=== PATIENT | female | born 1945 | race Hispanic/Latino ===

== ENCOUNTER 2019-07-18 17:20 | Inpatient (IN) | payer MEDICARE ==
[~2019-07-18] VITALS: Ht 172.7 cm; Wt 104.7 kg
[~2019-07-18 17:20] MED LIST: ALBUMIN (HUMAN) 25% 50 ML IV ONE; AMINOCAPROIC ACID 250 MG/ML 20 ML VIAL IV ONE; CALCIUM CHLORIDE 100 MG/ML 10 ML SYG IVP ONE; HEPARIN SODIUM 1000UNIT/ML 10ML VIAL IV ONE; MAGNESIUM SULFATE 1 GM/2 ML VIAL IM ONE; MANNITOL 25% 50ML VIAL IV ONE; PHENYLEPHRINE HCL 10 MG/ML 1ML VIAL IV ONE; SODIUM BICARB 8.4% 50ML SYRINGE IVP ONE
[2019-07-18] MEDS ORDERED: LIDOCAINE HCL-MPF 1% 2ML VIAL IV PRN (17:30)
[2019-07-18] MEDS ORDERED: POTASSIUM CHLORIDE 20MEQ/100ML 100 ML IV PRN (17:30)
[2019-07-18] MEDS ORDERED: DEXTROSE 50%-WATER 50 ML DISP.SYRIN IV PRN (17:30)
[2019-07-18] MEDS ORDERED: POTASSIUM CHLORIDE 10% ELIXIR 20 MEQ/15 ML UDCUP PO PRN (17:30)
[2019-07-18] MEDS ORDERED: POTASSIUM CHLORIDE 20 MEQ ERTAB PO PRN (17:30)
[2019-07-18] MEDS ORDERED: GLUCAGON 1MG KIT 1 MG ML IM PRN (17:30)
[2019-07-18 17:55] VITALS: BP 104/57
[2019-07-18 18:09] LABS: BASOPHILS % (AUTO) 0.3 % (0.0-5.0); LYMPHOCYTES % (AUTO) 8.9 % (21.0-51.0); MEAN CORPUSCULAR HEMOGLOBIN 30.1 pg (27.0-33.0); MEAN CORPUSCULAR HGB CONC 33.2 g/dL (32.0-36.0); MEAN CORPUSCULAR VOLUME 90.4 fL (79-99); NEUTROPHILS % (AUTO) 80.2 % (40.0-77.0); PLATELET COUNT (AUTO) 218 K/uL (130-400); RED BLOOD CELL COUNT(AUTO) 3.76 MIL/uL (4.00-5.50); RED CELL DISTRIBUTION WIDTH 16.7 % (11.0-15.5); WHITE BLOOD COUNT (AUTO) 18.7 K/uL (4.8-10.8)
[2019-07-18 18:28] LABS: ALBUMIN 1.4 g/dL (3.5-5.0); BILIRUBIN,TOTAL 1.3 mg/dL (0.2-1.0); POTASSIUM 3.2 mmol/L (3.5-5.1); TOTAL PROTEIN, SERUM 5.8 g/dL (6.0-8.3)
[2019-07-18 18:40] LABS: INR 0.99 (0.85-1.15); PARTIAL THROMBOPLASTIN TIME 29.4 SEC (26.3-35.5); PROTHROMBIN TIME 10.7 SEC (9.6-11.6)
[2019-07-18 18:41] LABS: HEMOGLOBIN A1C 5.8 % (4.0-6.0)
[2019-07-18 19:26] LABS: B-TYPE NATRIURETIC PEPTIDE 218 pg/mL (0-100)
[2019-07-18 19:40] VITALS: BP 99/52
[2019-07-18] MEDS ORDERED: NAPR-1023 PO (20:10)
[2019-07-18] MEDS ORDERED: ROSU20TA23 PO (20:12)
[2019-07-18] MEDS ORDERED: GABA-531 PO (20:12)
[2019-07-18] MEDS ORDERED: LISI-613 PO (20:12)
[2019-07-18] MEDS ORDERED: OMEP40CA13 PO (20:12)
[2019-07-18] MEDS: INSULIN HUMULIN R 100 UNIT/ML 3ML SQ SCH (20:48)
[2019-07-18] MEDS ORDERED: TRAMADOL HCL 50 MG TABLET PO PRN ×2 (21:45)
[2019-07-18] MEDS ORDERED: ACETAMINOPHEN 325 MG TAB PO PRN (21:45)
[2019-07-19] VITALS (17 sets, daily range): BP systolic 82–158; BP diastolic 48–92
[2019-07-19] MEDS ORDERED: SODIUM CHLORIDE 0.9% 500ML 500 ML IV ONE (01:14)
[2019-07-19] MEDS: LIDOCAINE HCL-MPF 1% 2ML VIAL IV PRN ×2 (01:17→06:19)
[2019-07-19] MEDS: POTASSIUM CHLORIDE 20MEQ/100ML 100 ML IV PRN ×7 (01:18→23:48)
[2019-07-19 03:54] LABS: HEMATOCRIT 31.7 % (36-48); MEAN CORPUSCULAR HEMOGLOBIN 30.3 pg (27.0-33.0); MEAN CORPUSCULAR HGB CONC 34.1 g/dL (32.0-36.0); PLATELET COUNT (AUTO) 227 K/uL (130-400); RED BLOOD CELL COUNT(AUTO) 3.56 MIL/uL (4.00-5.50); RED CELL DISTRIBUTION WIDTH 16.2 % (11.0-15.5)
[2019-07-19 04:04] LABS: CREATININE 1.9 mg/dL (0.5-1.5); POTASSIUM 3.6 mmol/L (3.5-5.1)
[2019-07-19] MEDS: INSULIN HUMULIN R 100 UNIT/ML 3ML SQ SCH (06:05)
--- NOTE | 2019-07-19 06:48 | NUR ---
PT TAKEN TO OR PREP AT THIS TIME BY TECH AND RN. NO S/S OF DISTRESS. PT IN BED. BEDSIDE REPORT DONE AT THIS TIME.
[2019-07-19] MEDS ORDERED: NOREPINEPHRINE BITARTRATE 8 MG in DEXTROSE 5%-WATER 250 ML IV PRN (07:00)
[2019-07-19] MEDS ORDERED: EPINEPHRINE 10 MG in SODIUM CHLORIDE 0.9% 240 ML IV PRN (07:00)
[2019-07-19] MEDS ORDERED: AMINOCAPROIC ACID 15,000 MG in SODIUM CHLORIDE 0.9% 500ML 420 ML IV PRN (07:00)
[2019-07-19] MEDS ORDERED: SODIUM CHLORIDE 0.9% 1000ML 1,000 ML IV ONE ×2 (07:14→12:00)
[2019-07-19] MEDS ORDERED: CLINDAMYCIN 900 MG/D5% WATER 50 ML IV ONE (07:15)
[2019-07-19] MEDS ORDERED: NITROGLYCERIN 50 MG/D5% WATER 1 BOT ONE (07:25)
[2019-07-19] MEDS ORDERED: ROPIVACAINE 0.5% 5MG/ML 30ML IJ ONE (07:39)
[2019-07-19] MEDS ORDERED: CLINDAMYCIN PHOSPHATE 150 MG/ML 6ML VIAL ONE (07:39)
--- NOTE | 2019-07-19 07:45 | NUR ---
IV SITE iv right forearm infiltrated ,dcd restarted left anticub with 20 gauge by Ayana Pringle RN Addendum: 07/19/19 at 0820 by BEV LUBIN RN RN Amended: Links added.
--- NOTE | 2019-07-19 08:16 | NUR ---
RASH BRIGHT RED RASH PRESENT GROIN AREA AKASH INNER THIGHS UPPER TORSO Addendum: 07/19/19 at 0820 by BEV LUBIN RN RN Amended: Links added.
[2019-07-19] MEDS ORDERED: CEFAZOLIN SODIUM 1 GM VIAL IVP PRN (08:30)
[2019-07-19] MEDS ORDERED: PROTAMINE SULFATE 10 MG/ML 25ML VIAL IV ONE (08:55)
[2019-07-19] MEDS ORDERED: NOREPINEPHRINE BITARTRATE 1 MG/1 ML ML IV ONE (08:55)
[2019-07-19] MEDS ORDERED: SODIUM BICARB 50MEQ 50ML VIAL ONE ×2 (08:55→12:26)
[2019-07-19] MEDS ORDERED: FENTANYL CITRATE PF 50 MCG/1 ML 20ML VIAL IJ ONE (08:55)
[2019-07-19] MEDS ORDERED: HEPARIN SODIUM 1000UNIT/ML 10ML VIAL ONE (08:55)
[2019-07-19] MEDS ORDERED: MIDAZOLAM HCL 1 MG/ML 2ML VIAL ONE (08:55)
[2019-07-19] MEDS ORDERED: AMINOCAPROIC ACID 250 MG/ML 20 ML VIAL IV ONE (08:55)
[2019-07-19] MEDS ORDERED: EPINEPHRINE 1 MG/ML AMPULE ONE (08:55)
[2019-07-19] MEDS ORDERED: PROPOFOL 10 MG/ML 20ML VIAL IV ONE (08:55)
[2019-07-19] MEDS ORDERED: ESMOLOL HCL 10 MG/ML 10 ML VIAL ONE (08:55)
[2019-07-19] MEDS ORDERED: LIDOCAINE PF 2% 5ML ABBOJECT ONE (08:55)
[2019-07-19] MEDS ORDERED: ROCURONIUM 10MG/1ML SYR 10 MG/ML ML ONE ×2 (08:56→10:59)
[2019-07-19] MEDS ORDERED: KETAMINE 50MG/ML SYRINGE 50 MG/ML DISP.SYRIN IV ONE (08:57)
[2019-07-19] MEDS: ATORVASTATIN CALCIUM 40 MG TABLET PO SCH (09:00)
[2019-07-19] MEDS ORDERED: PANTOPRAZOLE SODIUM 40 MG TABLET.DR PO SCH (09:00)
[2019-07-19] MEDS ORDERED: VANCOMYCIN 1GM+NS 250ML 250 ML IV ONE ×2 (09:06→19:06)
[2019-07-19] MEDS ORDERED: DELNIDO FORMULA 1 BAG IV ONE (09:22)
[2019-07-19 09:54] LABS: ABG BASE EXCESS -9.5 mmol/L (-2.0-3.0); ABG HCO3 15.8 mmol/L (21.0-28.0); ABG OXYGEN SATURATION 98.8 % (95.0-99.0); ABG PCO2 33 mmHg (32-45)
[2019-07-19] MEDS ORDERED: SODIUM CHLORIDE 0.9% 500ML 500 ML IV SCH (10:42)
[2019-07-19] MEDS ORDERED: GLUCAGON 1MG KIT 1 MG ML IM PRN (10:45)
[2019-07-19] MEDS ORDERED: NITROGLYCERIN 50 MG/D5% WATER 250 BOT IV SCH (10:45)
[2019-07-19] MEDS ORDERED: NOREPINEPHRINE 4MG/NS 250ML 250 ML IV PRN (10:45)
[2019-07-19] MEDS ORDERED: SODIUM CHLORIDE 0.9% 250 ML IV PRN (10:45)
[2019-07-19] MEDS ORDERED: MORPHINE SULFATE 4 MG/1ML SYG IV PRN (10:45)
[2019-07-19] MEDS ORDERED: INSULIN REGULAR, HUMAN 3ML 100 UNIT in SODIUM CHLORIDE 0.9% 99 ML IV SCH ×2 (10:45)
[2019-07-19] MEDS ORDERED: ACETAMINOPHEN 650 MG SUPPOSITORY RC PRN (10:45)
[2019-07-19] MEDS ORDERED: DEXTROSE 50%-WATER 50 ML DISP.SYRIN IV PRN (10:45)
[2019-07-19] MEDS ORDERED: AMINOCAPROIC ACID 15,000 MG in SODIUM CHLORIDE 0.9% 250 ML IV SCH (10:45)
[2019-07-19] MEDS ORDERED: ALBUMIN (HUMAN) 5% 250 ML IV PRN (10:45)
[2019-07-19] MEDS ORDERED: CALCIUM GLUCONATE 1 GM in SODIUM CHLORIDE 0.9% 50 ML IV PRN (10:45)
[2019-07-19] MEDS ORDERED: SODIUM CHLORIDE 0.9% 10 ML VIAL IVP PRN (10:45)
[2019-07-19] MEDS ORDERED: MORPHINE SULFATE 2 MG/ML 1ML SYG IV PRN (10:45)
[2019-07-19] MEDS ORDERED: ONDANSETRON HCL 4 MG/2 ML VIAL IV PRN (10:45)
[2019-07-19] MEDS ORDERED: POTASSIUM PHOS 15 mMOL+NS250ML 250 ML IV PRN (10:45)
[2019-07-19] MEDS ORDERED: MAGNESIUM 2GM PREMIX 50ML 50 ML IV PRN (10:45)
[2019-07-19] MEDS ORDERED: EPINEPHRINE 10 MG in DEXTROSE 5%-WATER 250 ML IV PRN (10:45)
[2019-07-19] MEDS ORDERED: ACETAMINOPHEN 325 MG TAB PO PRN (10:45)
[2019-07-19] MEDS ORDERED: SODIUM CHLORIDE 0.9% 1000ML 1,000 ML IV SCH (10:45)
[2019-07-19] MEDS ORDERED: PROPOFOL 1000 MG/100 ML 100 ML IV PRN (10:45)
[2019-07-19 11:17] LABS: ABG BASE EXCESS -5.1 mmol/L (-2.0-3.0); ABG OXYGEN SATURATION 98.5 % (95.0-99.0); ABG PCO2 26 mmHg (32-45)
[2019-07-19] MEDS ORDERED: PROTAMINE SULFATE 10 MG/ML 5 ML VIAL ONE (11:39)
[2019-07-19 11:47] LABS: ABG BASE EXCESS -0.6 mmol/L (-2.0-3.0); ABG HCO3 21.7 mmol/L (21.0-28.0); ABG OXYGEN SATURATION 98.2 % (95.0-99.0); ABG PCO2 27 mmHg (32-45)
[2019-07-19] MEDS ORDERED: AMIODARONE HCL 50 MG/ML 3 ML VIAL ONE (11:54)
[2019-07-19 12:20] LABS: ABG BASE EXCESS -6.6 mmol/L (-2.0-3.0); ABG HCO3 18.3 mmol/L (21.0-28.0); ABG OXYGEN SATURATION 96.8 % (95.0-99.0); ABG PCO2 34 mmHg (32-45)
--- NOTE | 2019-07-19 12:52 | NUR ---
S/P MICS MVR RECEIVED SEDATED AND INTUBATED. ET TUBE SECURE. R.T. HERE AND CONNECTED TO VENT ON PRESCRIBED VENT SETTINGS. LEVOPHED DRIP 10MCG/MIN, AMIKAR DRIP INFUSING AT 50ML/HR. CHEST TUBES X2 SECURE AND PATENT, DRAINING INTO ATRIUM 20CM H20 SUCTION. RASH NOTED THROUGHOUT BODY, PREVIOUSLY ASSESSED BY MD. INITIATED CVR PROTOCOLS FOR VENT AND DRIP WEANING. BEDSIDE MONITORING INITIATED. SINUS TACHYCARDIA HR 110. ALL LINES SECURED, LEVELED AND ZEROED.
[2019-07-19 13:04] LABS: ABG BASE EXCESS -2.9 mmol/L (-2.0-3.0); ABG HCO3 22.4 mmol/L (21.0-28.0); ABG OXYGEN SATURATION 97.4 % (95.0-99.0); ABG PCO2 41 mmHg (32-45)
[2019-07-19 13:31] LABS: HEMATOCRIT 27.1 % (36-48); MEAN CORPUSCULAR HEMOGLOBIN 31.7 pg (27.0-33.0); MEAN CORPUSCULAR HGB CONC 35.4 g/dL (32.0-36.0); MEAN CORPUSCULAR VOLUME 89.4 fL (79-99); PLATELET COUNT (AUTO) 179 K/uL (130-400); RED BLOOD CELL COUNT(AUTO) 3.03 MIL/uL (4.00-5.50); RED CELL DISTRIBUTION WIDTH 16.3 % (11.0-15.5); WHITE BLOOD COUNT (AUTO) 28.7 K/uL (4.8-10.8)
[2019-07-19] MEDS: SODIUM BICARB 50MEQ 50ML VIAL IV PRN ×5 (13:32→20:48)
[2019-07-19 13:42] LABS: INR 1.16 (0.85-1.15); PARTIAL THROMBOPLASTIN TIME 31.3 SEC (26.3-35.5); PROTHROMBIN TIME 12.5 SEC (9.6-11.6)
[2019-07-19 13:44] LABS: CREATININE 1.5 mg/dL (0.5-1.5); PHOSPHORUS 4.5 mg/dL (2.5-4.9); POTASSIUM 3.3 mmol/L (3.5-5.1)
--- NOTE | 2019-07-19 14:20 | NUR ---
NOTIFIED PHARMACY TO REVIEW SUSCEPTIBILITY REPORTS FOR ANTIBIOTIC RECOMMENDATIONS REQUESTED BY DR RAMIREZ.
[2019-07-19] MEDS ORDERED: Q-PUMP 1 EACH IRRIG SCH (14:45)
--- NOTE | 2019-07-19 16:16 | NUR ---
PHARMACIST, DARYA RECOMMENDS LEVAQUIN 750MG IV Q48HR. NOTIFIED DR JAMES ANDRADE'S NURSE.
[2019-07-19 17:09] LABS: ABG BASE EXCESS -3.1 mmol/L (-2.0-3.0); ABG HCO3 21.8 mmol/L (21.0-28.0); ABG OXYGEN SATURATION 95.3 % (95.0-99.0); ABG PCO2 39 mmHg (32-45)
--- NOTE | 2019-07-19 17:17 | NUR ---
RECEIVED CALL FROM [facility]. REPORTS THAT ROCEPHIN 1GM IV Q24HR WILL BE BETTER FOR PATIENT INSTEAD OF LEVAQUIN. NOTIFIED BRIAN MILLAN. NO ORDERS AT THIS TIME.
[2019-07-19 17:29] LABS: CREATININE 1.6 mg/dL (0.5-1.5); POTASSIUM 3.9 mmol/L (3.5-5.1)
[2019-07-19 20:37] LABS: ABG BASE EXCESS -2.2 mmol/L (-2.0-3.0); ABG HCO3 21.3 mmol/L (21.0-28.0); ABG OXYGEN SATURATION 96.9 % (95.0-99.0); ABG PCO2 32 mmHg (32-45)
[2019-07-19] MEDS: VANCOMYCIN 1GM+NS 250ML 250 ML IV SCH (21:03)
[2019-07-19] MEDS: FAMOTIDINE/PF 20 MG/2 ML VIAL IV SCH (21:03)
[2019-07-19] MEDS: TRAMADOL HCL 50 MG TABLET PO PRN (22:55)
[2019-07-19 23:34] LABS: ABG BASE EXCESS 0.7 mmol/L (-2.0-3.0); ABG HCO3 24.4 mmol/L (21.0-28.0); ABG OXYGEN SATURATION 94.8 % (95.0-99.0); ABG PCO2 35 mmHg (32-45)
[2019-07-19] MEDS ORDERED: CALCIUM GLUCONATE 1 GM/10 ML VIAL IV ONE (23:43)
[2019-07-20] VITALS (24 sets, daily range): BP systolic 100–153; BP diastolic 51–82
--- NOTE | 2019-07-20 | NUR ---
Patient barely did a niff continues to go back to sleep not able to do Vital Capacity goes right back to sleep. Addendum: 07/20/19 at 0002 by MAXINE MARTE RT Amended: Links added.
[2019-07-20] MEDS ORDERED: ALBUMIN (HUMAN) 5% 250 ML IV ONE (01:29)
[2019-07-20] MEDS ORDERED: ALBUMIN (HUMAN) 5% 250 ML IV STA (01:56)
[2019-07-20 03:03] LABS: ABG BASE EXCESS 0.8 mmol/L (-2.0-3.0); ABG HCO3 25.3 mmol/L (21.0-28.0); ABG OXYGEN SATURATION 95.3 % (95.0-99.0); ABG PCO2 40 mmHg (32-45)
[2019-07-20 05:01] LABS: HEMATOCRIT 25.5 % (36-48); MEAN CORPUSCULAR HEMOGLOBIN 30.3 pg (27.0-33.0); MEAN CORPUSCULAR HGB CONC 34.1 g/dL (32.0-36.0); MEAN CORPUSCULAR VOLUME 88.9 fL (79-99); PLATELET COUNT (AUTO) 168 K/uL (130-400); RED BLOOD CELL COUNT(AUTO) 2.87 MIL/uL (4.00-5.50); RED CELL DISTRIBUTION WIDTH 15.9 % (11.0-15.5); WHITE BLOOD COUNT (AUTO) 23.3 K/uL (4.8-10.8)
--- NOTE | 2019-07-20 05:10 | NUR ---
Extubated patient at 0510 to Aerosol mask at 40%Fio2 . Patient lethargic all night, but started waking up and followed commands. Passed respiratory tests. NIF of -32 and VC 778.
[2019-07-20 05:20] LABS: INR 1.08 (0.85-1.15); PARTIAL THROMBOPLASTIN TIME 29.5 SEC (26.3-35.5); PROTHROMBIN TIME 11.6 SEC (9.6-11.6)
[2019-07-20 05:32] LABS: BILIRUBIN,TOTAL 1.1 mg/dL (0.2-1.0); CREATININE 1.7 mg/dL (0.5-1.5); MAGNESIUM 3.3 mg/dL (1.80-2.40); PHOSPHORUS 3.6 mg/dL (2.5-4.9); POTASSIUM 3.8 mmol/L (3.5-5.1); TOTAL PROTEIN, SERUM 5.4 g/dL (6.0-8.3)
[2019-07-20] MEDS ORDERED: CALCIUM GLUCONATE 1 GM/10 ML VIAL IV ONE ×2 (05:43→19:46)
[2019-07-20] MEDS: POTASSIUM CHLORIDE 20MEQ/100ML 100 ML IV PRN ×3 (05:44→23:30)
[2019-07-20 06:59] LABS: ABG BASE EXCESS -2.7 mmol/L (-2.0-3.0); ABG HCO3 21.9 mmol/L (21.0-28.0); ABG OXYGEN SATURATION 94.5 % (95.0-99.0); ABG PCO2 37 mmHg (32-45)
--- NOTE | 2019-07-20 07:00 | NUR ---
ASSUMED CARE VERY DROWSY, AROUSABLE. ORIENTED TO PERSON, PLACE, TIME AND SITUATION. 40% AEROSOL FACE MASK. NO RESPIRATORY DISTRESS NOTED. SINUS RHYTHM WITH NO ECTOPY NOTED. SURGICAL DRESSING WITH SPOTS MARKED. CHEST TUBES X2, SECURE AND PATENT, DRAINING TO 20CM H20 SUCTION. ORDOÑEZ CATHETER SECURE AND DRAINING. BLE'S SCD'S. CONTINUES ON LEVOPHED DRIP 6MCG/MIN VIA RT IJ CORDIS. WILL CONTINUE TO WEAN DRIP PER CVR PROTOCOL. ROPIVICAINE PAIN PUMP WITH CONNECTIONS SECURE AND INFUSING AT 6ML/HR. NO COMPLAINTS OF PAIN AT THIS TIME.
[2019-07-20] MEDS: SODIUM BICARB 50MEQ 50ML VIAL IV PRN (07:19)
[2019-07-20] MEDS: ASPIRIN 81 MG EC TAB PO SCH (09:10)
[2019-07-20] MEDS: VANCOMYCIN 1GM+NS 250ML 250 ML IV SCH ×2 (09:10→19:43)
[2019-07-20] MEDS: FUROSEMIDE 10 MG/ML 2ML VIAL IV SCH ×2 (09:11→19:43)
[2019-07-20] MEDS: FAMOTIDINE/PF 20 MG/2 ML VIAL IV SCH ×2 (09:11→19:42)
[2019-07-20] MEDS: ATORVASTATIN CALCIUM 40 MG TABLET PO SCH (09:12)
[2019-07-20] MEDS: CEFTRIAXONE SODIUM 1 GM IVP SCH (09:18)
--- NOTE | 2019-07-20 11:00 | NUR ---
ATTEMPTED OUT OF BED TO BEDSIDE CHAIR. VERY WEAK AND DECONDITIONED. PHYSICAL THERAPY SAT HER UP ON EDGE OF BED TO DANGLE. -REFER TO P.T. NOTE. TOLERATED WELL; NO CHANGE IN RHYTHM OR V/S.
--- NOTE | 2019-07-20 13:30 | NUR ---
CM NOTE/SISTER NEXT OF KIN BOTH FRIENDS LISTED ON FACESHEET DID NOT ANSWER FOR TELEPHONE CONSENT FOR [facility]. PATIENT VERY GROGGY AND LETHARGIC FOR DECISION MAKING. PER PRIMARY NURSE, VALARIE YEPEZ, HAS PHONE NUMBER TO SISTER OUT OF STATE. NOAH MURGUIA [phone], CALLED, VOICEMAIL LEFT. WILL FOLLOW UP ACCORDINGLY.
--- NOTE | 2019-07-20 15:01 | NUR ---
CM NOTE SW attempted to contact patient's emergency contacts: Nisreen Rincon and Jeannine Ortiz but Ms. Rincon did not answer and phone number for Jeannine Ortiz is disconnected. SW will continue to follow up to complete initial assessment.
--- NOTE | 2019-07-20 15:54 | NUR ---
CM NOTE NOAH (SISTER) CALLED BACK. TELEPHONE CONSENT GIVEN FOR [facility] FOR IV ABT [id number]. REFERRAL FAXED AND CONFIRMED RECEIVED. PENDING PICC LINE FOR IV ABT USE AT HOME. COVID ASSESSEMENT PENDING SIGNATURE, PRIMARY NURSE VALARIE YEPEZ, MADE AWARE. CM TO FOLLOW UP ACCORDINGLY.
[2019-07-20 16:57] LABS: ABG BASE EXCESS 1.5 mmol/L (-2.0-3.0); ABG HCO3 23.9 mmol/L (21.0-28.0); ABG OXYGEN SATURATION 93.1 % (95.0-99.0); ABG PCO2 32 mmHg (32-45)
--- NOTE | 2019-07-20 17:00 | NUR ---
CONFUSED PHRASES BECOMING MORE ANXIOUS AND RESTLESS. CHECKED ABG'S. REPORTED RESULTS TO DR RAMIREZ. PLACED ON 100% NRB MASK. INSTRUCTED ON DEEP BREATHING AND USE OF I.S. O2 SAT INCREASED TO 100%. WILL RECHECK ABG'S. Addendum: 07/20/19 at 1801 by KAREEM ASHLEY RN RN ALSO NOTIFIED DR VERNON OF ABG RESULTS. ORDER RECEIVED FOR BIPAP PRN
[2019-07-20 17:46] LABS: MAGNESIUM 2.2 mg/dL (1.80-2.40); POTASSIUM 3.7 mmol/L (3.5-5.1)
[2019-07-20 18:09] LABS: ABG BASE EXCESS -4.7 mmol/L (-2.0-3.0); ABG HCO3 17.5 mmol/L (21.0-28.0); ABG PCO2 26 mmHg (32-45)
[2019-07-20 18:49] LABS: ABG BASE EXCESS 1.1 mmol/L (-2.0-3.0); ABG HCO3 25.3 mmol/L (21.0-28.0); ABG OXYGEN SATURATION 96.6 % (95.0-99.0); ABG PCO2 38 mmHg (32-45)
[2019-07-21] VITALS (26 sets, daily range): BP systolic 83–146; BP diastolic 39–93
[2019-07-21 00:21] LABS: ABG BASE EXCESS 1.8 mmol/L (-2.0-3.0); ABG HCO3 25.5 mmol/L (21.0-28.0); ABG OXYGEN SATURATION 94.6 % (95.0-99.0); ABG PCO2 36 mmHg (32-45)
[2019-07-21] MEDS: POTASSIUM CHLORIDE 20MEQ/100ML 100 ML IV PRN ×2 (02:23→02:24)
[2019-07-21 04:39] LABS: HEMATOCRIT 22.2 % (36-48); MEAN CORPUSCULAR HEMOGLOBIN 29.7 pg (27.0-33.0); MEAN CORPUSCULAR HGB CONC 33.3 g/dL (32.0-36.0); MEAN CORPUSCULAR VOLUME 89.2 fL (79-99); PLATELET COUNT (AUTO) 179 K/uL (130-400); RED BLOOD CELL COUNT(AUTO) 2.49 MIL/uL (4.00-5.50); RED CELL DISTRIBUTION WIDTH 15.9 % (11.0-15.5); WHITE BLOOD COUNT (AUTO) 22.3 K/uL (4.8-10.8)
[2019-07-21 04:59] LABS: ABG BASE EXCESS 2.1 mmol/L (-2.0-3.0); ABG HCO3 25.9 mmol/L (21.0-28.0); ABG OXYGEN SATURATION 97.7 % (95.0-99.0); ABG PCO2 38 mmHg (32-45)
[2019-07-21 05:01] LABS: CREATININE 1.7 mg/dL (0.5-1.5); POTASSIUM 4.4 mmol/L (3.5-5.1)
[2019-07-21 05:36] LABS: MAGNESIUM 2.2 mg/dL (1.80-2.40)
[2019-07-21] MEDS: FUROSEMIDE 20 MG TABLET PO SCH ×2 (08:27→16:24)
[2019-07-21] MEDS: ATORVASTATIN CALCIUM 40 MG TABLET PO SCH (08:28)
[2019-07-21] MEDS: METOPROLOL TARTRATE 25 MG TAB PO SCH ×2 (08:28→20:55)
[2019-07-21] MEDS: CEFTRIAXONE SODIUM 1 GM IVP SCH (08:28)
[2019-07-21] MEDS: ASPIRIN 81 MG EC TAB PO SCH (08:28)
[2019-07-21] MEDS ORDERED: AMIODARONE HCL 360 MG in DEXTROSE 5%-WATER 200 ML IV SCH (09:00)
[2019-07-21] MEDS ORDERED: DEXTROSE 5% IV PRN (09:00)
[2019-07-21] MEDS ORDERED: WATER IV PRN (09:00)
[2019-07-21] MEDS ORDERED: AMIODARONE HCL IV PRN (09:00)
[2019-07-21] MEDS ORDERED: AMIODARONE HCL 150 MG in DEXTROSE 5%-WATER 100 ML IV PRN (09:00)
[2019-07-21] MEDS: FAMOTIDINE/PF 20 MG/2 ML VIAL IV SCH ×2 (09:34→20:54)
[2019-07-21] MEDS: INSULIN HUMULIN R 100 UNIT/ML 3ML SQ SCH ×3 (11:30→20:55)
--- NOTE | 2019-07-21 19:30 | NUR ---
NURSING ROUNDS Pt received resting in bed with an amiodarone drip infusing at 16.6 cc/hr after a reported episode of afib with rvr in the am. Presently running normal sinus rhythm in the 70's to 80's, normotensive. With gen swelling, markie upper extremities with marked bruising and front and back with scattered rashes from a previous allergic reaction to Nafcillin. Non verbal but moves head and starts moving both hands with mittens with name calling. Sounding very congested, scattered crackles with int rhonchi more prominent on the upper lung zamora. Oral suction done which stimulated the pt to start coughing more, moderate amount of whitish very sticky secretions suctioned out, good oral care given. O2 on at 4l per nasal cannula, humidifier added to the set up. Rt chest tube to 20cm water suction, draining well, small clots getting drained out. Patient afebrile, will continue to monitor.
--- NOTE | 2019-07-21 22:45 | NUR ---
MD UPDATED Dr. Pandey on the phone to ask about the result of the CT of the head, no hemorrhage noted. Pt drowsy but withdraws to touch. Received with markie mittens on, reported pulling on everything within her reach without it. Able to move the markie upper extremities more than the markie lower extremities. Resists repositioning in the bed, head of the bed up at 45 degrees. No signs of discomfort as per behavioral scale.
[2019-07-22] VITALS (24 sets, daily range): BP systolic 99–157; BP diastolic 58–96
--- NOTE | 2019-07-22 03:00 | NUR ---
COMFORT Patient sleeping more comfortably after she was started with the oral suction. RT did a nasotracheal suction as well around 0230, moderate whitish, pinkish tinged secretions suctioned out. Patient breathing better, no audible crackles at this time as compared with the beginning of the shift.No bleeding from the chest tube, with adequate urine output. Continues to be afebrile, no signs of distress noted as per behavioral scale, will continue to monitor.
[2019-07-22 03:56] LABS: HEMATOCRIT 22.1 % (36-48); MEAN CORPUSCULAR HEMOGLOBIN 30.8 pg (27.0-33.0); MEAN CORPUSCULAR VOLUME 93.2 fL (79-99); NUCLEATED RED BLOOD CELLS 0.4 % (0.0-0.19); PLATELET COUNT (AUTO) 224 K/uL (130-400); RED BLOOD CELL COUNT(AUTO) 2.37 MIL/uL (4.00-5.50); RED CELL DISTRIBUTION WIDTH 16.4 % (11.0-15.5); WHITE BLOOD COUNT (AUTO) 21.8 K/uL (4.8-10.8)
[2019-07-22 04:12] LABS: CREATININE 1.9 mg/dL (0.5-1.5); POTASSIUM 4.1 mmol/L (3.5-5.1)
--- NOTE | 2019-07-22 06:00 | NUR ---
PATIENT UPDATE Slept well overnight, breath sounds better in between suction. Rt chest tube with 250 cc's chest tube output within the last 12 hrs. No chest pain, no dysrhythmias , maintaining on normal sinus rhythm bet 70's to 80's. Afebrile, t max at 98.9. Continues on the Amiodarone drip until the infusion gets completed, no signs of discomfort noted.
[2019-07-22] MEDS: INSULIN HUMULIN R 100 UNIT/ML 3ML SQ SCH ×4 (06:14→21:00)
[2019-07-22] MEDS: METOPROLOL TARTRATE 25 MG TAB PO SCH ×2 (08:46→21:04)
[2019-07-22] MEDS: ATORVASTATIN CALCIUM 40 MG TABLET PO SCH (08:46)
[2019-07-22] MEDS: ASPIRIN 81 MG EC TAB PO SCH (08:47)
[2019-07-22] MEDS: FAMOTIDINE/PF 20 MG/2 ML VIAL IV SCH ×2 (08:47→21:02)
[2019-07-22] MEDS: CEFTRIAXONE SODIUM 1 GM IVP SCH (08:47)
[2019-07-22] MEDS: ENOXAPARIN SODIUM 30 MG/0.3 ML SQ SCH (08:48)
[2019-07-22] MEDS: FUROSEMIDE 20 MG TABLET PO SCH (08:53)
[2019-07-22] MEDS: AMIODARONE HCL 450 MG in DEXTROSE 5%-WATER 250 ML IV PRN ×2 (09:09→21:05)
[2019-07-22] MEDS: FUROSEMIDE 100 MG in SODIUM CHLORIDE 0.9% 100 ML IV SCH ×2 (12:09→21:03)
[2019-07-22 17:15] LABS: MAGNESIUM 2.1 mg/dL (1.80-2.40); POTASSIUM 3.6 mmol/L (3.5-5.1)
[2019-07-22] MEDS: CEFAZOLIN SODIUM 1 GM VIAL IVP SCH (17:48)
[2019-07-22] MEDS ORDERED: PHARMACY COMMUNICATION MISC SCH (19:45)
[2019-07-22] MEDS: POTASSIUM CHLORIDE 20MEQ/100ML 100 ML IV PRN (21:03)
[2019-07-23] VITALS (28 sets, daily range): BP systolic 101–172; BP diastolic 60–98
[2019-07-23 03:52] LABS: HEMATOCRIT 21.4 % (36-48); MEAN CORPUSCULAR HEMOGLOBIN 31.4 pg (27.0-33.0); MEAN CORPUSCULAR HGB CONC 33.2 g/dL (32.0-36.0); MEAN CORPUSCULAR VOLUME 94.7 fL (79-99); NUCLEATED RED BLOOD CELLS 0.6 % (0.0-0.19); PLATELET COUNT (AUTO) 240 K/uL (130-400); RED BLOOD CELL COUNT(AUTO) 2.26 MIL/uL (4.00-5.50); RED CELL DISTRIBUTION WIDTH 16.1 % (11.0-15.5); WHITE BLOOD COUNT (AUTO) 15.4 K/uL (4.8-10.8)
[2019-07-23 04:04] LABS: POTASSIUM 3.8 mmol/L (3.5-5.1)
[2019-07-23] MEDS: CEFAZOLIN SODIUM 1 GM VIAL IVP SCH ×2 (04:53→15:17)
[2019-07-23] MEDS: AMIODARONE HCL 450 MG in DEXTROSE 5%-WATER 250 ML IV PRN (04:54)
[2019-07-23] MEDS: POTASSIUM CHLORIDE 20MEQ/100ML 100 ML IV PRN (05:17)
[2019-07-23] MEDS: INSULIN HUMULIN R 100 UNIT/ML 3ML SQ SCH ×4 (06:29→20:19)
[2019-07-23] MEDS: FUROSEMIDE 100 MG in SODIUM CHLORIDE 0.9% 100 ML IV SCH ×2 (07:52→18:30)
[2019-07-23] MEDS: FAMOTIDINE/PF 20 MG/2 ML VIAL IV SCH ×2 (08:04→20:18)
[2019-07-23] MEDS: ATORVASTATIN CALCIUM 40 MG TABLET PO SCH (08:05)
[2019-07-23] MEDS: METOPROLOL TARTRATE 25 MG TAB PO SCH ×2 (08:05→20:19)
[2019-07-23] MEDS: ENOXAPARIN SODIUM 30 MG/0.3 ML SQ SCH (08:40)
--- NOTE | 2019-07-23 08:44 | NUR ---
PER DR RAMIREZ, HOLD LOVENOX, UNTIL CHEST TUBES REMOVED
--- NOTE | 2019-07-23 09:40 | NUR ---
DR RAMIREZ NOTIFIED VIA PHONE ABOUT CURRENT HR RATE: AFIB 120-130'S , NEW ORDERS GIVEN TO D/C AMIODARONE DRIP AND START DILTIAZEM, PER PROTOCOL.
[2019-07-23] MEDS ORDERED: DILTIAZEM HCL 5 MG/ML 5 ML VIAL IVP PRN (09:45)
--- NOTE | 2019-07-23 09:51 | NUR ---
ASSESSMENT FOR PICC PLACEMENT PER REX YEPEZ TO WAIT TO START PICC LINE , DUE TO PT BEING ON A-FIB AND NEEDING TO STABILIZED WITH MEDS. WILL COME BACK.
[2019-07-23] MEDS: ASPIRIN 81MG TAB.CHEW PO SCH (09:52)
[2019-07-23] MEDS: DILTIAZEM HCL 125 MG/25 ML 125 MG in SODIUM CHLORIDE 0.9% 100 ML IV PRN ×2 (09:59→21:08)
[2019-07-23 10:38] LABS: INR 1.28 (0.85-1.15); PARTIAL THROMBOPLASTIN TIME 30.2 SEC (26.3-35.5); PROTHROMBIN TIME 13.7 SEC (9.6-11.6)
--- NOTE | 2019-07-23 12:39 | NUR ---
RD NOTIFICATION - TUBE FEEDING RECOMMENDATIONS Pt with NGT to be placed. TF Recommendations: Jevity 1.5, initiate at 20mls/hr for 5 hours. Rec to adv as tolerated by 5 mls every 5 hours to goal of 55mls/hr (1980kcal, 84gm protein). Recommend flushes: 130mls Q4 hours Recommendations placed in Pt Chart. Pt s/p MVR. Not following commands. RD to continue to monitor. Please notify as additional concerns arise. Thank you. Addendum: 07/23/19 at [address] Amended: Links added.
--- NOTE | 2019-07-23 14:05 | NUR ---
DR CHRISTIAN AT BEDSIDE, NEW ORDERS GIVEN.
[2019-07-23] MEDS ORDERED: METOPROLOL TARTRATE 1 MG/ML 5ML VIAL IV PRN (14:15)
[2019-07-23] MEDS: RIFAMPIN 300 MG CAPSULE PO SCH (14:42)
[2019-07-24] VITALS (28 sets, daily range): BP systolic 101–148; BP diastolic 60–100
[2019-07-24] MEDS: RIFAMPIN 300 MG CAPSULE PO SCH ×2 (00:14→14:31)
[2019-07-24 03:37] LABS: BASOPHILS % (AUTO) 0.3 % (0.0-5.0); EOSINOPHILS % (AUTO) 3.3 % (0.0-8.0); HEMATOCRIT 26.4 % (36-48); LYMPHOCYTES % (AUTO) 16.3 % (21.0-51.0); MEAN CORPUSCULAR HEMOGLOBIN 31.4 pg (27.0-33.0); MEAN CORPUSCULAR HGB CONC 33.3 g/dL (32.0-36.0); MEAN CORPUSCULAR VOLUME 94.3 fL (79-99); MONOCYTES % (AUTO) 5.3 % (3.0-13.0); NEUTROPHILS % (AUTO) 73.4 % (40.0-77.0); NUCLEATED RED BLOOD CELLS 0.7 % (0.0-0.19); PLATELET COUNT (AUTO) 222 K/uL (130-400); RED CELL DISTRIBUTION WIDTH 16.4 % (11.0-15.5); WHITE BLOOD COUNT (AUTO) 14.4 K/uL (4.8-10.8)
[2019-07-24] MEDS: CEFAZOLIN SODIUM 1 GM VIAL IVP SCH ×2 (03:47→16:43)
[2019-07-24 03:53] LABS: CREATININE 2.2 mg/dL (0.5-1.5); MAGNESIUM 2.2 mg/dL (1.80-2.40); POTASSIUM 3.4 mmol/L (3.5-5.1)
[2019-07-24] MEDS ORDERED: LIDOCAINE HCL-MPF 1% 2ML VIAL IV PRN (04:45)
[2019-07-24] MEDS: POTASSIUM CHLORIDE 20MEQ/100ML 100 ML IV PRN ×2 (05:28→13:04)
[2019-07-24] MEDS: INSULIN HUMULIN R 100 UNIT/ML 3ML SQ SCH ×4 (06:47→21:00)
[2019-07-24] MEDS: FUROSEMIDE 100 MG in SODIUM CHLORIDE 0.9% 100 ML IV SCH (08:03)
[2019-07-24] MEDS ORDERED: METOPROLOL TARTRATE 1 MG/ML 5ML VIAL IV PRN (09:30)
[2019-07-24] MEDS: AMIODARONE HCL 200 MG TABLET PO SCH ×2 (09:51→20:49)
[2019-07-24] MEDS: ASPIRIN 81MG TAB.CHEW PO SCH (09:51)
[2019-07-24] MEDS: METOPROLOL TARTRATE 25 MG TAB PO SCH ×2 (09:52→20:49)
[2019-07-24] MEDS: ATORVASTATIN CALCIUM 40 MG TABLET PO SCH (09:52)
[2019-07-24] MEDS: FAMOTIDINE/PF 20 MG/2 ML VIAL IV SCH ×2 (09:52→20:49)
[2019-07-25] VITALS (17 sets, daily range): BP systolic 101–143; BP diastolic 58–90
[2019-07-25] MEDS: RIFAMPIN 300 MG CAPSULE PO SCH ×3 (01:06→21:03)
[2019-07-25] MEDS: ACETAMINOPHEN 325 MG TAB PO PRN (02:19)
[2019-07-25 04:07] LABS: BASOPHILS % (AUTO) 0.4 % (0.0-5.0); EOSINOPHILS % (AUTO) 5.7 % (0.0-8.0); HEMATOCRIT 27.2 % (36-48); MEAN CORPUSCULAR HEMOGLOBIN 31.8 pg (27.0-33.0); MEAN CORPUSCULAR HGB CONC 32.7 g/dL (32.0-36.0); MEAN CORPUSCULAR VOLUME 97.1 fL (79-99); MONOCYTES % (AUTO) 6.1 % (3.0-13.0); NEUTROPHILS % (AUTO) 71.8 % (40.0-77.0); NUCLEATED RED BLOOD CELLS 0.6 % (0.0-0.19); PLATELET COUNT (AUTO) 208 K/uL (130-400); RED CELL DISTRIBUTION WIDTH 17.2 % (11.0-15.5); WHITE BLOOD COUNT (AUTO) 13.6 K/uL (4.8-10.8)
[2019-07-25 04:14] LABS: CREATININE 2.4 mg/dL (0.5-1.5); MAGNESIUM 2.2 mg/dL (1.80-2.40); POTASSIUM 3.2 mmol/L (3.5-5.1)
[2019-07-25] MEDS: CEFAZOLIN SODIUM 1 GM VIAL IVP SCH ×3 (04:23→21:03)
[2019-07-25] MEDS: FUROSEMIDE 100 MG in SODIUM CHLORIDE 0.9% 100 ML IV SCH ×2 (04:23→21:03)
[2019-07-25] MEDS: POTASSIUM CHLORIDE 20MEQ/100ML 100 ML IV PRN ×3 (04:53→17:32)
[2019-07-25] MEDS: INSULIN HUMULIN R 100 UNIT/ML 3ML SQ SCH ×4 (05:23→23:00)
[2019-07-25] MEDS: ASPIRIN 81MG TAB.CHEW PO SCH (09:32)
[2019-07-25] MEDS: AMIODARONE HCL 200 MG TABLET PO SCH ×2 (09:32→21:00)
[2019-07-25] MEDS: FAMOTIDINE/PF 20 MG/2 ML VIAL IV SCH ×2 (09:32→21:03)
[2019-07-25] MEDS: ATORVASTATIN CALCIUM 40 MG TABLET PO SCH (09:32)
[2019-07-25] MEDS: METOPROLOL TARTRATE 25 MG TAB PO SCH ×2 (09:33→21:03)
--- NOTE | 2019-07-25 17:30 | NUR ---
Transferred to [facility] in stable condition.
[2019-07-25] MEDS ORDERED: AMIODARONE HCL 900 MG in DEXTROSE 5%-WATER 500 ML IV SCH (20:00)
[2019-07-25] MEDS ORDERED: AMIODARONE HCL 150 MG in DEXTROSE 5%-WATER 100 ML IV SCH (20:00)
[2019-07-25] MEDS ORDERED: AMIODARONE HCL 360 MG in DEXTROSE 5%-WATER 200 ML IV SCH (20:15)
[2019-07-26] MEDS ORDERED: AMIODARONE HCL 450 MG in DEXTROSE 5%-WATER 250 ML IV SCH (03:00)
[2019-07-26 03:42] VITALS: BP 133/77
[2019-07-26 07:30] VITALS: BP 126/77
[2019-07-26] MEDS: INSULIN HUMULIN R 100 UNIT/ML 3ML SQ SCH ×4 (07:30→21:00)
[2019-07-26] MEDS: FAMOTIDINE/PF 20 MG/2 ML VIAL IV SCH ×2 (08:44→22:14)
[2019-07-26] MEDS: CEFAZOLIN SODIUM 1 GM VIAL IVP SCH ×2 (08:44→22:11)
[2019-07-26] MEDS: RIFAMPIN 300 MG CAPSULE PO SCH ×2 (08:45→22:11)
[2019-07-26] MEDS: METOPROLOL TARTRATE 25 MG TAB PO SCH ×2 (08:45→22:11)
[2019-07-26] MEDS: ASPIRIN 81MG TAB.CHEW PO SCH (08:45)
[2019-07-26] MEDS: ATORVASTATIN CALCIUM 40 MG TABLET PO SCH (08:45)
[2019-07-26] MEDS: AMIODARONE HCL 200 MG TABLET PO SCH ×2 (09:00→22:11)
[2019-07-26 09:07] LABS: BASOPHILS % (AUTO) 0.3 % (0.0-5.0); EOSINOPHILS % (AUTO) 6.3 % (0.0-8.0); HEMATOCRIT 29.3 % (36-48); LYMPHOCYTES % (AUTO) 14.3 % (21.0-51.0); MEAN CORPUSCULAR HEMOGLOBIN 30.9 pg (27.0-33.0); MEAN CORPUSCULAR HGB CONC 31.4 g/dL (32.0-36.0); MEAN CORPUSCULAR VOLUME 98.3 fL (79-99); MONOCYTES % (AUTO) 6.2 % (3.0-13.0); NEUTROPHILS % (AUTO) 72.1 % (40.0-77.0); NUCLEATED RED BLOOD CELLS 0.1 % (0.0-0.19); PLATELET COUNT (AUTO) 182 K/uL (130-400); RED BLOOD CELL COUNT(AUTO) 2.98 MIL/uL (4.00-5.50); RED CELL DISTRIBUTION WIDTH 18.3 % (11.0-15.5); WHITE BLOOD COUNT (AUTO) 15.5 K/uL (4.8-10.8)
[2019-07-26 09:40] LABS: CREATININE 2.3 mg/dL (0.5-1.5); POTASSIUM 3.1 mmol/L (3.5-5.1)
[2019-07-26 09:45] LABS: ALBUMIN 1.6 g/dL (3.5-5.0); BILIRUBIN,TOTAL 0.9 mg/dL (0.2-1.0); TOTAL PROTEIN, SERUM 6.1 g/dL (6.0-8.3)
--- NOTE | 2019-07-26 10:20 | NUR ---
DYSPHAGIA EVAL COMPLETED. +S/S OF ASPIRATION. RECOMMEND THE CONTINUATION OF NG TUBE FEEDINGS. RECOMMENDATIONS: DYSPHAGIA THERAPY 2-4X WEEK TO INCREASE ORAL MOTOR STRENGTH AND PHARYNGEAL SWALLOW: LTG#1: Pt WILL TOLERATE LEAST RESTRICTIVE DIET TO MEET NUTRITION/HYDRATION WITH NO S/S OF ASPIRATION. LTG#2: SKILLED EDUCATION Pt/FAMILY/STAFF STG#1: Pt WILL PARTICIPATE IN LARYNGEAL ELEVATION/EXCURSION EXERCISES WITH 80% ACCURACY. STG#2: Pt WILL PARTICIPATE IN TONGUE BASE RETRACTION EXERCISES WITH 80% ACCURACY. STG#3: Pt WILL PARTICIPATE IN ORAL MOTOR EXERCISES WITH 80% ACCURACY. STG#4: Pt WILL TOLERATE THERAPEUTIC TRIALS OF ICE CHIPS WITH NO OVERT S/S OF ASPIRATION. STG#5: Pt WILL BE ABLE TO PARTICIPATE IN MBSS AFTER 2-4 WEEKS OF THERAPEUTIC INTERVENTION. STG#6: SKILLED EDUCATION Pt/FAMILY/STAFF. HOSPITAL CNA COORDINATED CARE AND RECOMMENDATIONS WITH NURSE KENNY. Addendum: 07/26/[address] FRYE Amended: Links added.
[2019-07-26] MEDS: POTASSIUM CHLORIDE 20MEQ/100ML 100 ML IV PRN ×2 (10:51→18:13)
[2019-07-26 11:00] VITALS: BP 113/70
--- NOTE | 2019-07-26 14:35 | NUR ---
DR AG WILL FOLLOW IF PT GOES TO [facility] DR. RECINOS ROUNDED EARLIER- WAS ADVISED BY BRIAN THAT [facility] REFERRAL SHOULD BE STARTED TO [facility] [place] - SPOKE TO ADILENE BRITTON, NO FAMILY IN [place], SISTER OUT OF STATE GAVE VERBAL ANA M FOR [facility] HGN? CONTACTED DR. AG- RE WHO WILL FOLLOW? REPLYIED HE WOULD FOLLOW AT [facility]. WILL FOLLOW UP Addendum: 07/27/19 at 0830 by ROMEO LABOY RN CM Amended: Links added.
--- NOTE | 2019-07-26 15:51 | NUR ---
RD FOLLOW UP Pt tolerating current tube feeding: Jevity 1.5 @55mls/hr. Noted compromised renal function (BUN 43, Cr 2.3, GFR 22). RN states POC being updated. RD to continue to monitor. Please notify as concerns arise. Addendum: 07/26/19 at [address] Amended: Links added.
[2019-07-26 16:00] VITALS: BP 120/70
[2019-07-26] MEDS ORDERED: FUROSEMIDE 10 MG/ML 2ML VIAL IV SCH (17:00)
[2019-07-26 19:34] VITALS: BP 117/95
[2019-07-26] MEDS ORDERED: FUROSEMIDE 10 MG/ML 4ML VIAL IV SCH (21:00)
--- NOTE | 2019-07-26 22:00 | NUR ---
PT GIVEN MEDICATIONS THROUGH DOBHOFF, AIR BOLUS GIVEN. 130ML FLUSH WITH MEDICATIONS. PATENT CORDIS. PT HAS ORDOÑEZ CATHETER. CONFUSED PHRASES NOTED. PT ONLY AWARE TO NAME. MITTENS IN PLACE. PT HAS ALLEVYN TO SACRAL AREA, REDNESS NOTED TO BOTTOM.
[2019-07-26 23:32] VITALS: BP 127/68
--- NOTE | 2019-07-27 02:00 | NUR ---
BEDBATH GIVEN TO PT. TOLERATED WELL. PT SCRATCHED HER NOSE BECAUSE SHE TOOK HER MITTENS OFF AND WAS ITCHING. PT ABLE TO STATE CONCERNS. AWARE OF NAME.
[2019-07-27 04:00] VITALS: BP 115/78
[2019-07-27] MEDS: INSULIN HUMULIN R 100 UNIT/ML 3ML SQ SCH ×4 (05:23→20:04)
[2019-07-27 06:12] LABS: INR 0.98 (0.85-1.15); PROTHROMBIN TIME 10.6 SEC (9.6-11.6)
[2019-07-27 06:42] LABS: CREATININE 2.3 mg/dL (0.5-1.5); POTASSIUM 3.6 mmol/L (3.5-5.1)
[2019-07-27 07:30] VITALS: BP 108/66
--- NOTE | 2019-07-27 08:05 | NUR ---
CLARIFICATION: DR. RAMIREZ WANTS [facility] OR [facility] SPOKE BRIEFLY TO LUCHO TORRES FOR [facility] ; ADVISED HRE RECD ORDER FROM [facility] FOR SOL[facility] HERE FOR 6 WEEKS ABX FOR ENDOCARDITIS. LIST STATES THAT SHE WOULD TALK TO JAMES, BECAUSE HE WANTED THE PATIENT TO GO BACK TO [place] WHERE HER PHYSICIANS WERE.. WILL ADVISED POCKET ASSEMBLER TODAY- NO REFERRAL HAS BEEN SENT YET- WAITING FOR CLARIFICATION. Addendum: 07/27/19 at 0808 by ROMEO LABOY RN Amended: Links added.
--- NOTE | 2019-07-27 09:00 | NUR ---
DYSPHAGIA RE-EVAL COMPLETED. NO S/S OF ASPIRATION. RECOMMEND THE CONTINUATION OF NG TUBE FEEDING WITH PLEASURE FEEDS OF ICE CHIPS. RECOMMENDATIONS: DYSPHAGIA THERAPY 2-4XWEEK TO INCREASE ORAL MOTOR STRENGTH AND PHARYNGEAL SWALLOW: LTG#1: Pt WILL TOLERATE LEAST RESTRICTIVE DIET TO MEET NUTRITION/HYDRATION WITH NO S/S OF ASPIRATION. LTG#2: SKILLED EDUCATION Pt/FAMILY/STAFF STG#1: Pt WILL PARTICIPATE IN LARYNGEAL ELEVATION/EXCURSION EXERCISES WITH 80% ACCURACY. STG#2: Pt WILL PARTICIPATE IN TONGUE BASE RETRACTION EXERCISES WITH 80% ACCURACY. STG#3: Pt WILL PARTICIPATE IN ORAL MOTOR EXERCISES WITH 80% ACCURACY. STG#4: Pt WILL TOLERATE THERAPEUTIC TRIALS OF PUREE WITH NO OVERT S/S OF ASPIRATION. Pt WILL TOLERATE THERAPEUTIC TRIALS OF THIN LIQUIDS WITH NO OVERT S/S OF ASPIRATION. STG#5: Pt WILL BE ABLE TO PARTICIPATE IN MBSS AFTER 2-4 WEEKS OF THERAPEUTIC INTERVENTION. STG#6: SKILLED EDUCATION Pt/FAMILY/STAFF. MEDICAL LAB SCIENTIST COORDINATED CARE AND RECOMMENDATIONS WITH NURSE KENNY. Addendum: 07/27/[address] FRYE Amended: Links added.
[2019-07-27] MEDS: FUROSEMIDE 10 MG/ML 2ML VIAL IV SCH ×2 (09:27→18:48)
[2019-07-27] MEDS: FAMOTIDINE/PF 20 MG/2 ML VIAL IV SCH ×2 (09:29→20:03)
[2019-07-27] MEDS: CEFAZOLIN SODIUM 1 GM VIAL IVP SCH ×2 (09:30→20:03)
[2019-07-27] MEDS: ASPIRIN 81MG TAB.CHEW PO SCH (09:32)
[2019-07-27] MEDS: METOPROLOL TARTRATE 25 MG TAB PO SCH ×2 (09:32→20:03)
[2019-07-27] MEDS: RIFAMPIN 300 MG CAPSULE PO SCH ×2 (09:33→20:03)
[2019-07-27] MEDS: AMIODARONE HCL 200 MG TABLET PO SCH ×2 (09:33→20:03)
[2019-07-27] MEDS: ATORVASTATIN CALCIUM 40 MG TABLET PO SCH (09:36)
[2019-07-27] MEDS: ENOXAPARIN SODIUM 30 MG/0.3 ML SQ SCH (09:36)
[2019-07-27 11:00] VITALS: BP 104/64
--- NOTE | 2019-07-27 12:30 | NUR ---
CALLED TO ASSESS PT FOR PICC LINE PLACEMENT. I HAD PREVIOUSLY ATTEMPTED PICC ON THIS PT ON 07-23-19 UNSUCCESSFULLY TO LEFT ARM. AT THAT TIME, PTS INTERNAL ANATOMY DOES NOT ALLOW FOR ADVANCEMENT OF PICC INTO SVC AFTER MULTIPLE ATTEMPTS WITH DENISE MARAVILLA RN ASSISTING WITH REPOSITIONING OF PT. ANOTHER PICC NURSE HAD ALSO UNSUCCESSFULLY ATTEMPTED PICC ON RIGHT ARM AFTER ME. THIS PT IS VERY STIFF, UNABLE TO MOVE NECK AND ARMS SIDE TO SIDE NEEDED TO MANEUVER DURING THE PLACEMENT. THEREFORE I FEEL THAT ANOTHER IV PLAN NEEDS TO BE PUT IN PLACE. ANA LILIA YEPEZ MADE AWARE AND WILL RELAY THE MESSAGE TO DR. CANO.
--- NOTE | 2019-07-27 14:36 | NUR ---
DC PLAN VISITED WITH PATIENT. PATIENT LOOKING MUCH BETTER. ABLE TO UNDERSTAND SOME SENTENCES. PER NURSE FOUND HEARING AID IN PURSE. SPOKE TO DR. BURLESON SAID OKAY TO SEND PATIENT TO LTAC IN [place]. THAT WAY PATIENT WOULD NOT BE CHARGED FOR AMBULANCE. INFO FAXED TO FACILITY. LET REP KNOW. PRESCREEN DONE AND SENT. PENDING MOT AND EMS FORMS. Addendum: 07/27/19 at 1442 by REBA PHILLIP RN CM Amended: Links added.
[2019-07-27 16:00] VITALS: BP 100/57
[2019-07-27 20:00] VITALS: BP 122/60
--- NOTE | 2019-07-27 20:00 | NUR ---
PT WAS ABLE TO TOLERATE CRUSHED MEDICATIONS WITH APPLE SAUCE. ICE CHIPS WELL. PT DID NOT COUGH. REQUESTED MORE APPLE SAUCE. PT AA02. PT IS ABLE TO ANSWER YES OR NO QUESTIONS. IF IN PAIN, STATED NO. REQUESTED FOR MOUTH TO BE MOISTENED DUE TO INCREASED DRYNESS. VASELINE APPLIED TO LIPS.
[2019-07-28] VITALS (14 sets, daily range): BP systolic 98–132; BP diastolic 55–85
[2019-07-28] MEDS: FUROSEMIDE 10 MG/ML 2ML VIAL IV SCH ×2 (06:12→22:48)
[2019-07-28] MEDS: INSULIN HUMULIN R 100 UNIT/ML 3ML SQ SCH ×4 (06:13→21:00)
[2019-07-28] MEDS ORDERED: LIDOCAINE HCL 1% MDV 50ML VIAL ONE (08:10)
--- NOTE | 2019-07-28 08:22 | NUR ---
OFF UNIT TO IR FOR DELACRUZ CATHETER PLACEMENT
[2019-07-28] MEDS: ENOXAPARIN SODIUM 30 MG/0.3 ML SQ SCH (09:00)
--- NOTE | 2019-07-28 09:25 | NUR ---
DELACRUZ CATHETER PLACEMENT RECEIVED REPORT AND PATIENT BACK FROM PROCEDURE DELACRUZ CATHETER PLACEMENT. ORDERS THAT CATHETER IS READY TO USE. POST VITAL P/B 125/81 P 83 O2 [id number]% ON ROOM AIR. SITE DRY DRESSING DRY AND INTACT WELL CONTINUE TO MONITOR
--- NOTE | 2019-07-28 09:45 | NUR ---
SWALLOWING TREATMENT COMPLETED. RECOMMEND PUREED, NECTAR THICK LIQUIDS, AND PILLS CRUSHED WITH APPLESAUCE TOLERATED. S: Pt COOPERATIVE IN BED AT THE TIME OF THE SESSION. Pt NO LONGER WITH NG TUBE. O: Pt CURRENTLY TARGETING SWALLOWING GOALS, RESULTS ARE FOLLOWS: 1. Pt PARTICIPATED IN THERAPEUTIC TRIALS OF ICE CHIPS X5 WITH NO OVERT S/S OF ASPIRATION. 2. Pt PARTICIPATED IN THERAPEUTIC TRIALS OF PUREED X3 WITH NO OVERT S/S OF ASPIRATION. 3. Pt PARTICIPATED IN THERAPEUTIC TRIALS OF ADVANCED TEXTURE OF THIN LIQUIDS VIA CUP WITH +S/S OF ASPIRATION OF DELAYED COUGH RESPONSE. A: FULL DECATOR OPERATOR EDUCATED Pt OF RISKS AND CONSEQUENCES OF ASPIRATION. P: RECOMMEND PUREED SOLIDS, NECTAR THICK LIQUIDS, PILLS CRUSHED WITH APPLESAUCE TOLERATED. FULL DECATOR OPERATOR COORDINATED CARE WITH NURSE DAVEY. FULL DECATOR OPERATOR WILL CONTINUE TO FOLLOW Pt. Addendum: 07/28/[address] FRYE Amended: Links added.
[2019-07-28] MEDS: ATORVASTATIN CALCIUM 40 MG TABLET PO SCH (10:30)
[2019-07-28] MEDS: ASPIRIN 81MG TAB.CHEW PO SCH (10:30)
[2019-07-28] MEDS: AMIODARONE HCL 200 MG TABLET PO SCH ×2 (10:30→22:47)
[2019-07-28] MEDS: METOPROLOL TARTRATE 25 MG TAB PO SCH ×2 (10:30→22:48)
[2019-07-28] MEDS: FAMOTIDINE/PF 20 MG/2 ML VIAL IV SCH ×2 (10:33→22:53)
[2019-07-28] MEDS: CEFAZOLIN SODIUM 1 GM VIAL IVP SCH ×2 (10:33→22:47)
[2019-07-28] MEDS: RIFAMPIN 300 MG CAPSULE PO SCH ×2 (10:44→22:47)
--- NOTE | 2019-07-28 14:00 | NUR ---
DR RECINOS ROUNDED ON PATIENT
--- NOTE | 2019-07-28 14:58 | NUR ---
RD UPDATE NOTIFICATION FOR CALORIE COUNT RECEIVED. 1 -DAY CALORIE COUNT INITIATED FOR PT ON REGULAR, PUREE, HTL DIET ORDER. RD TO MONITOR AND TO UPDATE.
--- NOTE | 2019-07-28 15:54 | NUR ---
D/C CORDIS ORDERERS RECEIVED TO DISCONTINUE CORDIS, SUTURES REMOVE AND CORDIS REMOVEED WITH TIP INTACT , PRESSURE HELD TO SITE THEN PRESSURE DRESSING APPLIED
[2019-07-29] VITALS (8 sets, daily range): BP systolic 78–126; BP diastolic 43–74
[2019-07-29] MEDS: INSULIN HUMULIN R 100 UNIT/ML 3ML SQ SCH ×4 (06:50→21:00)
[2019-07-29] MEDS: FAMOTIDINE/PF 20 MG/2 ML VIAL IV SCH ×2 (09:10→21:14)
[2019-07-29] MEDS: AMIODARONE HCL 200 MG TABLET PO SCH ×2 (09:10→21:14)
[2019-07-29] MEDS: ATORVASTATIN CALCIUM 40 MG TABLET PO SCH (09:10)
[2019-07-29] MEDS: CEFAZOLIN SODIUM 1 GM VIAL IVP SCH ×2 (09:10→21:14)
[2019-07-29] MEDS: RIFAMPIN 300 MG CAPSULE PO SCH ×2 (09:11→21:18)
[2019-07-29] MEDS: ASPIRIN 81MG TAB.CHEW PO SCH (09:11)
[2019-07-29] MEDS: METOPROLOL TARTRATE 25 MG TAB PO SCH ×2 (09:11→21:14)
[2019-07-29] MEDS: ENOXAPARIN SODIUM 30 MG/0.3 ML SQ SCH (09:11)
[2019-07-29] MEDS: FUROSEMIDE 10 MG/ML 2ML VIAL IV SCH ×2 (09:13→19:30)
--- NOTE | 2019-07-29 10:45 | NUR ---
SWALLOWING TREATMENT COMPLETED S: Pt REPOSITION IN BED BEFORE THERAPEUTIC P.O. TRIALS. Pt COOPERATIVE IN BED AT THE TIME OF THE SESSION. O: Pt CURRENTLY TARGETING SWALLOWING GOALS, RESULTS ARE FOLLOWS: 1. Pt PARTICIPATED IN LARYNGEAL ELEVATION/EXCURSION EXERCISES WITH 70% ACCURACY. 2. Pt PARTICIPATED IN TONGUE BASE RETRACTION EXERCISES WITH 0% ACCURACY. 3. Pt PARTICIPATED IN ORAL MOTOR EXERCISES WITH 80% ACCURACY. 4. Pt PARTICIPATED IN THERAPEUTIC TRIALS OF ADVANCED TEXTURE OF THIN LIQUIDS VIA SPOON X3 WITH NO S/S OF ASPIRATION. 5. Pt TOLERATED NECTAR THICK LIQUIDS VIA CUP (SMALL SIPS) IN 5 OUT OF 8 TRIALS WITH NO OVERT S/S OF ASPIRATION. (ON ONE TRIAL OF NTL Pt PRODUCED A SLIGHT IMMEDIATE COUGH AND ON THE OTHER TRIAL OF NTL PATIENT PRODUCED A THROAT CLEAR.) A: FEATHERER EDUCATED Pt OF RISKS AND CONSEQUENCES OF ASPIRATION. Pt WAS REMINDED OF STRATEGIES TO TAKE SMALL SIPS. P: RECOMMEND THE CONTINUATION OF PUREED SOLIDS, NECTAR THICK LIQUIDS, PILLS CRUSHED WITH APPLESAUCE TOLERATED. FEATHERER COORDINATED WITH NURSE NGUYỄN. FEATHERER WILL CONTINUE TO FOLLOW Pt. Addendum: 07/29/[address] MELVA Amended: Links added.
--- NOTE | 2019-07-29 14:34 | NUR ---
DC PLAN PATIENT HAD TRANSFERRED FROM OTHER HOSPITAL. NOT ABLE TO COMMUNICATE. SPOKE TO SISTER. PER SISTER PATIENT LIVES ALONE. WAS INDEPENDENT ABLE TO PERFORM ADL'S. DID NOT HAVE ANY EQUIPMENT AND HAD A FRIEND THAT HELPS HER. Addendum: 07/29/19 at 1436 by REBA PHILLIP RN CM Amended: Links added.
--- NOTE | 2019-07-29 14:49 | NUR ---
RD FOLLOW UP Pt tolerating Pureed, HTL diet order. Improving appetite. Pt with Calorie Count in place (05/10 update). Pt ate Breakfast 100%, 25% at lunch, per Pt Food Services staff. No reports of GI distress. No new lab draw. Recommend pudding to be offered between meals. RD to continue to monitor. Please notify as concerns arise. Addendum: 07/29/19 at [address] Amended: Links added.
--- NOTE | 2019-07-29 17:00 | NUR ---
sosa catheter discontinued; on q pump catheter/tubing removed; area cleansed with ChloraPrep and dressing to avr site also cleaned and changed
--- NOTE | 2019-07-29 17:48 | NUR ---
CM Note: [facility] pending P2P CM spoke to Katelynn mensah/Derek. Pending P2P at this time. Pt pending approval. EMS arranged and faxed for today, primary nurse to call [facility] once pt ready to DC. MOT pending to be completed once approved,flagged in chart, Katelynn aware to assist nurse completing MOT if approval received later today. Primary nurse aware. CM to cont to follow up.
[2019-07-30 03:53] VITALS: BP 100/65
[2019-07-30] MEDS: FUROSEMIDE 10 MG/ML 2ML VIAL IV SCH ×2 (06:42→16:58)
[2019-07-30] MEDS: INSULIN HUMULIN R 100 UNIT/ML 3ML SQ SCH ×4 (07:30→20:43)
[2019-07-30 08:15] VITALS: BP 142/72
[2019-07-30] MEDS: CEFAZOLIN SODIUM 1 GM VIAL IVP SCH ×2 (08:55→22:09)
[2019-07-30] MEDS: ENOXAPARIN SODIUM 30 MG/0.3 ML SQ SCH (08:57)
[2019-07-30] MEDS: ATORVASTATIN CALCIUM 40 MG TABLET PO SCH (08:58)
[2019-07-30] MEDS: RIFAMPIN 300 MG CAPSULE PO SCH ×2 (08:58→22:09)
[2019-07-30] MEDS: METOPROLOL TARTRATE 25 MG TAB PO SCH ×2 (09:00→22:10)
[2019-07-30] MEDS: AMIODARONE HCL 200 MG TABLET PO SCH ×2 (09:00→22:10)
[2019-07-30] MEDS: ASPIRIN 81MG TAB.CHEW PO SCH (09:00)
[2019-07-30] MEDS: FAMOTIDINE/PF 20 MG/2 ML VIAL IV SCH ×2 (09:04→22:10)
--- NOTE | 2019-07-30 09:35 | NUR ---
SWALLOWING TREATMENT COMPLETED. S: Pt WITH DECREASED ATTENTION AND VERY LETHARGIC. SHE SAID NOT TODAY. PER NURSE, Pt WILL BE PLACED BACK ON NG TUBE FEEDINGS DUE TO POOR P.O. INTAKE. O: Pt CURRENTLY TARGETING SWALLOWING GOALS, RESULTS ARE FOLLOWS: 1. Pt PARTICIPATED IN LARYNGEAL ELEVATION/EXCURSION EXERCISES WITH 0% ACCURACY GIVEN MAX CUES. 2. Pt PARTICIPATED IN TONGUE BASE RETRACTION EXERCISES WITH 10% ACCURACY GIVEN VISUAL AND VERBAL CUES. 3. Pt PARTICIPATED IN ORAL MOTOR EXERCISES WITH 80% ACCURACY. 4. SKILLED EDUCATION Pt/STAFF: COMPLETED. A: PRINTED CIRCUIT BOARD PANELS PLATER EDUCATED Pt OF RISKS AND CONSEQUENCES OF ASPIRATION. Pt WAS REMINDED OF STRATEGIES TO TAKE SMALL SIPS. P: RECOMMEND PLEASURE FEEDS OF PUREED, HONEY THICK LIQUIDS, PILLS CRUSHED WITH APPLESAUCE TOLERATED SUPPLEMENTED WITH NG TUBE FEEDING. PRINTED CIRCUIT BOARD PANELS PLATER COORDINATED CARE AND RECOMMENDATIONS WITH NURSE CASTELLON. PRINTED CIRCUIT BOARD PANELS PLATER WILL CONTINUE TO FOLLOW Pt. Addendum: 07/30/[address] FRYE Amended: Links added.
[2019-07-30 11:25] VITALS: BP 99/63
[2019-07-30 16:32] VITALS: BP 94/59
[2019-07-30 20:11] VITALS: BP 115/74
--- NOTE | 2019-07-30 22:00 | NUR ---
PT ABLE TO TOLERATE CRUSHED MEDS WITH PUDDING VERY WELL. DRINKING HONEY THICK WATER WELL. NO COUGHING NOTED. PT CONTINUES ON TUBE FEEDINGS. UP TO 30ML/HR.
[2019-07-30 23:54] VITALS: BP 98/65
--- NOTE | 2019-07-31 01:00 | NUR ---
PT GIVEN BEDBATH. REDNESS NOTED TO INNER THIGHS AND BUTTOCKS AREA. SORES NOTED TO MIDDLE BUTTOCKS AREA. APPLIED ALLEVYN. BARRIER CREAM TO INNER THIGHS. AND NOTED WHITE VAGINAL DISCHARGE WHEN DOING CHRISTIAN AREA.
[2019-07-31 04:07] VITALS: BP 134/71
[2019-07-31 05:12] LABS: BASOPHILS % (AUTO) 0.3 % (0.0-5.0); EOSINOPHILS % (AUTO) 14.5 % (0.0-8.0); HEMATOCRIT 27.6 % (36-48); LYMPHOCYTES % (AUTO) 20.9 % (21.0-51.0); MEAN CORPUSCULAR HEMOGLOBIN 31.9 pg (27.0-33.0); MEAN CORPUSCULAR HGB CONC 29.7 g/dL (32.0-36.0); MEAN CORPUSCULAR VOLUME 107.4 fL (79-99); MONOCYTES % (AUTO) 5.9 % (3.0-13.0); PLATELET COUNT (AUTO) 224 K/uL (130-400); RED BLOOD CELL COUNT(AUTO) 2.57 MIL/uL (4.00-5.50); RED CELL DISTRIBUTION WIDTH 19.9 % (11.0-15.5); WHITE BLOOD COUNT (AUTO) 12.5 K/uL (4.8-10.8)
[2019-07-31] MEDS: INSULIN HUMULIN R 100 UNIT/ML 3ML SQ SCH ×4 (05:32→21:00)
[2019-07-31 05:40] LABS: CREATININE 2.3 mg/dL (0.5-1.5)
[2019-07-31] MEDS: FUROSEMIDE 10 MG/ML 2ML VIAL IV SCH ×2 (05:46→21:17)
[2019-07-31 06:27] LABS: POTASSIUM 2.7 mmol/L (3.5-5.1)
[2019-07-31] MEDS: POTASSIUM CHLORIDE 20MEQ/100ML 100 ML IV PRN ×2 (06:43→10:04)
[2019-07-31 07:33] LABS: MEAN CORPUSCULAR HEMOGLOBIN 32.1 pg (27.0-33.0); MEAN CORPUSCULAR VOLUME 106.9 fL (79-99); PLATELET COUNT (AUTO) 226 K/uL (130-400); WHITE BLOOD COUNT (AUTO) 13.9 K/uL (4.8-10.8)
[2019-07-31 08:00] VITALS: BP 113/68
[2019-07-31 08:01] LABS: CREATININE 2.3 mg/dL (0.5-1.5); POTASSIUM 3.1 mmol/L (3.5-5.1)
--- NOTE | 2019-07-31 08:30 | NUR ---
DR. RECINOS IS MAKING HIS ROUNDS. INFORMED MD OF CRITICAL VALUES RESULTED FROM TODAY'S BMP. MD ORDERED TO INCREASE H2O FLUSHES TO 200ML EVERY 4 HOURS.
[2019-07-31] MEDS: METOPROLOL TARTRATE 25 MG TAB PO SCH ×2 (09:23→21:18)
[2019-07-31] MEDS: ASPIRIN 81MG TAB.CHEW PO SCH (09:23)
[2019-07-31] MEDS: AMIODARONE HCL 200 MG TABLET PO SCH ×2 (09:23→21:18)
[2019-07-31] MEDS: ATORVASTATIN CALCIUM 40 MG TABLET PO SCH (09:23)
[2019-07-31] MEDS: RIFAMPIN 300 MG CAPSULE PO SCH ×2 (09:23→21:18)
[2019-07-31] MEDS: CEFAZOLIN SODIUM 1 GM VIAL IVP SCH ×2 (09:23→21:17)
[2019-07-31] MEDS: ENOXAPARIN SODIUM 30 MG/0.3 ML SQ SCH (09:24)
[2019-07-31] MEDS: FAMOTIDINE/PF 20 MG/2 ML VIAL IV SCH ×2 (09:24→21:17)
[2019-07-31 09:40] LABS: EOSINOPHILS % (MANUAL) 8 % (1-6); LYMPHOCYTES % (MANUAL) 23 % (22-44); MONOCYTES % (MANUAL) 3 % (2-9); SEGMENTED NEUTROPHILS % 66 % (40-70)
[2019-07-31 09:41] LABS: MAN.DIFF COMMENT-IMPRESSION MANUAL DIFFERENTIAL; PLATELET MORPHOLOGY COMMENT ADEQUATE
[2019-07-31 11:19] VITALS: BP 121/74
[2019-07-31 16:00] VITALS: BP 112/67
[2019-07-31 19:22] VITALS: BP 120/72
[2019-07-31] MEDS: TRAMADOL HCL 50 MG TABLET PO PRN (21:25)
[2019-07-31 23:54] VITALS: BP_SYST 140
--- NOTE | 2019-08-01 01:00 | NUR ---
200ML FLUSH VIA DOBHOFF ADMINISTERED. PT STABLE. NO DISTRESS NOTED. Q4 TO DECREASE SODIUM LEVELS.
[2019-08-01 04:14] VITALS: BP 142/80
[2019-08-01 04:46] LABS: BASOPHILS % (AUTO) 0.3 % (0.0-5.0); EOSINOPHILS % (AUTO) 13.8 % (0.0-8.0); HEMATOCRIT 27.1 % (36-48); LYMPHOCYTES % (AUTO) 19.9 % (21.0-51.0); MEAN CORPUSCULAR HEMOGLOBIN 31.5 pg (27.0-33.0); MEAN CORPUSCULAR HGB CONC 29.5 g/dL (32.0-36.0); MEAN CORPUSCULAR VOLUME 106.7 fL (79-99); MONOCYTES % (AUTO) 6.2 % (3.0-13.0); NEUTROPHILS % (AUTO) 59.3 % (40.0-77.0); PLATELET COUNT (AUTO) 241 K/uL (130-400); RED BLOOD CELL COUNT(AUTO) 2.54 MIL/uL (4.00-5.50); RED CELL DISTRIBUTION WIDTH 19.9 % (11.0-15.5); WHITE BLOOD COUNT (AUTO) 12.7 K/uL (4.8-10.8)
[2019-08-01 05:08] LABS: CREATININE 2.1 mg/dL (0.5-1.5); POTASSIUM 3.2 mmol/L (3.5-5.1)
[2019-08-01] MEDS: FUROSEMIDE 10 MG/ML 2ML VIAL IV SCH (06:02)
[2019-08-01] MEDS: INSULIN HUMULIN R 100 UNIT/ML 3ML SQ SCH ×4 (06:18→21:00)
[2019-08-01 08:00] VITALS: BP 124/87
[2019-08-01] MEDS: ATORVASTATIN CALCIUM 40 MG TABLET PO SCH (09:40)
[2019-08-01] MEDS: AMIODARONE HCL 200 MG TABLET PO SCH ×2 (09:40→22:17)
[2019-08-01] MEDS: RIFAMPIN 300 MG CAPSULE PO SCH ×2 (09:40→22:17)
[2019-08-01] MEDS: FAMOTIDINE/PF 20 MG/2 ML VIAL IV SCH ×2 (09:40→22:17)
[2019-08-01] MEDS: CEFAZOLIN SODIUM 1 GM VIAL IVP SCH (09:40)
[2019-08-01] MEDS: ASPIRIN 81MG TAB.CHEW PO SCH (09:41)
[2019-08-01] MEDS: METOPROLOL TARTRATE 25 MG TAB PO SCH ×2 (09:41→22:17)
[2019-08-01] MEDS: ENOXAPARIN SODIUM 30 MG/0.3 ML SQ SCH (09:53)
[2019-08-01] MEDS: POTASSIUM CHLORIDE 10% ELIXIR 20 MEQ/15 ML UDCUP NG SCH ×2 (09:54→22:17)
[2019-08-01 12:00] VITALS: BP 120/71
[2019-08-01 16:00] VITALS: BP 140/75
[2019-08-01 19:56] VITALS: BP 128/95
[2019-08-01] MEDS: TRAMADOL HCL 50 MG TABLET PO PRN (22:30)
[2019-08-01 23:48] VITALS: BP 110/63
--- NOTE | 2019-08-02 01:20 | NUR ---
BEDBATH GIVEN AT THIS TIME. PT HAD BM. 200ML FLUSH GIVEN AFTER BATH, NO RESIDUAL. PT VOIDING WELL. ATTEMPTING TO LOWER SODIUM LEVEL.
[2019-08-02 04:30] VITALS: BP 115/74
[2019-08-02 05:17] LABS: CREATININE 1.9 mg/dL (0.5-1.5); MAGNESIUM 2.7 mg/dL (1.80-2.40); POTASSIUM 3.6 mmol/L (3.5-5.1)
[2019-08-02] MEDS: INSULIN HUMULIN R 100 UNIT/ML 3ML SQ SCH ×4 (06:36→20:18)
[2019-08-02 07:46] VITALS: BP 122/43
[2019-08-02] MEDS: AMIODARONE HCL 200 MG TABLET PO SCH ×2 (09:53→20:18)
[2019-08-02] MEDS: ASPIRIN 81MG TAB.CHEW PO SCH (09:53)
[2019-08-02] MEDS: ENOXAPARIN SODIUM 30 MG/0.3 ML SQ SCH (09:53)
[2019-08-02] MEDS: ATORVASTATIN CALCIUM 40 MG TABLET PO SCH (09:53)
[2019-08-02] MEDS: RIFAMPIN 300 MG CAPSULE PO SCH (09:53)
[2019-08-02] MEDS: METOPROLOL TARTRATE 25 MG TAB PO SCH ×2 (09:53→20:18)
[2019-08-02] MEDS: FUROSEMIDE 20 MG TABLET NG SCH (09:53)
[2019-08-02] MEDS: FAMOTIDINE/PF 20 MG/2 ML VIAL IV SCH ×2 (09:56→20:15)
--- NOTE | 2019-08-02 10:30 | NUR ---
SWALLOWING TREATMENT ATTEMPTED. Pt WITH DECREASED ATTENTION AND VERY LETHARGIC. Pt WAS MUMBLING AND PRODUCING INCOMPREHENSIBLE SOUNDS. Pt CURRENTLY ON NG TUBE FEEDING. VERIFICATION ENGINEER PROVIDED ORAL CARE BEFORE STARTING ORAL MOTOR EXERCISES. Pt GIVEN MAX CUES TO PARTICIPATE WITH ORAL CARE. Pt NOT FOLLOWING BASIC ONE STEP COMMANDS TO PARTICIPATE WITH SWALLOWING GOALS AT THIS TIME. VERIFICATION ENGINEER COORDINATED CARE AND RECOMMENDATIONS WITH NURSE. VERIFICATION ENGINEER WILL CONTINUE TO FOLLOW PATIENT. Addendum: 08/02/[address] FRYE Amended: Links added.
[2019-08-02 11:15] VITALS: BP 103/65
[2019-08-02] MEDS: TRAMADOL HCL 50 MG TABLET PO PRN (15:37)
--- NOTE | 2019-08-02 16:07 | NUR ---
RD UPDATE Pt with Dehydration. Monitored labs: Na 160, Cl 122, BUN 54, Cr 1.9, GFR 27, BG 115, Ca 7.8, Mg 2.7. Recommend to increase Free Water Flushes to 300mL every 6 hours, as medically feasible. RD to monitor I/O's, nutritional labs, TF tolerance. Please notify as additional nutrition concerns arise. Thank you.
[2019-08-02 16:30] VITALS: BP 114/53
--- NOTE | 2019-08-02 19:00 | NUR ---
ROUNDS PATIENT AWAKE AND ALERT. EXTRA TIME NEEDED TO VOICE NEEDS. UNABLE TO AT THIS TIME. GARBLED SPEECH NOTED AT THIS TIME. NO COMPLAINTS OF PAIN VOICED. NO FACIAL GRIMACING. RESP EVEN AND UNLABORED. NO SOB NOTED. ON ROOM AIR. VITALS STABLE. AFEBRILE. TOLERATING JEVITY 1.5 SWETA AT 55ML/HR AT THIS TIME VIA 12FR DOBBHOFF. NO NAUSEA OR VOMITING. NO RESIDUALS NOTED. ORAL CARE GIVEN. TOTAL CARE RENDERED Q2H AND PRN. LAST BM TODAY. HOB ELEVATED. CALL LIGHT WITHIN REACH. WILL CONTINUE TO BE OBSERVED. Addendum: 08/02/19 at 5518 by SUSY RAYO RN RN Amended: Links added.
[2019-08-02 20:08] VITALS: BP 123/67
[2019-08-02 23:28] VITALS: BP 101/55
[2019-08-03 03:33] VITALS: BP 124/69
[2019-08-03] MEDS: INSULIN HUMULIN R 100 UNIT/ML 3ML SQ SCH ×4 (06:30→20:26)
[2019-08-03] MEDS: METOPROLOL TARTRATE 25 MG TAB PO SCH ×2 (07:48→21:22)
[2019-08-03] MEDS: ASPIRIN 81MG TAB.CHEW PO SCH (07:48)
[2019-08-03] MEDS: AMIODARONE HCL 200 MG TABLET PO SCH ×2 (07:48→21:22)
[2019-08-03] MEDS: ATORVASTATIN CALCIUM 40 MG TABLET PO SCH (07:48)
[2019-08-03] MEDS: TRAMADOL HCL 50 MG TABLET PO PRN ×3 (07:49→21:23)
[2019-08-03] MEDS: FAMOTIDINE/PF 20 MG/2 ML VIAL IV SCH ×2 (07:49→21:22)
[2019-08-03] MEDS: FUROSEMIDE 20 MG TABLET NG SCH (07:49)
[2019-08-03] MEDS: ENOXAPARIN SODIUM 30 MG/0.3 ML SQ SCH (07:50)
[2019-08-03 07:55] VITALS: BP 110/58
[2019-08-03 08:17] LABS: CREATININE 1.8 mg/dL (0.5-1.5); POTASSIUM 3.7 mmol/L (3.5-5.1)
[2019-08-03 11:49] VITALS: BP 106/59
--- NOTE | 2019-08-03 12:20 | NUR ---
CM Note: Derek denied, pending approval for [facility] CM spoke to Katelynn mensah/Derek, pt has denial for [facility]. Pt and sister updated. Agreeable to follow through w/SNF as per Dr Velasco recommendations. ANA M signed. Faxed order, clinicals, PASRR, PT, Covid Post Acute Care Assessments to [facility], confirmation received. Spoke to Anabel will work on approval. Aware pt pending peg placement and feeding recommendations after, will fax info once available. EMS arranged and faxed for tomorrow, primary nurse to call [facility] once pt ready to DC. Pt pending approval at this time. Primary nurse aware. CM to cont to follow up.
--- NOTE | 2019-08-03 12:50 | NUR ---
SWALLOW TREATMENT ATTEMPTED. REACH TRUCK OPERATOR ATTEMPTED THREE TIMES THIS DAY TO PROVIDE SWALLOWING TREATMENTS. Pt VERY LETHARGIC AND UNCOOPERATIVE. Pt'S EYES REMAIN CLOSED WHILE MUMBLING PHRASES. Pt UNABLE TO FOLLOW BASIC COMMANDS TO PROCEED WITH ORAL MOTOR, TONGUE BASE STRENGTHENING, AND LARYNGEAL ELEVATION/EXCURSION EXERCISES AT THIS TIME. Pt DID NOT RESPOND TO ORAL STIMULATION AND/OR ICE CHIP TRIALS. REACH TRUCK OPERATOR WILL CONTINUE TO FOLLOW Pt TOMORROW. Addendum: 08/03/[address] FRYE Amended: Links added.
[2019-08-03] MEDS: ACETAMINOPHEN 325 MG TAB PO PRN (12:59)
--- NOTE | 2019-08-03 14:36 | NUR ---
RD FOLLOW UP Pt tolerating Jevity 1.5, continuous tube feeding at 55mls/hr. Pt with inaccurate weight entered; RN notified. Pt continues with dehydration (Na 163, Cl 123). Recommend continue tube feeding. RD to continue to monitor nutritional labs, tube feeding tolerance. Please notify as additional nutrition concerns arise. Thank you. Addendum: 08/03/19 at [address] Amended: Links added.
[2019-08-03 16:19] VITALS: BP 122/64
--- NOTE | 2019-08-03 16:48 | NUR ---
CM Note: [place] not in network w/pt insurance, [facility] pending approval CM spoke to Anabel w/[facility] [place] NR not in network w/insurance, pt and sister agreeable for [place] instead. Per Anabel will forward to [facility]. Pending approval at this time. Primary nurse aware. CM to cont to follow up.
[2019-08-03] MEDS: CEFAZOLIN SODIUM 1 GM VIAL IVP SCH (17:00)
--- NOTE | 2019-08-03 17:34 | NUR ---
RECEIVED CALL FROM PT.'S SISTER, NOAH MURGUIA, QUESTIONS ANSWERED AND UPDATED ON STATUS; VERBALIZED UNDERSTANDING.
[2019-08-03 19:58] VITALS: BP 138/58
[2019-08-03] MEDS: RIFAMPIN 300 MG CAPSULE PO SCH (21:22)
[2019-08-03 23:40] VITALS: BP 120/73
[2019-08-04] MEDS: CEFAZOLIN SODIUM 1 GM VIAL IVP SCH ×3 (01:20→17:20)
[2019-08-04 03:50] VITALS: BP 114/67
[2019-08-04] MEDS: INSULIN HUMULIN R 100 UNIT/ML 3ML SQ SCH ×4 (06:51→21:00)
[2019-08-04 07:30] VITALS: BP 106/75
[2019-08-04] MEDS: FAMOTIDINE/PF 20 MG/2 ML VIAL IV SCH ×2 (09:51→21:11)
[2019-08-04] MEDS: RIFAMPIN 300 MG CAPSULE PO SCH ×2 (09:53→21:12)
[2019-08-04] MEDS: METOPROLOL TARTRATE 25 MG TAB PO SCH ×2 (09:53→21:11)
[2019-08-04] MEDS: ASPIRIN 81MG TAB.CHEW PO SCH (09:53)
[2019-08-04] MEDS: ENOXAPARIN SODIUM 30 MG/0.3 ML SQ SCH (09:53)
[2019-08-04] MEDS: FUROSEMIDE 20 MG TABLET NG SCH (09:53)
[2019-08-04] MEDS: AMIODARONE HCL 200 MG TABLET PO SCH ×2 (09:53→21:12)
[2019-08-04] MEDS: ATORVASTATIN CALCIUM 40 MG TABLET PO SCH (09:53)
[2019-08-04 11:00] VITALS: BP 94/50
[2019-08-04 16:00] VITALS: BP 109/74
[2019-08-04 19:56] VITALS: BP 108/74
[2019-08-04] MEDS: TRAMADOL HCL 50 MG TABLET PO PRN (21:12)
[2019-08-04 23:36] VITALS: BP 103/56
[2019-08-05] MEDS: CEFAZOLIN SODIUM 1 GM VIAL IVP SCH ×3 (01:00→16:39)
[2019-08-05 04:01] VITALS: BP 110/61
[2019-08-05] MEDS: INSULIN HUMULIN R 100 UNIT/ML 3ML SQ SCH ×3 (06:39→16:30)
[2019-08-05 07:30] VITALS: BP 123/83
--- NOTE | 2019-08-05 09:20 | NUR ---
SWALLOWING TREATMENT COMPLETED S: Pt REMAINED WITH EYES CLOSED WHILE MUMBLING WORDS & UNCOMPREHENSIBLE SOUNDS, SLEEPY, AND NOT RESPONDING TO QUESTIONS. O: Pt UNABLE TO FOLLOW BASIC/SIMPLE COMMANDS TO PROCEED WITH SWALLOWING GOALS. CONSULTANTS INTERN ATTEMPTED ORAL STIMULATION EXERCISES AND THERMAL TACTILE STIMULATION GIVEN MAX CUES WITH NO SUCCESS. A: Pt CONFUSED AND UNABLE TO COMPREHEND RISKS AND CONSEQUENCES OF ASPIRATION AT THIS TIME. Pt AT HIGH RISK FOR ASPIRATION IN CURRENT STATE. p: Pt CURRENTLY WITH NG TUBE. AT THIS TIME, Pt WILL BENEFIT FROM SKILLED NURSING ALTERNATE MEANS OF NUTRITION/HYDRATION Pt IS NOT READY FOR P.O. INTAKE TO MEET ALL NUTRITIONAL/HYDRATION NEEDS. Pt WILL ALSO BENEFIT FROM SPEECH THERAPY TARGETING SWALLOWING GOALS FOR THE LENGTH OF TIME IN THE HOSPITAL. CONSULTANTS INTERN COORDINATED CARE AND RECOMMENDATION WITH NURSE RAVINDER. Addendum: 08/05/[address] [facility] FRYE Amended: Links added.
[2019-08-05 09:33] LABS: CREATININE 2.1 mg/dL (0.5-1.5); POTASSIUM 4.2 mmol/L (3.5-5.1)
[2019-08-05] MEDS: RIFAMPIN 300 MG CAPSULE PO SCH (10:05)
[2019-08-05] MEDS: AMIODARONE HCL 200 MG TABLET PO SCH (10:05)
[2019-08-05] MEDS: ATORVASTATIN CALCIUM 40 MG TABLET PO SCH (10:05)
[2019-08-05] MEDS: FUROSEMIDE 20 MG TABLET NG SCH (10:05)
[2019-08-05] MEDS: ASPIRIN 81MG TAB.CHEW PO SCH (10:05)
[2019-08-05] MEDS: METOPROLOL TARTRATE 25 MG TAB PO SCH (10:05)
[2019-08-05] MEDS: ENOXAPARIN SODIUM 30 MG/0.3 ML SQ SCH (10:05)
[2019-08-05] MEDS: FAMOTIDINE/PF 20 MG/2 ML VIAL IV SCH (10:06)
--- NOTE | 2019-08-05 10:49 | NUR ---
RD UPDATE RD notified, Pt sodium remains high. RD recommend change tube feeding formula to Suplena with lower electrolytes. Recommend to monitor potassium and magnesium, supplement as medically feasible. Tube Feeding: Initiate Suplena @25mls/hr. Advance as tolerated by 5mL every 5 hours until goal reached. Goal: 40mls/hr (1773 kcal, 43gm Protein). Flushes to be adjusted as medically feasible to 145ml every 4 hours. Recommend to monitor renal function Recommend monitor potassium, magnesium. RD to follow up.
[2019-08-05 11:00] VITALS: BP 120/83
--- NOTE | 2019-08-05 11:38 | NUR ---
CM Note: HNR approval CM spoke to Anabel w/HNR, pt has approval. Pt currently pending peg placement, MD wants NA to be more stable. EMS filled out, pending to be faxed w/current date. Primary nurse aware. CM to cont to follow up.
[2019-08-05 16:00] VITALS: BP 124/80
== END 2019-08-05 19:20 | DRG 853 ==
LOC: 2DH 17:20 → 2AH 17:25 → 2CV 07-19 07:09 → PAH.CVR 07-19 07:58 → DAHIP 07-21 06:15 → 4CH 07-25 17:13
PROVIDERS: ADMIT Thoracic Surgery (Cardiothoracic Vascular Surgery); ATTEND Thoracic Surgery (Cardiothoracic Vascular Surgery)
PROC: 3E080GC Introduction of Other Therapeutic Substance into Heart, Open Approach (ICD-10-PCS; 2019-07-19)
PROC: 02RG08Z Replacement of Mitral Valve with Zooplastic Tissue, Open Approach (ICD-10-PCS; principal; 2019-07-19 09:32)
PROC: 5A1221Z Performance of Cardiac Output, Continuous (ICD-10-PCS; 2019-07-19 09:32)
PROC: 0DH67UZ Insertion of Feeding Device into Stomach, Via Natural or Artificial Opening (ICD-10-PCS; 2019-07-22)
PROC: 30233R1 Transfusion of Nonautologous Platelets into Peripheral Vein, Percutaneous Approach (ICD-10-PCS; 2019-07-23)
PROC: 0JH63XZ Insertion of Tunneled Vascular Access Device into Chest Subcutaneous Tissue and Fascia, Percutaneous Approach (ICD-10-PCS; 2019-07-23)
PROC: 05HY33Z Insertion of Infusion Device into Upper Vein, Percutaneous Approach (ICD-10-PCS; 2019-07-23)
DX: A41.01 Sepsis due to Methicillin susceptible Staphylococcus aureus (principal); I33.0 Acute and subacute infective endocarditis; J96.91 Respiratory failure, unspecified with hypoxia; I63.40 Cerebral infarction due to embolism of unspecified cerebral artery; G93.40 Encephalopathy, unspecified; E87.0 Hyperosmolality and hypernatremia; M46.26 Osteomyelitis of vertebra, lumbar region; I76 Septic arterial embolism; E87.1 Hypo-osmolality and hyponatremia; M46.24 Osteomyelitis of vertebra, thoracic region; N17.9 Acute kidney failure, unspecified; E87.70 Fluid overload, unspecified; I05.9 Rheumatic mitral valve disease, unspecified; E11.69 Type 2 diabetes mellitus with other specified complication; E66.01 Morbid (severe) obesity due to excess calories; M46.49 Discitis, unspecified, multiple sites in spine; D64.9 Anemia, unspecified; E78.00 Pure hypercholesterolemia, unspecified; E86.0 Dehydration; E87.6 Hypokalemia; I10 Essential (primary) hypertension; I48.91 Unspecified atrial fibrillation; R13.12 Dysphagia, oropharyngeal phase; R56.9 Unspecified convulsions; Z68.35 Body mass index [BMI] 35.0-35.9, adult; Z88.0 Allergy status to penicillin; Z88.2 Allergy status to sulfonamides; Z88.8 Allergy status to other drugs, medicaments and biological substances; Z74.01 Bed confinement status; Z79.2 Long term (current) use of antibiotics; Z79.82 Long term (current) use of aspirin; Z79.899 Other long term (current) drug therapy; Z86.79 Personal history of other diseases of the circulatory system; Z86.73 Personal history of transient ischemic attack (TIA), and cerebral infarction without residual deficits
CPT/HCPCS: 36415; 36430; 36558; 70450; 71045; 74018; 77001; 80048; 80053; 80061; 82330; 82435; 82803; 82947; 82948; 83036; 83605; 83735; 83880; 84100; 84132; 84295; 85018; 85025; 85027; 85347; 85610; 85730; 86850; 86900; 86901; 86922; 87040; 88305; 88311; 92526; 92610; 93005; 93313; 93318; 93880; 94002; 94003; 94150; 97039; A4357; A6250; A7048; C1751; C1894; G0378; J0171; J0282; J0610; J0690; J0696; J1644; J1650; J1815; J1940; J2001; J2150; J2250; J2370; J2704; J2720; J2795; J3010; J3370; J3475; J3480; J3490; J7030; J7040; J7050; J7060; P9016; P9045; P9047

== ENCOUNTER 2019-08-06 18:34 | Inpatient (IN) | payer MEDICARE ==
[~2019-08-06] VITALS: Ht 177.8 cm; Wt 104.8 kg
[~2019-08-06 18:34] MED LIST changes: -ALBUMIN (HUMAN) 25% 50 ML IV ONE; -AMINOCAPROIC ACID 250 MG/ML 20 ML VIAL IV ONE; -CALCIUM CHLORIDE 100 MG/ML 10 ML SYG IVP ONE; +GABA-531 PO; -HEPARIN SODIUM 1000UNIT/ML 10ML VIAL IV ONE; +LISI-613 PO; -MAGNESIUM SULFATE 1 GM/2 ML VIAL IM ONE; -MANNITOL 25% 50ML VIAL IV ONE; +NAPR-1023 PO; +OMEP40CA13 PO; -PHENYLEPHRINE HCL 10 MG/ML 1ML VIAL IV ONE; +ROSU20TA23 PO; -SODIUM BICARB 8.4% 50ML SYRINGE IVP ONE
[2019-08-06 19:17] LABS: BASOPHILS % (AUTO) 0.4 % (0.0-5.0); EOSINOPHILS % (AUTO) 5.3 % (0.0-8.0); HEMATOCRIT 26.5 % (36-48); LYMPHOCYTES % (AUTO) 17.9 % (21.0-51.0); MEAN CORPUSCULAR HEMOGLOBIN 31.7 pg (27.0-33.0); MEAN CORPUSCULAR HGB CONC 28.7 g/dL (32.0-36.0); MEAN CORPUSCULAR VOLUME 110.4 fL (79-99); MONOCYTES % (AUTO) 6.2 % (3.0-13.0); NEUTROPHILS % (AUTO) 69.7 % (40.0-77.0); PLATELET COUNT (AUTO) 393 K/uL (130-400); RED CELL DISTRIBUTION WIDTH 20.7 % (11.0-15.5); WHITE BLOOD COUNT (AUTO) 12.7 K/uL (4.8-10.8)
[2019-08-06 19:41] LABS: INR 1.03 (0.85-1.15); PARTIAL THROMBOPLASTIN TIME 25.9 SEC (26.3-35.5); PROTHROMBIN TIME 11.1 SEC (9.6-11.6)
[2019-08-06 19:42] LABS: ALBUMIN 1.8 g/dL (3.5-5.0); BILIRUBIN,TOTAL 0.4 mg/dL (0.2-1.0); POTASSIUM 4.3 mmol/L (3.5-5.1); TOTAL PROTEIN, SERUM 7.3 g/dL (6.0-8.3); TROPONIN I 0.06 ng/mL (0.00-0.06)
[2019-08-06 20:01] LABS: ABG BASE EXCESS 4.8 mmol/L (-2.0-3.0); ABG HCO3 27.3 mmol/L (21.0-28.0); ABG PCO2 34 mmHg (32-45)
[2019-08-06] MEDS ORDERED: DEXTROSE 5%-WATER 1,000 ML IV ONE (20:19)
[2019-08-06 20:20] LABS: APPEARANCE,URINE Cloudy (CLEAR); BILIRUBIN,URINE Negative (NEGATIVE); COLOR,URINE Dark Yellow (YELLOW); GLUCOSE, URINE (UA) Negative (NEGATIVE); KETONES,URINE Negative (NEGATIVE); LEUKOCYTE ESTERASE ,URINE Moderate (NEGATIVE); NITRATE,URINE Negative (NEGATIVE); OCCULT BLOOD,URINE Trace (NEGATIVE); PROTEIN,URINE POS 2+ mg/dL (NEGATIVE)
[2019-08-06 21:18] LABS: BACTERIA,URINE Few /HPF (None Seen); RBC,URINE None Seen /HPF (0-1); SQUAMOUS EPITHELIAL CELL,UR 0-2 /HPF (0-2); WBC,URINE 26-50 /HPF (0-1)
[2019-08-06] MEDS: DEXTROSE 5%-WATER 1,000 ML IV SCH (21:30)
[2019-08-06 23:00] VITALS: BP 92/64
--- NOTE | 2019-08-06 23:10 | NUR ---
ADMISSION 223 RECEIVED REPORT FROM ISSA LAZO RN PT ADMITTED RM 226 FROM ER PT CONFUSED ALERT X1 CONTINUES TO REACH/PULL AT IV LINE AND TUBINGS HAND MITTENS APPLIED BED ALARM SET. UNABLE TO COMPLETE ADMISSION DATABASE AT THIS TIME DUE TO PT CONDITION. NO BELONGINGS/MED AT BEDSIDE. PT IN NO DISTRESS AT THIS TIME, WILL CONTINUE TO MONITOR
[2019-08-06] MEDS: CEFAZOLIN SODIUM 1 GM VIAL IVP SCH (23:42)
[2019-08-07 03:00] VITALS: BP 92/62
[2019-08-07 06:07] LABS: HEMATOCRIT 25.6 % (36-48); MEAN CORPUSCULAR HEMOGLOBIN 32.6 pg (27.0-33.0); MEAN CORPUSCULAR HGB CONC 28.9 g/dL (32.0-36.0); MEAN CORPUSCULAR VOLUME 112.8 fL (79-99); NUCLEATED RED BLOOD CELLS 0.2 % (0.0-0.19); RED BLOOD CELL COUNT(AUTO) 2.27 MIL/uL (4.00-5.50); RED CELL DISTRIBUTION WIDTH 21.1 % (11.0-15.5); WHITE BLOOD COUNT (AUTO) 11.3 K/uL (4.8-10.8)
[2019-08-07 06:19] LABS: ALBUMIN 1.7 g/dL (3.5-5.0); ASPARTATE AMINOTRANSFERASE 23 U/L (10-37); BILIRUBIN,TOTAL 0.4 mg/dL (0.2-1.0); CARBON DIOXIDE 33 mmol/L (21-32); CREATININE 2.3 mg/dL (0.5-1.5); GLOMERULAR FILTR. RATE CALC 22 mL/min (>60); GLUCOSE,RANDOM 123 mg/dL (70-105); POTASSIUM 4.4 mmol/L (3.5-5.1); TOTAL PROTEIN, SERUM 6.9 g/dL (6.0-8.3); UREA NITROGEN, BLOOD 61 mg/dL (7-18)
[2019-08-07 06:27] LABS: ALANINE AMINOTRANSFERASE < 6 U/L (12-78)
[2019-08-07 06:29] LABS: CHLORIDE 126 mmol/L (101-111); SODIUM SERUM 163 mmol/L (136-145)
[2019-08-07 08:00] VITALS: BP 112/51
[2019-08-07] MEDS: CEFAZOLIN SODIUM 1 GM VIAL IVP SCH ×2 (09:44→21:15)
[2019-08-07] MEDS: ENOXAPARIN SODIUM 30 MG/0.3 ML SQ SCH (09:45)
[2019-08-07] MEDS: DEXTROSE 5%-WATER 1,000 ML IV SCH (09:48)
[2019-08-07 12:00] VITALS: BP 100/60
--- NOTE | 2019-08-07 13:30 | NUR ---
VENOUS ACCESS DR. AG MADE AWARE THAT PATIENT'S PERIPHERAL IVS HAVE INFILTRATED. HE STATED TO OBTAIN ORDER FOR PICC LINE. HE WAS MADE AWARE THAT PATIENT HAS RIGHT UPPER CHEST DELACRUZ THAT APPEARS TO BE MALPOSITIONED, HE STATED FOR STAT CXR TO CONFIRM PLACEMENT. PATIENT'S SISTER WAS INFORMED OF CURRENT SITUATION. CONSENT FOR PICC LINE WAS OBTAINED. AQUATICS SPECIALIST NOTIFIED.
[2019-08-07 14:21] LABS: INR 1.1 (0.85-1.15); PARTIAL THROMBOPLASTIN TIME 30.7 SEC (26.3-35.5); PROTHROMBIN TIME 11.8 SEC (9.6-11.6)
--- NOTE | 2019-08-07 14:30 | NUR ---
DR. VIVI TRINIDAD AT BEDSIDE TO SEE AND ASSESS PATIENT AT THIS TIME. GAVE ORDERS FOR 400ML OF WATER FLUSHES VIA NGT EVERY 6HRS. ORDERS ENTERED UNDER NURSING COMMUNICATION.
--- NOTE | 2019-08-07 15:00 | NUR ---
DR. MCALLISTER SPOKE TO DR. MCALLISTER ON THE PHONE AT THIS TIME. NOTIFIED HIM THAT PATIENT IS PENDING COVID 19 RESULTS. HE STATED PLAN FOR PEG TUBE PLACEMENT ONCE RESULTS COME BACK NEGATIVE.
--- NOTE | 2019-08-07 15:20 | NUR ---
DELACRUZ CATHETER DR. AG NOTIFIED OF CXR RESULTS AND DELACRUZ PLACEMENT. HE STATED OKAY TO USE, NO NEED FOR PICC LINE. [facility] NOTIFIED.
[2019-08-07 16:00] VITALS: BP 106/54
[2019-08-07 19:00] VITALS: BP 103/69
[2019-08-07 23:00] VITALS: BP 105/68
[2019-08-08 03:00] VITALS: BP 116/82
[2019-08-08 07:31] LABS: HEMATOCRIT 25.1 % (36-48); MEAN CORPUSCULAR HGB CONC 29.1 g/dL (32.0-36.0); MEAN CORPUSCULAR VOLUME 110.1 fL (79-99); PLATELET COUNT (AUTO) 352 K/uL (130-400); RED BLOOD CELL COUNT(AUTO) 2.28 MIL/uL (4.00-5.50); RED CELL DISTRIBUTION WIDTH 20.2 % (11.0-15.5); WHITE BLOOD COUNT (AUTO) 11.4 K/uL (4.8-10.8)
[2019-08-08 07:47] LABS: ALBUMIN 1.7 g/dL (3.5-5.0); POTASSIUM 3.8 mmol/L (3.5-5.1)
[2019-08-08 08:00] VITALS: BP 131/82
[2019-08-08] MEDS: ENOXAPARIN SODIUM 30 MG/0.3 ML SQ SCH (09:10)
[2019-08-08] MEDS: CEFAZOLIN SODIUM 1 GM VIAL IVP SCH ×2 (09:10→20:06)
[2019-08-08 11:00] VITALS: BP 99/71
[2019-08-08] MEDS: DEXTROSE 5%-WATER 1,000 ML IV SCH (13:02)
[2019-08-08] MEDS ORDERED: PHARMACY COMMUNICATION MISC SCH (15:45)
[2019-08-08 16:00] VITALS: BP 111/73
--- NOTE | 2019-08-08 17:05 | NUR ---
D/C PLAN CM performed chart review. Pt is readmission from less than 24 hrs. Pt discharged to [facility] on 08/04 and readmitted to hospital on 08/06/19. Plan for now is to return to [facility] once medically stable. CM to f/u with family. Per medical record, pt readmitted with confusion and hypotension. Addendum: 08/08/19 at 1707 by SHE SANDOVAL CM Amended: Links added.
[2019-08-08 19:32] VITALS: BP 101/57
[2019-08-08] MEDS: GABAPENTIN 300 MG CAPSULE PO SCH ×2 (20:06→20:43)
[2019-08-08] MEDS: ATORVASTATIN CALCIUM 40 MG TABLET PO SCH (20:06)
[2019-08-08 23:32] VITALS: BP 102/66
[2019-08-09 03:30] VITALS: BP 111/70
[2019-08-09 06:05] LABS: ALBUMIN 1.7 g/dL (3.5-5.0); CREATININE 1.6 mg/dL (0.5-1.5); PHOSPHORUS 3.9 mg/dL (2.5-4.9); POTASSIUM 3.5 mmol/L (3.5-5.1)
[2019-08-09 07:30] VITALS: BP 110/69
[2019-08-09] MEDS: LISINOPRIL 20 MG TABLET PO SCH (08:13)
[2019-08-09] MEDS: GABAPENTIN 300 MG CAPSULE PO SCH ×2 (08:13→20:30)
[2019-08-09] MEDS: CEFAZOLIN SODIUM 1 GM VIAL IVP SCH ×2 (08:14→20:28)
[2019-08-09] MEDS: ENOXAPARIN SODIUM 30 MG/0.3 ML SQ SCH (08:14)
[2019-08-09] MEDS: DEXTROSE 5%-WATER 1,000 ML IV SCH (08:14)
[2019-08-09 11:00] VITALS: BP 104/76
[2019-08-09 16:00] VITALS: BP 91/55
--- NOTE | 2019-08-09 16:00 | NUR ---
[facility] CONSULT PATIENT ASSESSED REQUESTED: [facility] RECOMMENDATIONS SUBMITTED AND REPORT GIVEN TO PATIENT'S NURSE ALE. Addendum: 08/09/19 at 1601 by PJ YI LVN LVN W Amended: Links added.
--- NOTE | 2019-08-09 18:21 | NUR ---
Lab called to inform RN pt was negative for Covid, called houseperson to inform of pt's negative test, pending to transfer pt out of unit, informed Dr. Sutton who provided orders for pt to be transferred out of unit.
[2019-08-09 19:55] VITALS: BP 98/59
--- NOTE | 2019-08-09 20:25 | NUR ---
ASSESSMENT PT RESTING IN BED. IVF D5W AT 50ML/H INFUSING WITHOUT DIFFICULTY VIA DELACRUZ CATHETER. SPPECH IS GARBLED, PT NOT FOLLOWING COMMANDS. RIGHT NARE NGT CLAMPED. PT COVID-19 NEGATIVE, PENDING TRANSFER TO FOURTH FLOOR. ASSESSMENT COMPLETE, SEE FLOW SHEET. CALLBELL WITHIN REACH.
[2019-08-09] MEDS: ATORVASTATIN CALCIUM 40 MG TABLET PO SCH (20:29)
--- NOTE | 2019-08-09 22:00 | NUR ---
REPORT REPORT CALLED TO GILA YEPEZ AT 2144, TELE PACK IN PLACE. O2 2L NC. PT'S BELONGINGS PACKED UP AND WITH PT. 2150: PT TRANSFERRED TO ROOM 416 VIA BED, PT SETTLED IN ROOM.
[2019-08-10] VITALS (7 sets, daily range): BP systolic 87–109; BP diastolic 54–74
[2019-08-10 04:14] LABS: ALBUMIN 1.5 g/dL (3.5-5.0); CREATININE 1.4 mg/dL (0.5-1.5); PHOSPHORUS 4.6 mg/dL (2.5-4.9); POTASSIUM 3.4 mmol/L (3.5-5.1)
[2019-08-10 06:08] LABS: MEAN CORPUSCULAR HEMOGLOBIN 32.5 pg (27.0-33.0); MEAN CORPUSCULAR HGB CONC 29.6 g/dL (32.0-36.0); NUCLEATED RED BLOOD CELLS 0.2 % (0.0-0.19); RED BLOOD CELL COUNT(AUTO) 2.09 MIL/uL (4.00-5.50); RED CELL DISTRIBUTION WIDTH 19.4 % (11.0-15.5)
[2019-08-10 06:12] LABS: INR 1.71 (0.85-1.15); PARTIAL THROMBOPLASTIN TIME 36.1 SEC (26.3-35.5); PROTHROMBIN TIME 18.1 SEC (9.6-11.6)
[2019-08-10] MEDS: DEXTROSE 5%-WATER 1,000 ML IV SCH (06:18)
[2019-08-10 06:24] LABS: CREATININE 1.5 mg/dL (0.5-1.5); POTASSIUM 3.5 mmol/L (3.5-5.1)
--- NOTE | 2019-08-10 07:15 | NUR ---
H/H DR AG NOTIFIED OF CRITICAL H/H. ORDERS TO TRANSFUSE 1 UNIT PRBC
--- NOTE | 2019-08-10 08:00 | NUR ---
CONSENT SISTER NOAH MURGUIA CALLED. CONSENT OBTAINED FOR TRANSFUSION. LUCHO KENNY 2ND WITNESS.
[2019-08-10] MEDS: LISINOPRIL 20 MG TABLET PO SCH (09:51)
[2019-08-10] MEDS: GABAPENTIN 300 MG CAPSULE PO SCH ×2 (09:52→20:03)
[2019-08-10] MEDS: CEFAZOLIN SODIUM 1 GM VIAL IVP SCH ×2 (09:52→20:01)
[2019-08-10] MEDS ORDERED: SODIUM CHLORIDE 0.9% 250 ML IV ONE (10:41)
[2019-08-10] MEDS ORDERED: PROPOFOL 10 MG/ML 20ML VIAL IV ONE (13:45)
--- NOTE | 2019-08-10 14:36 | NUR ---
LE NOTIFICATION - NGT TUBE IN PLACE Tube Feeding Recommendations: Continuous, Nepro initiated at 20mls/hr for 5 hours. Increase rate as tolerated by 5 mLs every 5 hours. Goal Rate: 35mls (840mL, 1512kCal, 68gm Protein) Recommended Flushes: 175ml Q6hrs Pt away with chart for procedure at time of visit. Pt admitted with NGT. Hx of Renal failure. Pt with MANDI, PCM, Hypernatremia as per EMR. Orders to be placed in chart. Please contact LE as additional nutrition concerns arise. Thank you. Addendum: 08/10/19 at [address] Amended: Links added.
[2019-08-10] MEDS ORDERED: AMIODARONE HCL 900 MG in DEXTROSE 5%-WATER 500 ML IV SCH (19:15)
[2019-08-10] MEDS: ATORVASTATIN CALCIUM 40 MG TABLET PO SCH (20:03)
--- NOTE | 2019-08-10 20:15 | NUR ---
AMIODARONE DRIP STARTED ORDERED. PT CURRENTLY RUNNING AFIB 120S. VERIFIED DRIP RATE WITH LUCHO COLEMAN. Addendum: 08/10/19 at 2103 by PEG RUIZ RN RN Amended: Links added.
--- NOTE | 2019-08-10 21:50 | NUR ---
PROCEDURE CALLED [employer] FORMING MACHINE HELPER TO INFORM OF PENDING PROCEDURE FOR PEG PLACEMENT TOMORROW. JULIA ANDERSON SAID IT CAN BE ADDED ON TO THE SCHEDULE IN THE AM.
[2019-08-11] VITALS (19 sets, daily range): BP systolic 88–107; BP diastolic 48–69
[2019-08-11] MEDS: DEXTROSE 5%-WATER 1,000 ML IV SCH ×2 (01:30→21:30)
[2019-08-11 03:33] LABS: BASOPHILS % (AUTO) 0.2 % (0.0-5.0); EOSINOPHILS % (AUTO) 7.8 % (0.0-8.0); HEMATOCRIT 28.6 % (36-48); LYMPHOCYTES % (AUTO) 17.9 % (21.0-51.0); MEAN CORPUSCULAR HEMOGLOBIN 31.2 pg (27.0-33.0); MEAN CORPUSCULAR HGB CONC 30.8 g/dL (32.0-36.0); MEAN CORPUSCULAR VOLUME 101.4 fL (79-99); MONOCYTES % (AUTO) 6.5 % (3.0-13.0); NEUTROPHILS % (AUTO) 66.6 % (40.0-77.0); PLATELET COUNT (AUTO) 303 K/uL (130-400); RED BLOOD CELL COUNT(AUTO) 2.82 MIL/uL (4.00-5.50); RED CELL DISTRIBUTION WIDTH 22.1 % (11.0-15.5); WHITE BLOOD COUNT (AUTO) 11.1 K/uL (4.8-10.8)
[2019-08-11 03:45] LABS: INR 2.23 (0.85-1.15); PARTIAL THROMBOPLASTIN TIME 39.2 SEC (26.3-35.5); PROTHROMBIN TIME 23.4 SEC (9.6-11.6)
[2019-08-11 03:46] LABS: ALBUMIN 1.5 g/dL (3.5-5.0); CREATININE 1.6 mg/dL (0.5-1.5); PHOSPHORUS 4.8 mg/dL (2.5-4.9); POTASSIUM 3.5 mmol/L (3.5-5.1)
--- NOTE | 2019-08-11 05:04 | NUR ---
WOUND CARE ALLEVYN PAD CHANGED. PENDING FOR PHARMACY TO BRING MEDIHONEY TUBE IN THE AM.
[2019-08-11] MEDS: INSULIN HUMULIN R 100 UNIT/ML 3ML SQ SCH ×5 (06:00→23:31)
[2019-08-11] MEDS ORDERED: PHARMACY COMMUNICATION MISC SCH (07:30)
[2019-08-11] MEDS ORDERED: POTASSIUM CHLORIDE 10% ELIXIR 20 MEQ/15 ML UDCUP PO SCH (07:30)
[2019-08-11] MEDS ORDERED: COMPOUND PO MISCELLANEOUS 1 EACH MISC MISC PRN (08:15)
[2019-08-11] MEDS: AMIODARONE HCL 200 MG TABLET PO SCH ×2 (08:59→21:10)
[2019-08-11] MEDS: ASPIRIN 81MG TAB.CHEW PO SCH (09:00)
[2019-08-11] MEDS: GABAPENTIN 300 MG CAPSULE PO SCH ×2 (09:00→21:09)
[2019-08-11] MEDS: LISINOPRIL 20 MG TABLET PO SCH (09:00)
[2019-08-11] MEDS: PHYTONADIONE PO SCH ×4 (09:01→16:15)
[2019-08-11] MEDS: WATER FOR INJECTION STERILE PO SCH ×4 (09:01→16:15)
--- NOTE | 2019-08-11 11:04 | NUR ---
RD UPDATE PEG cancellation d/t INR, as per EMR. NGT feedings to be resumed. Tube feeding recommendations placed in Pt chart 08/11/19, 11:00AM. RD to continue to monitor.
[2019-08-11] MEDS ORDERED: RIFAMPIN 300 MG CAPSULE PO SCH (12:30)
[2019-08-11] MEDS: CEFAZOLIN SODIUM 1 GM VIAL IVP SCH ×2 (14:00→21:10)
[2019-08-11 14:01] LABS: INR 1.65 (0.85-1.15); PROTHROMBIN TIME 17.5 SEC (9.6-11.6)
[2019-08-11] MEDS ORDERED: KETAMINE 50MG/ML SYRINGE 50 MG/ML DISP.SYRIN IV ONE (15:16)
[2019-08-11] MEDS ORDERED: MIDAZOLAM HCL 1 MG/ML 2ML VIAL ONE (15:17)
[2019-08-11] MEDS: ATORVASTATIN CALCIUM 40 MG TABLET PO SCH (21:09)
[2019-08-11] MEDS: RIFAMPIN 300 MG CAPSULE PO SCH (21:10)
[2019-08-12 03:37] VITALS: BP 100/62
[2019-08-12 04:28] LABS: ALBUMIN 1.7 g/dL (3.5-5.0); BILIRUBIN,TOTAL 0.4 mg/dL (0.2-1.0); CREATININE 1.6 mg/dL (0.5-1.5); POTASSIUM 3.7 mmol/L (3.5-5.1); TOTAL PROTEIN, SERUM 6.6 g/dL (6.0-8.3)
[2019-08-12] MEDS: INSULIN HUMULIN R 100 UNIT/ML 3ML SQ SCH ×3 (05:53→18:00)
[2019-08-12] MEDS: CEFAZOLIN SODIUM 1 GM VIAL IVP SCH ×3 (06:04→22:22)
[2019-08-12 08:08] VITALS: BP 108/61
[2019-08-12] MEDS: AMIODARONE HCL 200 MG TABLET PO SCH ×2 (08:19→20:15)
[2019-08-12] MEDS: GABAPENTIN 300 MG CAPSULE PO SCH ×2 (08:19→20:15)
[2019-08-12] MEDS: ASPIRIN 81MG TAB.CHEW PO SCH (08:19)
[2019-08-12] MEDS: LISINOPRIL 20 MG TABLET PO SCH (08:20)
[2019-08-12] MEDS: PHYTONADIONE PO SCH ×2 (08:21)
[2019-08-12] MEDS: WATER FOR INJECTION STERILE PO SCH ×2 (08:21)
[2019-08-12] MEDS: RIFAMPIN 300 MG CAPSULE PO SCH ×2 (08:21→20:15)
[2019-08-12 11:50] VITALS: BP 109/56
--- NOTE | 2019-08-12 12:13 | NUR ---
RD UPDATE - PEG PLACEMENT Notification of PEG PLACED 08/11/19. NGT removed. Recommend continue recommended tube feeding. Tube feeding at goal rate of Nepro @35mls/hr as per EMR. Recommend continue. RD to continue to monitor.
--- NOTE | 2019-08-12 12:37 | NUR ---
CM NOTE/REFERRAL PEG PLACED 08/10, TUBE FEEDINGS INITIATED 08/10 IN EVENING. ANA M OBTAINED PREVIOUSLY FROM [facility]. CLINICAL PACKET AND PASRR FAXED AND CONFIRMED RECEIVED AT [facility]. HELENA FROM [facility] NOTIFIED, PENDING PT EVAL NOTE AND SIGNED COVID ASSESSMENT FORM TO BE FAXED. NEGATIVE COVID TEST RESULTS FAXED WITH CLINICAL PACKET. ANTICIPATED DC TO [facility] IF STABLE AND TOLERATING DIET.
--- NOTE | 2019-08-12 13:49 | NUR ---
CM NOTE/PT EVAL NOTES PT EVAL NOTES EMAILED TO HELENA, CLINICAL LIASON FOR HNR. PER HELENA, WILL SUBMIT FOR AUTHORIZATION. PATIENT CONTINUES TO TOLERATED PEG TUBE FEEDINGS PER PRIMARY NURSE LEONIDES YEPEZ.
[2019-08-12 16:40] VITALS: BP 107/63
[2019-08-12] MEDS: DEXTROSE 5%-WATER 1,000 ML IV SCH (17:30)
[2019-08-12 19:55] VITALS: BP 100/62
[2019-08-12] MEDS: ATORVASTATIN CALCIUM 40 MG TABLET PO SCH (20:15)
[2019-08-12] MEDS: HONEY 1 APPL/ML TUBE TP SCH (20:16)
[2019-08-12 23:11] VITALS: BP 101/65
--- NOTE | 2019-08-12 23:20 | NUR ---
MD ROUNDS DR. TRINIDAD IN TO SEE PATIENT. UPDATED ON STATUS AND POC. NO NEW ORDERS FROM HIM AT THIS TIME.
[2019-08-13 02:51] VITALS: BP 98/65
--- NOTE | 2019-08-13 05:00 | NUR ---
PT WITH EMESIS DURING ORAL CARE, MODERATE AMOUNT, SENSITIVE TO ORAL CARE.
[2019-08-13] MEDS: INSULIN HUMULIN R 100 UNIT/ML 3ML SQ SCH ×4 (05:46→18:00)
[2019-08-13] MEDS: CEFAZOLIN SODIUM 1 GM VIAL IVP SCH ×3 (05:46→22:05)
--- NOTE | 2019-08-13 07:54 | NUR ---
MD ROUNDS DR. HAGER IN TO SEE PATIENT. UPDATED ON STATUS. ORDERS FOR LABS TOMORROW AM. WILL AWAIT DR. YOUNG RECOMMENDATIONS.
[2019-08-13 08:42] VITALS: BP 117/70
[2019-08-13] MEDS: RIFAMPIN 300 MG CAPSULE PO SCH ×2 (10:43→21:33)
[2019-08-13] MEDS: ASPIRIN 81MG TAB.CHEW PO SCH (10:43)
[2019-08-13] MEDS: AMIODARONE HCL 200 MG TABLET PO SCH ×2 (10:43→21:34)
[2019-08-13] MEDS: GABAPENTIN 300 MG CAPSULE PO SCH ×2 (10:43→21:33)
[2019-08-13] MEDS: LISINOPRIL 20 MG TABLET PO SCH (10:44)
[2019-08-13 11:00] VITALS: BP 105/42
[2019-08-13] MEDS: DEXTROSE 5%-WATER 1,000 ML IV SCH (14:02)
--- NOTE | 2019-08-13 15:17 | NUR ---
LE FOLLOW UP Pt tolerating Tube feedings at goal rate, Nepro @35mls/hr. Noted, LBM 08/07/19. Recommend stool softener/laxative as medically feasible. Recommend continue tube feedings. RD to continue to monitor. Please notify as additional nutrition concerns arise. Thank you. Addendum: 08/13/19 at [address] Amended: Links added.
[2019-08-13 16:00] VITALS: BP 94/62
[2019-08-13 19:00] VITALS: BP 95/55
[2019-08-13] MEDS: LACTULOSE 20 GM/30 ML UDCUP PO SCH (21:32)
[2019-08-13] MEDS: HONEY 1 APPL/ML TUBE TP SCH (21:32)
[2019-08-13] MEDS: ATORVASTATIN CALCIUM 40 MG TABLET PO SCH (21:33)
[2019-08-13 23:00] VITALS: BP 106/56
[2019-08-14 03:00] VITALS: BP 104/55
[2019-08-14 04:59] LABS: CREATININE 1.5 mg/dL (0.5-1.5); MAGNESIUM 2.5 mg/dL (1.80-2.40)
[2019-08-14 05:17] LABS: BASOPHILS % (AUTO) 0.2 % (0.0-5.0); EOSINOPHILS % (AUTO) 9.3 % (0.0-8.0); HEMATOCRIT 30.1 % (36-48); LYMPHOCYTES % (AUTO) 9.9 % (21.0-51.0); MEAN CORPUSCULAR HEMOGLOBIN 32.2 pg (27.0-33.0); MEAN CORPUSCULAR HGB CONC 30.6 g/dL (32.0-36.0); MEAN CORPUSCULAR VOLUME 105.2 fL (79-99); MONOCYTES % (AUTO) 7.1 % (3.0-13.0); PLATELET COUNT (AUTO) 128 K/uL (130-400); RED BLOOD CELL COUNT(AUTO) 2.86 MIL/uL (4.00-5.50); RED CELL DISTRIBUTION WIDTH 20.7 % (11.0-15.5)
[2019-08-14] MEDS: INSULIN HUMULIN R 100 UNIT/ML 3ML SQ SCH ×3 (06:00→12:00)
[2019-08-14] MEDS: CEFAZOLIN SODIUM 1 GM VIAL IVP SCH ×2 (06:23→13:51)
--- NOTE | 2019-08-14 07:52 | NUR ---
PATIENT UPDATE Pt oriented x 1, reoriented x 3. On continous tube feeding per PEG, getting high residuals from 100 to 110 cc's. HOB up at 40 degrees, aspiration precautions. Continues on the ivf of d5w at 50 cc's per hour, only 200 cc's output from the sosa catheter.
[2019-08-14 07:55] VITALS: BP 110/69
[2019-08-14] MEDS: RIFAMPIN 300 MG CAPSULE PO SCH (09:00)
[2019-08-14] MEDS: GABAPENTIN 300 MG CAPSULE PO SCH (09:00)
[2019-08-14] MEDS: LISINOPRIL 20 MG TABLET PO SCH (09:01)
[2019-08-14] MEDS: AMIODARONE HCL 200 MG TABLET PO SCH (09:01)
[2019-08-14] MEDS: ASPIRIN 81MG TAB.CHEW PO SCH (09:01)
[2019-08-14] MEDS: LACTULOSE 20 GM/30 ML UDCUP PO SCH (09:02)
[2019-08-14] MEDS: DEXTROSE 5%-WATER 1,000 ML IV SCH (09:02)
[2019-08-14 11:16] VITALS: BP 110/57
--- NOTE | 2019-08-14 14:30 | NUR ---
[facility] REPORT REPORT CALLED IN TO ROLANDO REYES. PATIENT BEING TRANSFERRED VIA EMS. PATIENT IS AWAKE AND ORIENTED X 1. BEDBOUND. BEING DISCHARGED WITH PEG TUBE AND RIGHT CHEST DELACRUZ CATHETER. INFORMED PATIENTS SISTER OF ROSENDA OF TRANSFER TO [facility], SHE IS IN AGREEMENT.
--- NOTE | 2019-08-14 15:00 | NUR ---
[facility] HAS BEEN CALLED FOR PATIENT TRANSFER TO [facility].
--- NOTE | 2019-08-14 16:55 | NUR ---
[facility] HERE TO TAKE PATIENT TO [facility].
== END 2019-08-14 16:59 | DRG 871 ==
LOC: EDH 18:34 → EDHIP 21:16 → 2DH 22:46 → 4CH 08-09 21:55 → 4DH 08-10 06:18 → 4AH 08-13 12:26 → 4DH 08-13 12:30
PROVIDERS: ADMIT Internal Medicine Infectious Disease; ATTEND Internal Medicine Infectious Disease
PROC: 0DH63UZ Insertion of Feeding Device into Stomach, Percutaneous Approach (ICD-10-PCS; 2019-08-10)
PROC: 30233N1 Transfusion of Nonautologous Red Blood Cells into Peripheral Vein, Percutaneous Approach (ICD-10-PCS; principal; 2019-08-11)
DX: A41.2 Sepsis due to unspecified staphylococcus (principal); G93.41 Metabolic encephalopathy; I33.0 Acute and subacute infective endocarditis; E43 Unspecified severe protein-calorie malnutrition; I63.40 Cerebral infarction due to embolism of unspecified cerebral artery; E87.0 Hyperosmolality and hypernatremia; N17.9 Acute kidney failure, unspecified; E87.1 Hypo-osmolality and hyponatremia; E87.3 Alkalosis; D68.9 Coagulation defect, unspecified; I13.0 Hypertensive heart and chronic kidney disease with heart failure and stage 1 through stage 4 chronic kidney disease, or unspecified chronic kidney disease; M86.9 Osteomyelitis, unspecified; N39.0 Urinary tract infection, site not specified; D63.8 Anemia in other chronic diseases classified elsewhere; D69.6 Thrombocytopenia, unspecified; E11.22 Type 2 diabetes mellitus with diabetic chronic kidney disease; E66.01 Morbid (severe) obesity due to excess calories; E78.00 Pure hypercholesterolemia, unspecified; E86.0 Dehydration; E87.8 Other disorders of electrolyte and fluid balance, not elsewhere classified; F03.90 Unspecified dementia, unspecified severity, without behavioral disturbance, psychotic disturbance, mood disturbance, and anxiety; I48.91 Unspecified atrial fibrillation; I50.9 Heart failure, unspecified; E11.69 Type 2 diabetes mellitus with other specified complication; K55.20 Angiodysplasia of colon without hemorrhage; M46.49 Discitis, unspecified, multiple sites in spine; N18.9 Chronic kidney disease, unspecified; L89.152 Pressure ulcer of sacral region, stage 2; R09.02 Hypoxemia; R13.12 Dysphagia, oropharyngeal phase; Z68.33 Body mass index [BMI] 33.0-33.9, adult; Z88.0 Allergy status to penicillin; Z88.2 Allergy status to sulfonamides; Z88.8 Allergy status to other drugs, medicaments and biological substances; Z79.82 Long term (current) use of aspirin; Z74.01 Bed confinement status; Z79.899 Other long term (current) drug therapy; Z86.79 Personal history of other diseases of the circulatory system; Z93.1 Gastrostomy status; Z95.2 Presence of prosthetic heart valve; Z86.73 Personal history of transient ischemic attack (TIA), and cerebral infarction without residual deficits; Z03.818 Encounter for observation for suspected exposure to other biological agents ruled out
CPT/HCPCS: 36415; 36430; 36600; 43246; 43255; 71045; 80048; 80053; 80069; 81001; 82140; 82270; 82550; 82803; 82948; 83605; 83735; 83874; 83880; 84145; 84484; 85025; 85027; 85610; 85730; 85732; 86677; 86850; 86900; 86901; 86922; 87040; 87088; 87633; 87635; 93005; 99291; A4606; G0378; J0282; J0690; J1650; J2250; J2704; J3430; J7030; J7050; J7060; J7070; P9016

== ENCOUNTER 2019-08-17 08:58 | Inpatient (IN) | payer MEDICARE ==
[2019-08-17] VITALS (26 sets, daily range): BP systolic 80–119; BP diastolic 41–70
[~2019-08-17] VITALS: Ht 177.8 cm; Wt 102.3 kg
[2019-08-17] MEDS ORDERED: MEROPENEM 1 GM VIAL ONE (09:39)
[2019-08-17 09:54] LABS: BASOPHILS % (AUTO) 0.2 % (0.0-5.0); EOSINOPHILS % (AUTO) 7.7 % (0.0-8.0); HEMATOCRIT 26.3 % (36-48); LYMPHOCYTES % (AUTO) 11.1 % (21.0-51.0); MEAN CORPUSCULAR HEMOGLOBIN 32.3 pg (27.0-33.0); MEAN CORPUSCULAR HGB CONC 30.8 g/dL (32.0-36.0); MEAN CORPUSCULAR VOLUME 104.8 fL (79-99); MONOCYTES % (AUTO) 7.8 % (3.0-13.0); NEUTROPHILS % (AUTO) 72.2 % (40.0-77.0); PLATELET COUNT (AUTO) 254 K/uL (130-400); RED BLOOD CELL COUNT(AUTO) 2.51 MIL/uL (4.00-5.50); RED CELL DISTRIBUTION WIDTH 19.3 % (11.0-15.5); WHITE BLOOD COUNT (AUTO) 12.6 K/uL (4.8-10.8)
[2019-08-17 10:00] LABS: CARBON DIOXIDE 25 mmol/L (21-32); CHLORIDE 100 mmol/L (101-111); CREATININE 3.7 mg/dL (0.5-1.5); GLOMERULAR FILTR. RATE CALC 13 mL/min (>60); GLUCOSE,RANDOM 120 mg/dL (70-105); POTASSIUM 3.8 mmol/L (3.5-5.1); SODIUM SERUM 135 mmol/L (136-145); UREA NITROGEN, BLOOD 74 mg/dL (7-18)
[2019-08-17 10:05] LABS: INR 0.91 (0.85-1.15); PARTIAL THROMBOPLASTIN TIME 23.1 SEC (26.3-35.5); PROTHROMBIN TIME 9.9 SEC (9.6-11.6)
[2019-08-17 10:11] LABS: ALBUMIN 1.6 g/dL (3.5-5.0); ASPARTATE AMINOTRANSFERASE 19 U/L (10-37); BILIRUBIN,TOTAL 0.3 mg/dL (0.2-1.0); CREATINE KINASE, TOTAL 60 U/L (21-232); MYOGLOBIN 237 ng/mL (10-92); TOTAL PROTEIN, SERUM 6.8 g/dL (6.0-8.3); TROPONIN I 0.13 ng/mL (0.00-0.06)
[2019-08-17 10:12] LABS: ALANINE AMINOTRANSFERASE < 6 U/L (12-78)
[2019-08-17] MEDS ORDERED: NOREPINEPHRINE BITARTRATE 1 MG/1 ML ML IV ONE (11:48)
[2019-08-17] MEDS ORDERED: ETOMIDATE 2 MG/ML 10 ML VIAL IVP ONE ×2 (12:14→12:15)
[2019-08-17] MEDS ORDERED: SUCCINYLCHOLINE CHLORIDE 20 MG/ML 10 ML VIAL IVP ONE (12:14)
[2019-08-17 13:15] LABS: APPEARANCE,URINE TURBID (CLEAR); BILIRUBIN,URINE MODERATE (NEGATIVE); COLOR,URINE RED (YELLOW); GLUCOSE, URINE (UA) 100 mg/dL (NEGATIVE); KETONES,URINE 5 mg/dL (NEGATIVE); LEUKOCYTE ESTERASE ,URINE LARGE (NEGATIVE); NITRATE,URINE POSITIVE (NEGATIVE); OCCULT BLOOD,URINE LARGE (NEGATIVE); PH,URINE 7.5 (5.0-8.0); PROTEIN,URINE >=300 mg/dL (NEGATIVE)
[2019-08-17 13:46] LABS: BACTERIA,URINE Moderate /HPF (None Seen); RBC,URINE TNTC /HPF (0-1); SQUAMOUS EPITHELIAL CELL,UR 0-2 /HPF (0-2); WBC,URINE TNTC /HPF (0-1)
--- NOTE | 2019-08-17 16:00 | NUR ---
MDs called [address] Sutton he is aware patient is in covid unit no new orders. 1605 Called [facility] spoke with Esmer ODELL she is aware of consult. [address] Emerson made him aware of consult and patients labs he will see patient in am as per Dr. Emerson.
--- NOTE | 2019-08-17 16:05 | NUR ---
RD NOTE Notification for possible PEG placement received. Recommend Continuous tube feeding, Nepro initiated at 20mls/hr for first 5 hours Increase rate as tolerated by 5mls every 5 hours to goal. Goal: 35mls/hr to provide 1512kcal, 68gm protein, 611mL free H2O Recommend Flushes: 175 Q6hrs. Recommendations faxed to [phone]. RN notified. RD to continue to monitor.
[2019-08-17] MEDS ORDERED: GLUCAGON 1MG KIT 1 MG ML IM PRN (16:30)
[2019-08-17] MEDS ORDERED: DEXTROSE 50%-WATER 50 ML DISP.SYRIN IV PRN (16:30)
[2019-08-17] MEDS ORDERED: AZITHROMYCIN 500MG+NS 250ML 250 ML IV SCH (16:30)
[2019-08-17] MEDS ORDERED: LIDOCAINE HCL-MPF 1% 2ML VIAL IV PRN (16:30)
[2019-08-17] MEDS: INSULIN HUMULIN R 100 UNIT/ML 3ML SQ SCH ×2 (16:30→21:00)
[2019-08-17] MEDS ORDERED: SODIUM CHLORIDE 0.9% 1000ML 1,000 ML IV SCH ×2 (16:30)
[2019-08-17] MEDS ORDERED: LEVOFLOXACIN 500 MG/D5W 100 ML 100 ML IV SCH (16:30)
[2019-08-17] MEDS: MEROPENEM 1 GM VIAL IVP SCH (17:42)
[2019-08-17] MEDS: LINEZOLID 600 MG/ISO-OSM 300 ML IV SCH (17:42)
[2019-08-17] MEDS: NOREPINEPHRINE 4MG/NS 250ML 250 ML IV SCH ×2 (17:47→22:17)
--- NOTE | 2019-08-17 19:05 | NUR ---
Received report patient is non verbal and obtunded ,MD and consults were all notified,patient on Levophed drip.Central line access 1 port is occluded.
[2019-08-18] VITALS (56 sets, daily range): BP systolic 77–119; BP diastolic 43–87
[2019-08-18] MEDS: NOREPINEPHRINE 4MG/NS 250ML 250 ML IV SCH ×6 (01:36→20:31)
[2019-08-18] MEDS: LINEZOLID 600 MG/ISO-OSM 300 ML IV SCH ×2 (04:53→16:32)
[2019-08-18] MEDS: MEROPENEM 1 GM VIAL IVP SCH ×2 (04:53→16:32)
[2019-08-18] MEDS: INSULIN HUMULIN R 100 UNIT/ML 3ML SQ SCH ×3 (05:50→17:41)
[2019-08-18 06:15] LABS: BASOPHILS % (AUTO) 0.3 % (0.0-5.0); EOSINOPHILS % (AUTO) 9.9 % (0.0-8.0); HEMATOCRIT 29.5 % (36-48); LYMPHOCYTES % (AUTO) 7.6 % (21.0-51.0); MEAN CORPUSCULAR HEMOGLOBIN 32.1 pg (27.0-33.0); MEAN CORPUSCULAR HGB CONC 30.5 g/dL (32.0-36.0); MEAN CORPUSCULAR VOLUME 105.4 fL (79-99); MONOCYTES % (AUTO) 6.9 % (3.0-13.0); NEUTROPHILS % (AUTO) 74.2 % (40.0-77.0); PLATELET COUNT (AUTO) 236 K/uL (130-400); RED CELL DISTRIBUTION WIDTH 18.6 % (11.0-15.5); WHITE BLOOD COUNT (AUTO) 11.7 K/uL (4.8-10.8)
[2019-08-18 06:31] LABS: ALBUMIN 1.3 g/dL (3.5-5.0); ASPARTATE AMINOTRANSFERASE 37 U/L (10-37); BILIRUBIN,TOTAL 0.3 mg/dL (0.2-1.0); CARBON DIOXIDE 23 mmol/L (21-32); CHLORIDE 100 mmol/L (101-111); CREATININE 3.1 mg/dL (0.5-1.5); GLOMERULAR FILTR. RATE CALC 16 mL/min (>60); GLUCOSE,RANDOM 136 mg/dL (70-105); LACTATE DEHYDROGENASE 582 U/L (81-234); POTASSIUM 4.7 mmol/L (3.5-5.1); SODIUM SERUM 134 mmol/L (136-145); TOTAL PROTEIN, SERUM 6.6 g/dL (6.0-8.3); UREA NITROGEN, BLOOD 73 mg/dL (7-18)
[2019-08-18 06:50] LABS: ALANINE AMINOTRANSFERASE < 6 U/L (12-78)
[2019-08-18 07:21] LABS: B-TYPE NATRIURETIC PEPTIDE 1050 pg/mL (0-100)
[2019-08-18] MEDS: FLUCONAZOLE 200 MG/NS 100 ML 100 ML IV SCH (08:15)
--- NOTE | 2019-08-18 12:18 | NUR ---
DC PLAN PATIENT IN [facility] ICU UNIT NOT ABLE TO VISIT AT THIS TIME. PATIENT HAD BEEN SENT TO [facility] LAST ADMISSION. PENDING PATIENT TO BE STABLE TO CALL FAMILY TO DETERMINE IF PLAN IS TO RETURN TO [facility]. Addendum: 08/18/19 at 1219 by REBA PHILLIP RN CM Amended: Links added.
[2019-08-18] MEDS ORDERED: SODIUM CHLORIDE 0.9% 1000ML 1,000 ML IV ONE (13:58)
[2019-08-18] MEDS ORDERED: SODIUM CHLORIDE 0.9% 1000ML 1,000 ML IV SCH ×2 (14:00→16:30)
--- NOTE | 2019-08-18 15:58 | NUR ---
RD NOTIFICATION Pt readmitted with Septic shock. History of renal failure. Tube feeding initiated. Height and weight retrieved from previous admission. Altered renal labs. BNP 1050. Recommend continue tube feeding RD to continue to monitor. Please notify as additional nutrition concerns arise. Thank you. Addendum: 08/18/19 at [address] Amended: Links added.
[2019-08-18] MEDS: HEPARIN SODIUM 5000UNIT/ML 1ML VIAL SQ SCH (20:32)
[2019-08-19] VITALS (72 sets, daily range): BP systolic 43–133; BP diastolic 15–103
[2019-08-19] MEDS: NOREPINEPHRINE 4MG/NS 250ML 250 ML IV SCH ×2 (01:47→17:54)
[2019-08-19] MEDS: MEROPENEM 1 GM VIAL IVP SCH ×2 (05:01→17:26)
[2019-08-19] MEDS: LINEZOLID 600 MG/ISO-OSM 300 ML IV SCH ×2 (05:01→17:26)
[2019-08-19 05:56] LABS: ALBUMIN 1.3 g/dL (3.5-5.0); CREATININE 2.7 mg/dL (0.5-1.5); PHOSPHORUS 6.2 mg/dL (2.5-4.9); POTASSIUM 4.4 mmol/L (3.5-5.1)
[2019-08-19] MEDS: INSULIN HUMULIN R 100 UNIT/ML 3ML SQ SCH ×4 (06:00→17:55)
[2019-08-19] MEDS ORDERED: SODIUM CHLORIDE 0.9% 1000ML 1,000 ML IV SCH (07:00)
[2019-08-19] MEDS: PANTOPRAZOLE 40 MG/VIAL IVP SCH (08:40)
[2019-08-19] MEDS: FLUCONAZOLE 200 MG/NS 100 ML 100 ML IV SCH (08:40)
[2019-08-19] MEDS: HEPARIN SODIUM 5000UNIT/ML 1ML VIAL SQ SCH (09:00)
[2019-08-19] MEDS: FUROSEMIDE 10 MG/ML 4ML VIAL IV SCH (13:45)
[2019-08-19] MEDS: DEXAMETHASONE SOD PHOSPHATE 4 MG/ML 5ML VIAL IVP SCH (13:50)
[2019-08-19] MEDS: ENOXAPARIN SODIUM 40 MG/0.4 ML SYRINGE SQ SCH (20:13)
[2019-08-19] MEDS ORDERED: DEXAMETHASONE SOD PHOSPHATE 4 MG/ML 5ML VIAL IVP SCH (21:00)
--- NOTE | 2019-08-19 22:00 | NUR ---
UPDATE UPON ARRIVAL PT MORE LETHARIC ABLE TO RESPOND TO PAINFUL STIMULI AND OPEN EYES SLIGHTLY BY SELF. PT REQUIRED NON REBREATHER AT 15L RESPIRATORY LABORED AND SHALLOW. 2200 BENCHMARK MIDLEVEL ANTHONY MONROY JEWEL WAXER NOTIFIED OF PT STATUS DETERIORATING PT NOW UNABLE TO RESPOND TO PAIN AND RESPIRATORY STATUS WORSENING STAT ABG DONE READBACK TO ASSESSMENT RN NEW ORDER FOR 4AMP NA BICARB & NA BICARB DRIP 3amp D5w 100ml/hr and order to intubate. PT FULL CODE STATUS CONFIRMED WITH [facility] ROSENDA MURGUIA . ASSESSMENT RN Rafi MONROY Confirmed intubation with ER DR. ADRIENNE MCCRACKEN BLUE CALLED OVERHEAD PT RECEIVED 25MG ETOMIDATE 125MG SUCCINYLCHOLINE INUBATED AT 2350 & CXR CONFIRMED PLACEMENT BY DR DELEON. ICU TEAM AND LINEN ATTENDANT AT BEDSIDE PT TOLERATED PROCEDURE WELL WILL CONTINUE TO MONITOR.
[2019-08-19 22:55] LABS: ABG BASE EXCESS -10.6 mmol/L (-2.0-3.0); ABG HCO3 20.4 mmol/L (21.0-28.0); ABG OXYGEN SATURATION 95.1 % (95.0-99.0); ABG PCO2 69 mmHg (32-45)
[2019-08-19] MEDS ORDERED: SODIUM BICARB 50MEQ 50ML VIAL ONE ×2 (23:41→23:49)
[2019-08-19] MEDS: SODIUM BICARB 8.4% 50ML SYRINGE IVP SCH (23:50)
[2019-08-19] MEDS ORDERED: DEXTROSE 5%-WATER 1,000 ML IV ONE (23:51)
[2019-08-19] MEDS ORDERED: PROPOFOL 1000 MG/100 ML 100 ML IV ONE (23:59)
[2019-08-20] VITALS (94 sets, daily range): BP systolic 63–168; BP diastolic 35–108
[2019-08-20] MEDS ORDERED: FENTANYL 1000MCG+NS 100ML 100 ML ONE (00:07)
[2019-08-20] MEDS: NOREPINEPHRINE 4MG/NS 250ML 250 ML IV SCH ×3 (00:46→13:07)
[2019-08-20] MEDS ORDERED: FENTANYL CITRATE PF 0.05 MG/ML 1,000 MCG in SODIUM CHLORIDE 0.9% 100 ML IVPB PRN (01:00)
[2019-08-20] MEDS: DEXAMETHASONE SOD PHOSPHATE 4 MG/ML 5ML VIAL IVP SCH ×2 (01:08→08:32)
[2019-08-20] MEDS: MIDAZOLAM 50MG-0.9% NS 50ML 50 ML BAG IV SCH ×3 (01:33→23:27)
[2019-08-20] MEDS: FUROSEMIDE 10 MG/ML 4ML VIAL IV SCH ×2 (02:52→12:09)
[2019-08-20 03:08] LABS: ABG BASE EXCESS -1.1 mmol/L (-2.0-3.0); ABG HCO3 22.1 mmol/L (21.0-28.0); ABG OXYGEN SATURATION 99.6 % (95.0-99.0); ABG PCO2 33 mmHg (32-45)
[2019-08-20 04:50] LABS: BASOPHILS % (AUTO) 0.2 % (0.0-5.0); HEMATOCRIT 25.9 % (36-48); MEAN CORPUSCULAR HEMOGLOBIN 31.5 pg (27.0-33.0); MEAN CORPUSCULAR HGB CONC 31.3 g/dL (32.0-36.0); MEAN CORPUSCULAR VOLUME 100.8 fL (79-99); MONOCYTES % (AUTO) 3.7 % (3.0-13.0); NEUTROPHILS % (AUTO) 90.8 % (40.0-77.0); PLATELET COUNT (AUTO) 222 K/uL (130-400); RED BLOOD CELL COUNT(AUTO) 2.57 MIL/uL (4.00-5.50); RED CELL DISTRIBUTION WIDTH 18.2 % (11.0-15.5); WHITE BLOOD COUNT (AUTO) 10.4 K/uL (4.8-10.8)
[2019-08-20 05:12] LABS: ALBUMIN 1.4 g/dL (3.5-5.0); ASPARTATE AMINOTRANSFERASE 21 U/L (10-37); BILIRUBIN,TOTAL 0.4 mg/dL (0.2-1.0); CARBON DIOXIDE 24 mmol/L (21-32); CHLORIDE 96 mmol/L (101-111); CREATININE 2.6 mg/dL (0.5-1.5); GLOMERULAR FILTR. RATE CALC 19 mL/min (>60); GLUCOSE,RANDOM 197 mg/dL (70-105); PHOSPHORUS 5.9 mg/dL (2.5-4.9); SODIUM SERUM 132 mmol/L (136-145); TOTAL PROTEIN, SERUM 6.4 g/dL (6.0-8.3); UREA NITROGEN, BLOOD 70 mg/dL (7-18)
[2019-08-20 05:15] LABS: ALANINE AMINOTRANSFERASE < 6 U/L (12-78)
[2019-08-20] MEDS: MEROPENEM 1 GM VIAL IVP SCH ×2 (06:11→16:42)
[2019-08-20] MEDS: LINEZOLID 600 MG/ISO-OSM 300 ML IV SCH ×2 (06:11→16:42)
[2019-08-20] MEDS: INSULIN HUMULIN R 100 UNIT/ML 3ML SQ SCH ×5 (06:18→23:41)
[2019-08-20] MEDS: PANTOPRAZOLE 40 MG/VIAL IVP SCH (08:14)
[2019-08-20] MEDS: ENOXAPARIN SODIUM 40 MG/0.4 ML SYRINGE SQ SCH ×2 (08:14→20:33)
[2019-08-20] MEDS: FLUCONAZOLE 200 MG/NS 100 ML 100 ML IV SCH (08:14)
[2019-08-20] MEDS: FENTANYL 1000MCG+NS 100ML IV.SOLN IV SCH ×2 (08:56→18:21)
[2019-08-20] MEDS ORDERED: LACTULOSE 20 GM/30 ML UDCUP PEG PRN (09:15)
[2019-08-20] MEDS: SODIUM BICARB 8.4% 50ML SYRING 150 MEQ in DEXTROSE 5%-WATER 1,000 ML IV SCH ×4 (10:17→23:05)
--- NOTE | 2019-08-20 13:35 | NUR ---
RD FOLLOW UP Pt with respiratory failure, s/p intubation, severe septic shock, as per EMR. Pt continues with Tube feedings, Nepro @30mls/hr (1296 kcal, 58gm protein) at time of screen. Improving renal function. Recommend increase tube feeding rate to goal of 35mls/hr (1512 kcal, 68gm protein), as medically feasible. RD to continue to monitor. Addendum: 08/20/19 at [address] Amended: Links added.
[2019-08-20] MEDS ORDERED: SODIUM BICARB 50MEQ 50ML VIAL ONE (21:35)
[2019-08-20] MEDS: SODIUM BICARB 8.4% 50ML SYRINGE IVP SCH (23:06)
[2019-08-20] MEDS ORDERED: PROPOFOL 1000 MG/100 ML IV PRN (23:38)
[2019-08-21] VITALS (77 sets, daily range): BP systolic 76–133; BP diastolic 40–83
[2019-08-21] MEDS: FUROSEMIDE 10 MG/ML 4ML VIAL IV SCH ×2 (02:44→13:40)
[2019-08-21] MEDS: MEROPENEM 1 GM VIAL IVP SCH ×2 (04:25→17:35)
[2019-08-21] MEDS: LINEZOLID 600 MG/ISO-OSM 300 ML IV SCH ×2 (04:25→17:35)
[2019-08-21] MEDS: FENTANYL 1000MCG+NS 100ML IV.SOLN IV SCH ×3 (04:26→21:37)
--- NOTE | 2019-08-21 04:36 | NUR ---
Bite block in place, pt keeps biting on the oral airway causing some bleeding on the lips. Addendum: 08/21/19 at 0438 by SCOTT YI RT Amended: Links added.
[2019-08-21 05:26] LABS: HEMATOCRIT 25.1 % (36-48); MEAN CORPUSCULAR HEMOGLOBIN 31.2 pg (27.0-33.0); MEAN CORPUSCULAR HGB CONC 31.1 g/dL (32.0-36.0); MEAN CORPUSCULAR VOLUME 100.4 fL (79-99); NUCLEATED RED BLOOD CELLS 0.1 % (0.0-0.19); RED BLOOD CELL COUNT(AUTO) 2.5 MIL/uL (4.00-5.50); RED CELL DISTRIBUTION WIDTH 18.8 % (11.0-15.5); WHITE BLOOD COUNT (AUTO) 14.2 K/uL (4.8-10.8)
[2019-08-21 05:54] LABS: ALBUMIN 1.4 g/dL (3.5-5.0); ASPARTATE AMINOTRANSFERASE 21 U/L (10-37); BILIRUBIN,TOTAL 0.2 mg/dL (0.2-1.0); CARBON DIOXIDE 33 mmol/L (21-32); CHLORIDE 96 mmol/L (101-111); CREATININE 1.9 mg/dL (0.5-1.5); GLOMERULAR FILTR. RATE CALC 27 mL/min (>60); GLUCOSE,RANDOM 124 mg/dL (70-105); LACTATE DEHYDROGENASE 391 U/L (81-234); PHOSPHORUS 3.9 mg/dL (2.5-4.9); POTASSIUM 3.1 mmol/L (3.5-5.1); SODIUM SERUM 136 mmol/L (136-145); TOTAL PROTEIN, SERUM 6.2 g/dL (6.0-8.3); UREA NITROGEN, BLOOD 67 mg/dL (7-18)
[2019-08-21] MEDS: INSULIN HUMULIN R 100 UNIT/ML 3ML SQ SCH ×3 (06:00→18:00)
[2019-08-21 06:08] LABS: ALANINE AMINOTRANSFERASE < 6 U/L (12-78)
[2019-08-21] MEDS: POTASSIUM CHLORIDE 20MEQ/100ML 100 ML IV PRN ×2 (06:31→08:27)
[2019-08-21 07:05] LABS: ABG BASE EXCESS 7.7 mmol/L (-2.0-3.0); ABG HCO3 32.8 mmol/L (21.0-28.0); ABG PCO2 47 mmHg (32-45)
[2019-08-21 07:08] LABS: ABG BASE EXCESS 7.9 mmol/L (-2.0-3.0); ABG HCO3 32.1 mmol/L (21.0-28.0); ABG OXYGEN SATURATION 97.6 % (95.0-99.0); ABG PCO2 43 mmHg (32-45)
[2019-08-21] MEDS: PANTOPRAZOLE 40 MG/VIAL IVP SCH (08:26)
[2019-08-21] MEDS: FLUCONAZOLE 200 MG/NS 100 ML 100 ML IV SCH (08:27)
[2019-08-21] MEDS: SODIUM BICARB 8.4% 50ML SYRING 150 MEQ in DEXTROSE 5%-WATER 1,000 ML IV SCH (08:27)
[2019-08-21] MEDS: ENOXAPARIN SODIUM 40 MG/0.4 ML SYRINGE SQ SCH ×2 (08:28→21:10)
[2019-08-21] MEDS ORDERED: DEXAMETHASONE SOD PHOSPHATE 4 MG/ML 5ML VIAL IVP SCH (09:00)
[2019-08-21] MEDS: NOREPINEPHRINE 4MG/NS 250ML 250 ML IV SCH (10:32)
[2019-08-21] MEDS: MIDAZOLAM 50MG-0.9% NS 50ML 50 ML BAG IV SCH (13:49)
[2019-08-22] VITALS (37 sets, daily range): BP systolic 93–134; BP diastolic 40–87
[2019-08-22] MEDS: FUROSEMIDE 10 MG/ML 4ML VIAL IV SCH (00:41)
[2019-08-22] MEDS: LINEZOLID 600 MG/ISO-OSM 300 ML IV SCH ×2 (05:05→17:06)
[2019-08-22] MEDS: MEROPENEM 1 GM VIAL IVP SCH ×2 (05:05→17:06)
[2019-08-22] MEDS: NOREPINEPHRINE 4MG/NS 250ML 250 ML IV SCH ×2 (05:34→20:50)
[2019-08-22] MEDS: MIDAZOLAM 50MG-0.9% NS 50ML 50 ML BAG IV SCH ×2 (05:35→20:50)
[2019-08-22 06:00] LABS: BASOPHILS % (AUTO) 0.1 % (0.0-5.0); EOSINOPHILS % (AUTO) 0.7 % (0.0-8.0); HEMATOCRIT 24.5 % (36-48); LYMPHOCYTES % (AUTO) 22.3 % (21.0-51.0); MEAN CORPUSCULAR HEMOGLOBIN 32.8 pg (27.0-33.0); MEAN CORPUSCULAR HGB CONC 32.7 g/dL (32.0-36.0); MEAN CORPUSCULAR VOLUME 100.4 fL (79-99); MONOCYTES % (AUTO) 8.4 % (3.0-13.0); NEUTROPHILS % (AUTO) 67.4 % (40.0-77.0); NUCLEATED RED BLOOD CELLS 0.2 % (0.0-0.19); PLATELET COUNT (AUTO) 248 K/uL (130-400); RED BLOOD CELL COUNT(AUTO) 2.44 MIL/uL (4.00-5.50); RED CELL DISTRIBUTION WIDTH 18.9 % (11.0-15.5); WHITE BLOOD COUNT (AUTO) 11.7 K/uL (4.8-10.8)
[2019-08-22] MEDS: INSULIN HUMULIN R 100 UNIT/ML 3ML SQ SCH ×4 (06:00→17:29)
[2019-08-22 06:20] LABS: CREATININE 1.6 mg/dL (0.5-1.5); POTASSIUM 3.3 mmol/L (3.5-5.1)
[2019-08-22] MEDS: POTASSIUM CHLORIDE 20MEQ/100ML 100 ML IV PRN ×2 (06:27→08:22)
[2019-08-22] MEDS: PANTOPRAZOLE 40 MG/VIAL IVP SCH (08:21)
[2019-08-22] MEDS: ENOXAPARIN SODIUM 40 MG/0.4 ML SYRINGE SQ SCH (08:22)
[2019-08-22] MEDS: FLUCONAZOLE 200 MG/NS 100 ML 100 ML IV SCH (08:22)
[2019-08-22] MEDS ORDERED: FUROSEMIDE 10 MG/ML 4ML VIAL IV SCH (09:15)
[2019-08-22] MEDS: FENTANYL 1000MCG+NS 100ML IV.SOLN IV SCH ×2 (09:59→20:49)
--- NOTE | 2019-08-22 16:46 | NUR ---
pt on VENT Addendum: 08/22/19 at 1646 by MIRELLA LARA RT Amended: Links added.
[2019-08-22] MEDS: IPRATROPIUM 0.5 MG/2.5 ML INH IH SCH (18:36)
[2019-08-22] MEDS: ACETYLCYSTEINE 20% 200MG/ML 4ML VIAL IH SCH (18:36)
[2019-08-22] MEDS: POTASSIUM CHLORIDE 10% ELIXIR 20 MEQ/15 ML UDCUP PEG SCH (20:48)
[2019-08-23] VITALS (24 sets, daily range): BP systolic 94–135; BP diastolic 42–73
[2019-08-23] MEDS: ACETYLCYSTEINE 20% 200MG/ML 4ML VIAL IH SCH ×4 (00:42→19:13)
[2019-08-23] MEDS: IPRATROPIUM 0.5 MG/2.5 ML INH IH SCH ×4 (00:42→19:13)
[2019-08-23] MEDS ORDERED: DEXTROSE 50%-WATER 25 GM/50 ML VIAL ONE (01:09)
[2019-08-23 03:51] LABS: HEMATOCRIT 25.2 % (36-48); MEAN CORPUSCULAR HEMOGLOBIN 31.9 pg (27.0-33.0); MEAN CORPUSCULAR HGB CONC 32.1 g/dL (32.0-36.0); MEAN CORPUSCULAR VOLUME 99.2 fL (79-99); RED BLOOD CELL COUNT(AUTO) 2.54 MIL/uL (4.00-5.50); RED CELL DISTRIBUTION WIDTH 18.9 % (11.0-15.5); WHITE BLOOD COUNT (AUTO) 13.1 K/uL (4.8-10.8)
[2019-08-23 04:05] LABS: CREATININE 1.3 mg/dL (0.5-1.5); POTASSIUM 4.1 mmol/L (3.5-5.1)
[2019-08-23] MEDS: INSULIN HUMULIN R 100 UNIT/ML 3ML SQ SCH ×4 (06:00→16:48)
[2019-08-23] MEDS: FENTANYL 1000MCG+NS 100ML IV.SOLN IV SCH (06:26)
[2019-08-23] MEDS ORDERED: PHARMACY COMMUNICATION MISC SCH (07:30)
[2019-08-23] MEDS: PANTOPRAZOLE 40 MG/VIAL IVP SCH (08:36)
[2019-08-23] MEDS: POTASSIUM CHLORIDE 10% ELIXIR 20 MEQ/15 ML UDCUP PEG SCH (08:36)
[2019-08-23] MEDS: MEROPENEM 1 GM VIAL IVP SCH ×2 (08:36→16:51)
[2019-08-23] MEDS: FLUCONAZOLE 200 MG/NS 100 ML 100 ML IV SCH (08:37)
[2019-08-23] MEDS: ENOXAPARIN SODIUM 40 MG/0.4 ML SYRINGE SQ SCH (08:37)
[2019-08-23] MEDS: FUROSEMIDE 10 MG/ML 10ML VIAL IVP SCH ×2 (09:05→16:52)
[2019-08-23] MEDS: LINEZOLID 600 MG/ISO-OSM 300 ML IV SCH ×2 (11:28→16:52)
--- NOTE | 2019-08-23 12:59 | NUR ---
DC PLAN NO CALL BACK FROM FAMILY YET. PATIENT VENTED TRYING WEANING TRIALS. 08/20/2019 0005. FROM [facility]. Addendum: 08/23/19 at 1301 by REBA PHILLIP RN CM Amended: Links added.
[2019-08-24] VITALS (25 sets, daily range): BP systolic 88–143; BP diastolic 45–91
[2019-08-24] MEDS: ACETYLCYSTEINE 20% 200MG/ML 4ML VIAL IH SCH ×5 (00:20→23:18)
[2019-08-24] MEDS: IPRATROPIUM 0.5 MG/2.5 ML INH IH SCH ×5 (00:21→23:18)
[2019-08-24] MEDS: FUROSEMIDE 10 MG/ML 10ML VIAL IVP SCH ×3 (00:30→18:34)
[2019-08-24] MEDS ORDERED: FUROSEMIDE 10 MG/ML 4ML VIAL ONE (01:25)
[2019-08-24] MEDS: POTASSIUM CHLORIDE 10% ELIXIR 20 MEQ/15 ML UDCUP PEG SCH ×3 (01:36→21:12)
[2019-08-24 04:36] LABS: MAGNESIUM 1.8 mg/dL (1.80-2.40); PHOSPHORUS 3.3 mg/dL (2.5-4.9); POTASSIUM 4.4 mmol/L (3.5-5.1)
[2019-08-24] MEDS: LINEZOLID 600 MG/ISO-OSM 300 ML IV SCH ×2 (05:06→18:35)
[2019-08-24] MEDS: MEROPENEM 1 GM VIAL IVP SCH ×2 (05:42→18:34)
[2019-08-24] MEDS: INSULIN HUMULIN R 100 UNIT/ML 3ML SQ SCH ×4 (06:00→18:00)
[2019-08-24 06:21] LABS: HEMATOCRIT 23.8 % (36-48); MEAN CORPUSCULAR HEMOGLOBIN 32.4 pg (27.0-33.0); MEAN CORPUSCULAR HGB CONC 32.4 g/dL (32.0-36.0); RED BLOOD CELL COUNT(AUTO) 2.38 MIL/uL (4.00-5.50); RED CELL DISTRIBUTION WIDTH 18.9 % (11.0-15.5); WHITE BLOOD COUNT (AUTO) 13.1 K/uL (4.8-10.8)
[2019-08-24 10:56] LABS: ABG BASE EXCESS 14.6 mmol/L (-2.0-3.0); ABG HCO3 37.1 mmol/L (21.0-28.0); ABG OXYGEN SATURATION 99.4 % (95.0-99.0); ABG PCO2 38 mmHg (32-45)
[2019-08-24] MEDS ORDERED: QUETIAPINE FUMARATE 25 MG TAB PEG PRN (11:00)
[2019-08-24] MEDS: FLUCONAZOLE 200 MG/NS 100 ML 100 ML IV SCH (11:03)
[2019-08-24] MEDS: MAGNESIUM 2GM PREMIX 50ML 50 ML IV PRN (11:05)
[2019-08-24] MEDS: PANTOPRAZOLE 40 MG/VIAL IVP SCH (11:09)
[2019-08-24] MEDS: ENOXAPARIN SODIUM 40 MG/0.4 ML SYRINGE SQ SCH (11:10)
--- NOTE | 2019-08-24 11:30 | NUR ---
[place] PLAN PATIENT VENTED IN ICU. NOT STABLE. CM WILL CONTINUE TO FOLLOW. Addendum: 08/24/19 at 1130 by REBA PHILLIP RN CM Amended: Links added.
--- NOTE | 2019-08-24 15:46 | NUR ---
LE FOLLOW UP NOTE Pt continues with Tube Feeding. No report of GI distress. Pt LBM 08/19/19. BLE 2+, Generalized 2+ edema. Recommend to continue tube feeding Nepro at Goal Rate (35mls/hr) Recommend stool softener/laxative as medically feasible. Addendum: 08/24/19 at [address] Amended: Links added.
[2019-08-24] MEDS: NYSTATIN 15 GM POWDER TP SCH (21:12)
[2019-08-25] VITALS (25 sets, daily range): BP systolic 100–139; BP diastolic 50–92
[2019-08-25] MEDS: LINEZOLID 600 MG/ISO-OSM 300 ML IV SCH ×2 (05:45→18:45)
[2019-08-25] MEDS: INSULIN HUMULIN R 100 UNIT/ML 3ML SQ SCH ×4 (06:00→18:00)
[2019-08-25 06:08] LABS: BASOPHILS % (AUTO) 0.1 % (0.0-5.0); EOSINOPHILS % (AUTO) 3.8 % (0.0-8.0); HEMATOCRIT 24.3 % (36-48); LYMPHOCYTES % (AUTO) 13.3 % (21.0-51.0); MEAN CORPUSCULAR HEMOGLOBIN 32.2 pg (27.0-33.0); MEAN CORPUSCULAR HGB CONC 31.3 g/dL (32.0-36.0); MONOCYTES % (AUTO) 4.3 % (3.0-13.0); NEUTROPHILS % (AUTO) 77.6 % (40.0-77.0); PLATELET COUNT (AUTO) 169 K/uL (130-400); RED BLOOD CELL COUNT(AUTO) 2.36 MIL/uL (4.00-5.50); WHITE BLOOD COUNT (AUTO) 13.4 K/uL (4.8-10.8)
[2019-08-25] MEDS: MEROPENEM 1 GM VIAL IVP SCH ×2 (06:15→18:45)
[2019-08-25 06:44] LABS: B-TYPE NATRIURETIC PEPTIDE 722 pg/mL (0-100)
[2019-08-25] MEDS: ACETYLCYSTEINE 20% 200MG/ML 4ML VIAL IH SCH ×2 (06:48→11:12)
[2019-08-25] MEDS: IPRATROPIUM 0.5 MG/2.5 ML INH IH SCH ×3 (06:48→19:39)
[2019-08-25 07:32] LABS: CREATININE 1.1 mg/dL (0.5-1.5)
[2019-08-25 07:47] LABS: ALBUMIN 1.5 g/dL (3.5-5.0); BILIRUBIN,TOTAL 0.3 mg/dL (0.2-1.0); TOTAL PROTEIN, SERUM 5.8 g/dL (6.0-8.3)
[2019-08-25 09:02] LABS: ABG BASE EXCESS 11.3 mmol/L (-2.0-3.0); ABG HCO3 34.6 mmol/L (21.0-28.0); ABG OXYGEN SATURATION 98.5 % (95.0-99.0); ABG PCO2 40 mmHg (32-45)
--- NOTE | 2019-08-25 09:30 | NUR ---
CPAP TRIALS CPAP TRIALS STARTED AT 929.
[2019-08-25] MEDS: PANTOPRAZOLE 40 MG/VIAL IVP SCH (09:56)
[2019-08-25] MEDS: NYSTATIN 15 GM POWDER TP SCH ×2 (09:56→22:19)
[2019-08-25] MEDS: FLUCONAZOLE 200 MG/NS 100 ML 100 ML IV SCH (09:56)
[2019-08-25] MEDS: POTASSIUM CHLORIDE 10% ELIXIR 20 MEQ/15 ML UDCUP PEG SCH ×2 (09:57→21:55)
[2019-08-25] MEDS: ENOXAPARIN SODIUM 40 MG/0.4 ML SYRINGE SQ SCH (09:58)
--- NOTE | 2019-08-25 12:00 | NUR ---
DR. DERAS AT BEDSIDE. DR. DERAS AT BEDSIDE, INSERTED 18G PIV TO RIGHT ARM. ORDER FOR CTA OF CHEST WAS PLACED. PLASTICS HEAT WELDER WAS NOTIFIED OF NEW ORDER. PATIENT FEEDINGS ON HOLD AT 1200. NPO FOR 2 HRS MINIMUM. ACCORDING TO WATER TAXI BOAT MATE, HE WILL SEND FOR PATIENT AROUND 1400.
[2019-08-25 12:07] LABS: ABG BASE EXCESS 11.5 mmol/L (-2.0-3.0); ABG HCO3 35.6 mmol/L (21.0-28.0); ABG OXYGEN SATURATION 96.2 % (95.0-99.0); ABG PCO2 44 mmHg (32-45)
--- NOTE | 2019-08-25 12:20 | NUR ---
PATIENT EXTUBATED AT 1220. Addendum: 08/25/19 at 1254 by SHON DAVILA RN PATIENT PLACED ON AEROSOL MASK AFTER EXTUBATION, PATIENT SATTING 97%.
[2019-08-25] MEDS ORDERED: IOHEXOL-350 75 ML VIAL IV ONE (15:28)
--- NOTE | 2019-08-25 18:45 | NUR ---
TRANSFER Transferred, monitored, by bed to room 216.
[2019-08-26] VITALS (26 sets, daily range): BP systolic 87–167; BP diastolic 37–110
[2019-08-26] MEDS: IPRATROPIUM 0.5 MG/2.5 ML INH IH SCH ×5 (00:29→23:21)
[2019-08-26] MEDS: INSULIN HUMULIN R 100 UNIT/ML 3ML SQ SCH ×4 (06:00→18:00)
[2019-08-26] MEDS: MEROPENEM 1 GM VIAL IVP SCH ×2 (06:16→16:38)
[2019-08-26] MEDS: LINEZOLID 600 MG/ISO-OSM 300 ML IV SCH ×2 (06:17→16:38)
[2019-08-26 06:40] LABS: HEMATOCRIT 26.2 % (36-48); MEAN CORPUSCULAR HGB CONC 30.5 g/dL (32.0-36.0); MEAN CORPUSCULAR VOLUME 104.8 fL (79-99); RED BLOOD CELL COUNT(AUTO) 2.5 MIL/uL (4.00-5.50); RED CELL DISTRIBUTION WIDTH 18.9 % (11.0-15.5); WHITE BLOOD COUNT (AUTO) 14.9 K/uL (4.8-10.8)
[2019-08-26 07:09] LABS: ALBUMIN 1.5 g/dL (3.5-5.0); BILIRUBIN,TOTAL 0.3 mg/dL (0.2-1.0); CREATININE 0.9 mg/dL (0.5-1.5); MAGNESIUM 1.8 mg/dL (1.80-2.40); PHOSPHORUS 3.3 mg/dL (2.5-4.9); POTASSIUM 4.1 mmol/L (3.5-5.1); THYROID STIMULATING HORMONE 22.21 uIU/mL (0.36-3.74)
--- NOTE | 2019-08-26 07:58 | NUR ---
[facility] CONSULT PATIENT ASSESSED REQUESTED: [facility] RECOMMENDATIONS SUBMITTED AND REPORT GIVEN TO PATIENT'S NURSE. Addendum: 08/26/19 at 0800 by AMY GANDHI LVN Amended: Links added.
[2019-08-26 08:40] LABS: PARTIAL THROMBOPLASTIN TIME 30.6 SEC (26.3-35.5); PROTHROMBIN TIME 10.8 SEC (9.6-11.6)
[2019-08-26] MEDS: PANTOPRAZOLE 40 MG/VIAL IVP SCH (09:38)
[2019-08-26] MEDS: FLUCONAZOLE 200 MG/NS 100 ML 100 ML IV SCH (09:38)
[2019-08-26] MEDS: POTASSIUM CHLORIDE 10% ELIXIR 20 MEQ/15 ML UDCUP PEG SCH ×2 (09:39→21:00)
[2019-08-26] MEDS: ENOXAPARIN SODIUM 40 MG/0.4 ML SYRINGE SQ SCH (09:40)
[2019-08-26] MEDS: NYSTATIN 15 GM POWDER TP SCH ×2 (09:40→21:18)
--- NOTE | 2019-08-26 12:28 | NUR ---
[facility] GRANULATOR TENDER HERE AND ASSESSING PATIENT AND ORDERS NOTED.
--- NOTE | 2019-08-26 14:04 | NUR ---
DC PLAN PATIENT IS IMPROVING. CALLED SISTER SPOKE TO HER REGARDING DC PLAN. A NEW RECOMMENDATION IS FOR [facility]. SISTER GAVE ANA M FOR [facility]. EXPLAINED PROCESS. PNDG INFO TO BE SENT. Addendum: 08/26/19 at 1407 by REBA PHILLIP RN CM Amended: Links added.
--- NOTE | 2019-08-26 15:15 | NUR ---
DC PLAN PACKET SENT TO [facility]. MACY MILLIGAN. PENDING INSURANCE AND DR. GAEL DÍAZ'S. Addendum: 08/26/19 at 1516 by REBA PHILLIP RN CM Amended: Links added.
--- NOTE | 2019-08-26 17:00 | NUR ---
SPOKE WITH SISTER NOAH LOPEZ AND UPDATED HER STATUS AND PLAN OF CARE. SISTER WAS ABLE TO HELP NURSING STAFF FILL OUT THE DATABASE. 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 GOES TO [place] AND HELPS THE VERY POOR. SISTER ALSO STATES THAT THE PATIENT HAS A SON AND DAUGHTER IN LAW. THE SON IS ALWAYS OUT OF TOWN AND IS PRESENTLY IN [place], APPARENTLY HE WORKS IN [employer], DAUGHTER WORKS 7 DAYS A WEEK AND BOTH ARE NOT AVAILABLE TO HELP WITH HER CARE OR INFORMATION. SON HAD REQUESTED FOR SISTER TO HANDLE AND PHYSICAL OR MEDICAL NEEDS FOR PATIENT. SISTER VERY INFORMATIVE AND REFERRED NURSING STAFF TO PATIENT'S PRIMARY PHYSICIAN DR. Marlo THOMAS FROM [place].
[2019-08-26 20:57] LABS: ABG BASE EXCESS 6.3 mmol/L (-2.0-3.0); ABG HCO3 33.2 mmol/L (21.0-28.0); ABG OXYGEN SATURATION 98.6 % (95.0-99.0); ABG PCO2 57 mmHg (32-45)
[2019-08-27] VITALS (25 sets, daily range): BP systolic 84–126; BP diastolic 37–81
[2019-08-27 04:15] LABS: BASOPHILS % (AUTO) 0.2 % (0.0-5.0); EOSINOPHILS % (AUTO) 3.1 % (0.0-8.0); HEMATOCRIT 25.2 % (36-48); LYMPHOCYTES % (AUTO) 12.3 % (21.0-51.0); MEAN CORPUSCULAR HEMOGLOBIN 32.4 pg (27.0-33.0); MEAN CORPUSCULAR HGB CONC 30.6 g/dL (32.0-36.0); MEAN CORPUSCULAR VOLUME 105.9 fL (79-99); MONOCYTES % (AUTO) 4.8 % (3.0-13.0); PLATELET COUNT (AUTO) 167 K/uL (130-400); RED BLOOD CELL COUNT(AUTO) 2.38 MIL/uL (4.00-5.50); RED CELL DISTRIBUTION WIDTH 18.8 % (11.0-15.5); WHITE BLOOD COUNT (AUTO) 14.7 K/uL (4.8-10.8)
[2019-08-27 04:31] LABS: ALBUMIN 1.5 g/dL (3.5-5.0); ASPARTATE AMINOTRANSFERASE 30 U/L (10-37); BILIRUBIN,TOTAL 0.3 mg/dL (0.2-1.0); CARBON DIOXIDE 35 mmol/L (21-32); CHLORIDE 100 mmol/L (101-111); CREATININE 0.8 mg/dL (0.5-1.5); GLOMERULAR FILTR. RATE CALC 74 mL/min (>60); POTASSIUM 4.1 mmol/L (3.5-5.1); SODIUM SERUM 138 mmol/L (136-145); TOTAL PROTEIN, SERUM 5.9 g/dL (6.0-8.3); UREA NITROGEN, BLOOD 20 mg/dL (7-18)
[2019-08-27 04:47] LABS: ALANINE AMINOTRANSFERASE 7 U/L (12-78)
[2019-08-27 04:54] LABS: AMMONIA < 10 umol/L (11-32)
[2019-08-27 05:05] LABS: GLUCOSE,RANDOM 101 mg/dL (70-105)
[2019-08-27] MEDS: INSULIN HUMULIN R 100 UNIT/ML 3ML SQ SCH ×5 (05:36→23:54)
[2019-08-27] MEDS: MEROPENEM 1 GM VIAL IVP SCH ×2 (05:36→20:37)
[2019-08-27] MEDS: LINEZOLID 600 MG/ISO-OSM 300 ML IV SCH ×2 (05:36→21:22)
[2019-08-27] MEDS: IPRATROPIUM 0.5 MG/2.5 ML INH IH SCH ×4 (06:45→23:41)
[2019-08-27] MEDS: FLUCONAZOLE 200 MG/NS 100 ML 100 ML IV SCH (08:21)
[2019-08-27] MEDS: PANTOPRAZOLE 40 MG/VIAL IVP SCH (08:21)
[2019-08-27] MEDS: ENOXAPARIN SODIUM 40 MG/0.4 ML SYRINGE SQ SCH (08:23)
[2019-08-27] MEDS: POTASSIUM CHLORIDE 10% ELIXIR 20 MEQ/15 ML UDCUP PEG SCH ×2 (08:25→21:21)
[2019-08-27] MEDS: NYSTATIN 15 GM POWDER TP SCH ×2 (08:26→21:22)
--- NOTE | 2019-08-27 08:48 | NUR ---
RD UPDATE - CHANGE TUBE FEEDING FORMULA RD notified of loose stools as per RN. Pt also with resolved renal function. Pt with antibiotic. Recommend change tube feeding formula to Jevity 1.5. Recommend Initiate Jevity 1.5 @20mls/hr for first 5 hours. Increase rate as tolerated by 5 ml every 5 hours to goal Goal rate: 45mls/hr to provide 1620 kcal, 69gm protein, 821mL free H2O Recommended flushes: 120ml Q6hrs recs faxed to ext. [phone] - 2nd floor Pod C. RN notified. RD to continue to monitor.
[2019-08-27] MEDS: FUROSEMIDE 10 MG/ML 2ML VIAL IV SCH ×2 (12:17→21:22)
--- NOTE | 2019-08-27 13:41 | NUR ---
DC PLAN SENT UPDATES TO LT[facility] PENDING INSURANCE. [facility] FORMS IN CHART. Addendum: 08/27/19 at 1342 by REBA PHILLIP RN CM Amended: Links added.
[2019-08-27 15:06] LABS: ABG BASE EXCESS 8.6 mmol/L (-2.0-3.0); ABG HCO3 33.3 mmol/L (21.0-28.0); ABG PCO2 46 mmHg (32-45)
--- NOTE | 2019-08-27 20:24 | NUR ---
Dr. Sutton called and informed him that Zyvox and Merrem have been discontinued. MD ordered to restart medication.
[2019-08-28] VITALS (12 sets, daily range): BP systolic 100–119; BP diastolic 58–80
[2019-08-28] MEDS: FUROSEMIDE 10 MG/ML 2ML VIAL IV SCH ×2 (04:24→14:33)
[2019-08-28] MEDS: INSULIN HUMULIN R 100 UNIT/ML 3ML SQ SCH ×4 (06:00→23:20)
[2019-08-28] MEDS: IPRATROPIUM 0.5 MG/2.5 ML INH IH SCH ×4 (06:13→23:21)
[2019-08-28 06:14] LABS: BASOPHILS % (AUTO) 0.2 % (0.0-5.0); EOSINOPHILS % (AUTO) 6.4 % (0.0-8.0); HEMATOCRIT 23.6 % (36-48); LYMPHOCYTES % (AUTO) 14.8 % (21.0-51.0); MEAN CORPUSCULAR HEMOGLOBIN 31.7 pg (27.0-33.0); MEAN CORPUSCULAR HGB CONC 30.5 g/dL (32.0-36.0); MONOCYTES % (AUTO) 6.9 % (3.0-13.0); NEUTROPHILS % (AUTO) 71.2 % (40.0-77.0); PLATELET COUNT (AUTO) 146 K/uL (130-400); RED BLOOD CELL COUNT(AUTO) 2.27 MIL/uL (4.00-5.50); RED CELL DISTRIBUTION WIDTH 18.8 % (11.0-15.5); WHITE BLOOD COUNT (AUTO) 10.9 K/uL (4.8-10.8)
[2019-08-28 06:26] LABS: B-TYPE NATRIURETIC PEPTIDE 719 pg/mL (0-100)
[2019-08-28] MEDS: LEVOTHYROXINE 125 MCG TABLET PO SCH (07:11)
[2019-08-28 07:43] LABS: AMMONIA < 3 umol/L (11-32)
[2019-08-28 08:00] LABS: ALANINE AMINOTRANSFERASE 13 U/L (12-78); ALBUMIN 1.6 g/dL (3.5-5.0); ASPARTATE AMINOTRANSFERASE 29 U/L (10-37); BILIRUBIN,TOTAL 0.3 mg/dL (0.2-1.0); CARBON DIOXIDE 35 mmol/L (21-32); CHLORIDE 100 mmol/L (101-111); CREATININE 0.8 mg/dL (0.5-1.5); GLOMERULAR FILTR. RATE CALC 74 mL/min (>60); GLUCOSE,RANDOM 113 mg/dL (70-105); PHOSPHORUS 2.8 mg/dL (2.5-4.9); POTASSIUM 3.7 mmol/L (3.5-5.1); SODIUM SERUM 138 mmol/L (136-145); TOTAL PROTEIN, SERUM 5.7 g/dL (6.0-8.3); UREA NITROGEN, BLOOD 16 mg/dL (7-18)
[2019-08-28] MEDS: POTASSIUM CHLORIDE 10% ELIXIR 20 MEQ/15 ML UDCUP PEG SCH ×2 (08:07→20:29)
[2019-08-28] MEDS: LINEZOLID 600 MG/ISO-OSM 300 ML IV SCH ×2 (08:07→20:29)
[2019-08-28] MEDS: MEROPENEM 1 GM VIAL IVP SCH ×2 (08:09→20:29)
[2019-08-28] MEDS: ENOXAPARIN SODIUM 40 MG/0.4 ML SYRINGE SQ SCH (08:10)
[2019-08-28] MEDS: FLUCONAZOLE 200 MG/NS 100 ML 100 ML IV SCH (08:10)
[2019-08-28] MEDS: PANTOPRAZOLE 40 MG/VIAL IVP SCH (08:10)
[2019-08-28] MEDS: NYSTATIN 15 GM POWDER TP SCH ×2 (08:11→20:29)
[2019-08-29] VITALS (25 sets, daily range): BP systolic 99–168; BP diastolic 47–101
[2019-08-29 04:01] LABS: BASOPHILS % (AUTO) 0.2 % (0.0-5.0); EOSINOPHILS % (AUTO) 4.2 % (0.0-8.0); HEMATOCRIT 25.1 % (36-48); LYMPHOCYTES % (AUTO) 14.1 % (21.0-51.0); MEAN CORPUSCULAR HEMOGLOBIN 31.8 pg (27.0-33.0); MEAN CORPUSCULAR HGB CONC 30.3 g/dL (32.0-36.0); MONOCYTES % (AUTO) 8.7 % (3.0-13.0); NEUTROPHILS % (AUTO) 72.3 % (40.0-77.0); PLATELET COUNT (AUTO) 170 K/uL (130-400); RED BLOOD CELL COUNT(AUTO) 2.39 MIL/uL (4.00-5.50); RED CELL DISTRIBUTION WIDTH 18.7 % (11.0-15.5); WHITE BLOOD COUNT (AUTO) 13.2 K/uL (4.8-10.8)
[2019-08-29 04:24] LABS: B-TYPE NATRIURETIC PEPTIDE 1040 pg/mL (0-100)
[2019-08-29 04:50] LABS: ALANINE AMINOTRANSFERASE 10 U/L (12-78); ALBUMIN 1.6 g/dL (3.5-5.0); ASPARTATE AMINOTRANSFERASE 28 U/L (10-37); BILIRUBIN,TOTAL 0.3 mg/dL (0.2-1.0); CARBON DIOXIDE 34 mmol/L (21-32); CHLORIDE 100 mmol/L (101-111); CREATININE 0.8 mg/dL (0.5-1.5); GLOMERULAR FILTR. RATE CALC 74 mL/min (>60); GLUCOSE,RANDOM 133 mg/dL (70-105); POTASSIUM 4.4 mmol/L (3.5-5.1); SODIUM SERUM 137 mmol/L (136-145); UREA NITROGEN, BLOOD 15 mg/dL (7-18)
[2019-08-29 04:56] LABS: AMMONIA < 10 umol/L (11-32)
[2019-08-29] MEDS: LEVOTHYROXINE 125 MCG TABLET PO SCH (05:57)
[2019-08-29] MEDS: INSULIN HUMULIN R 100 UNIT/ML 3ML SQ SCH ×3 (05:57→17:33)
[2019-08-29] MEDS: IPRATROPIUM 0.5 MG/2.5 ML INH IH SCH ×4 (06:15→23:42)
[2019-08-29 08:25] LABS: ABG BASE EXCESS 6.6 mmol/L (-2.0-3.0); ABG OXYGEN SATURATION 95.5 % (95.0-99.0); ABG PCO2 53 mmHg (32-45)
[2019-08-29] MEDS: PANTOPRAZOLE 40 MG/VIAL IVP SCH (08:54)
[2019-08-29] MEDS: FLUCONAZOLE 200 MG/NS 100 ML 100 ML IV SCH (08:55)
[2019-08-29] MEDS: POTASSIUM CHLORIDE 10% ELIXIR 20 MEQ/15 ML UDCUP PEG SCH ×2 (08:55→21:10)
[2019-08-29] MEDS: MEROPENEM 1 GM VIAL IVP SCH ×2 (08:55→19:48)
[2019-08-29] MEDS: LINEZOLID 600 MG/ISO-OSM 300 ML IV SCH ×2 (08:55→19:48)
[2019-08-29] MEDS: ENOXAPARIN SODIUM 40 MG/0.4 ML SYRINGE SQ SCH (08:57)
[2019-08-29] MEDS: NYSTATIN 15 GM POWDER TP SCH ×2 (08:57→21:10)
--- NOTE | 2019-08-29 09:50 | NUR ---
[facility] updated on pt status at 0910 Addendum: 08/29/19 at 1537 by VI OSORIO RN ENTERED IN ERROR, WRONG PATIENT
--- NOTE | 2019-08-29 09:51 | NUR ---
Withdrawal of care decision Pt's adult children decided to proceed with withdrawal of care at 0905. Appropriate paperwork completed and signed. Addendum: 08/29/19 at 1536 by VI OSORIO RN ENTERED IN ERROR, WRONG PATIENT
[2019-08-29] MEDS ORDERED: FUROSEMIDE 10 MG/ML 10ML VIAL IVP SCH (14:00)
[2019-08-29] MEDS: FUROSEMIDE 10 MG/ML 4ML VIAL IV SCH (17:33)
[2019-08-30] VITALS (48 sets, daily range): BP systolic 70–163; BP diastolic 33–112
[2019-08-30] MEDS: FUROSEMIDE 10 MG/ML 4ML VIAL IV SCH ×4 (00:45→21:18)
--- NOTE | 2019-08-30 04:09 | NUR ---
FIO2 INCREASED TO 70% AFTER BATH/ACTIVITY.
[2019-08-30 04:23] LABS: MEAN CORPUSCULAR HGB CONC 30.7 g/dL (32.0-36.0); MEAN CORPUSCULAR VOLUME 104.2 fL (79-99); RED BLOOD CELL COUNT(AUTO) 2.59 MIL/uL (4.00-5.50); RED CELL DISTRIBUTION WIDTH 18.9 % (11.0-15.5); WHITE BLOOD COUNT (AUTO) 20.3 K/uL (4.8-10.8)
[2019-08-30 04:40] LABS: CREATININE 0.8 mg/dL (0.5-1.5); MAGNESIUM 1.9 mg/dL (1.80-2.40); POTASSIUM 4.4 mmol/L (3.5-5.1)
[2019-08-30 04:54] LABS: ABG BASE EXCESS 9.4 mmol/L (-2.0-3.0); ABG HCO3 34.4 mmol/L (21.0-28.0); ABG OXYGEN SATURATION 93.3 % (95.0-99.0); ABG PCO2 47 mmHg (32-45)
[2019-08-30] MEDS: MAGNESIUM 2GM PREMIX 50ML 50 ML IV PRN (05:09)
[2019-08-30] MEDS: INSULIN HUMULIN R 100 UNIT/ML 3ML SQ SCH ×4 (05:51→18:00)
[2019-08-30] MEDS: LEVOTHYROXINE 125 MCG TABLET PO SCH (05:53)
[2019-08-30] MEDS: IPRATROPIUM 0.5 MG/2.5 ML INH IH SCH ×4 (06:20→23:03)
[2019-08-30] MEDS: ENOXAPARIN SODIUM 40 MG/0.4 ML SYRINGE SQ SCH (07:25)
[2019-08-30] MEDS: LINEZOLID 600 MG/ISO-OSM 300 ML IV SCH ×2 (07:44→20:46)
[2019-08-30] MEDS: MEROPENEM 1 GM VIAL IVP SCH ×2 (07:44→20:46)
[2019-08-30] MEDS: FLUCONAZOLE 200 MG/NS 100 ML 100 ML IV SCH (08:42)
[2019-08-30] MEDS: NYSTATIN 15 GM POWDER TP SCH ×2 (08:42→20:48)
[2019-08-30] MEDS: POTASSIUM CHLORIDE 10% ELIXIR 20 MEQ/15 ML UDCUP PEG SCH ×2 (08:42→20:47)
[2019-08-30] MEDS: PANTOPRAZOLE 40 MG/VIAL IVP SCH (08:42)
--- NOTE | 2019-08-30 11:21 | NUR ---
DR. MARQUEZ IN TO SEE PT. PLAN OF CARE DISCUSSED.
--- NOTE | 2019-08-30 12:41 | NUR ---
DC PLAN SPOKE TO MARGE AT [facility] [place] SAID STILL PENDING AUTH. SENT CLINICAL UPDATES. Addendum: 08/30/19 at 1242 by REBA PHILLIP RN CM Amended: Links added.
[2019-08-30] MEDS ORDERED: SODIUM CHLORIDE 0.9% 500ML 500 ML IV ONE (12:51)
[2019-08-30] MEDS: METHYLPREDNISOLONE SOD SUCC 40MG/ML 1ML IVP SCH ×2 (12:52→20:47)
[2019-08-30] MEDS ORDERED: LIDOCAINE HCL 1% 20 ML VIAL ONE (13:30)
--- NOTE | 2019-08-30 13:55 | NUR ---
DR. FERRERA AT BEDSIDE TO SEE PT. PLAN OF CARE DISCUSSED. NOTIFIED OF LAB/ABG/CXR RESULTS. LEFT 10 FR CHEST TUBE INSERTED AT BEDSIDE, 700 ML OF SEROUS FLUID DRAINED, CHEST TUBE CONNECTED TO ATRIUM TO WATER SEAL. CXR COMPLETED. LASIX DRIP STARTED AT 10 MG/HR ORDERED. PT STATES BREATHING IMPROVED.
[2019-08-30] MEDS: FUROSEMIDE 100 MG in SODIUM CHLORIDE 0.9% 100 ML IV SCH ×2 (14:13→20:50)
--- NOTE | 2019-08-30 16:33 | NUR ---
PT CONTINUES TACHYPNEIC RR 30-40S , APPEARS TIRED. DR. FERRERA AT BEDSIDE, PT INTUBATED WITH ETT SIZE 8, 24 AT LIPS, PLACED ON PRESCRIBED VENT SETTINGS. MD PROCEEDED WITH RIGHT CHEST TUBE PLACEMENT 10 FR WITH SEROSANGUINEOUS OUTPUT CONNECTED TO ATRIUM AND PLACED TO WATER SEAL. . PT NOTED WITH PINK FROTHY SECRETIONS, SISTER CALLED OVER THE PHONE AND CONSENT OBTAINED FOR BEDSIDE BRONCHOSCOPY AND CENTRAL LINE PLACEMENT. PT STARTED ON LEVOPHED/FENTANYL AND VERSED ORDERED. MD ATTEMPTED CALL SISTER FOR UPDATE BUT HAD NO ANSWER. VS NOTED ON COMPUTER.
[2019-08-30] MEDS ORDERED: FENTANYL CITRATE PF 0.05 MG/ML 1,000 MCG in SODIUM CHLORIDE 0.9% 100 ML IVPB SCH (17:15)
[2019-08-30] MEDS ORDERED: PHARMACY COMMUNICATION MISC SCH (17:45)
[2019-08-30 18:00] LABS: ABG BASE EXCESS 7.7 mmol/L (-2.0-3.0); ABG HCO3 30.9 mmol/L (21.0-28.0); ABG OXYGEN SATURATION 97.4 % (95.0-99.0); ABG PCO2 38 mmHg (32-45)
[2019-08-30] MEDS ORDERED: CISATRACURIUM BESYLATE 100 MG in SODIUM CHLORIDE 0.9% 100 ML IV SCH (18:00)
[2019-08-30] MEDS: FENTANYL 1000MCG+NS 100ML IV.SOLN IV SCH ×2 (18:23→23:58)
[2019-08-30] MEDS: NOREPINEPHRINE 4MG/NS 250ML 250 ML IV SCH (18:24)
[2019-08-30] MEDS: MIDAZOLAM 50MG-0.9% NS 50ML 50 ML BAG IV SCH ×2 (18:25→20:08)
[2019-08-31] VITALS (23 sets, daily range): BP systolic 100–136; BP diastolic 64–91
[2019-08-31] MEDS: FUROSEMIDE 100 MG in SODIUM CHLORIDE 0.9% 100 ML IV SCH ×3 (00:34→21:56)
[2019-08-31] MEDS: MIDAZOLAM 50MG-0.9% NS 50ML 50 ML BAG IV SCH ×3 (02:04→21:42)
[2019-08-31 04:26] LABS: ABG BASE EXCESS 1.5 mmol/L (-2.0-3.0); ABG HCO3 20.7 mmol/L (21.0-28.0); ABG OXYGEN SATURATION 99.8 % (95.0-99.0); ABG PCO2 21 mmHg (32-45)
[2019-08-31 05:33] LABS: BASOPHILS % (AUTO) 0.2 % (0.0-5.0); HEMATOCRIT 22.5 % (36-48); LYMPHOCYTES % (AUTO) 7.3 % (21.0-51.0); MEAN CORPUSCULAR HGB CONC 31.6 g/dL (32.0-36.0); MEAN CORPUSCULAR VOLUME 101.4 fL (79-99); MONOCYTES % (AUTO) 3.6 % (3.0-13.0); NEUTROPHILS % (AUTO) 88.5 % (40.0-77.0); PLATELET COUNT (AUTO) 166 K/uL (130-400); RED BLOOD CELL COUNT(AUTO) 2.22 MIL/uL (4.00-5.50); RED CELL DISTRIBUTION WIDTH 18.5 % (11.0-15.5); WHITE BLOOD COUNT (AUTO) 12.1 K/uL (4.8-10.8)
[2019-08-31 05:48] LABS: ALBUMIN 1.5 g/dL (3.5-5.0); BILIRUBIN,TOTAL 0.4 mg/dL (0.2-1.0); POTASSIUM 4.3 mmol/L (3.5-5.1)
[2019-08-31 05:49] LABS: INR 1.03 (0.85-1.15); PARTIAL THROMBOPLASTIN TIME 29.9 SEC (26.3-35.5); PROTHROMBIN TIME 11.1 SEC (9.6-11.6)
[2019-08-31 05:50] LABS: B-TYPE NATRIURETIC PEPTIDE 790 pg/mL (0-100)
[2019-08-31] MEDS: INSULIN HUMULIN R 100 UNIT/ML 3ML SQ SCH ×5 (06:00→23:46)
[2019-08-31] MEDS: IPRATROPIUM 0.5 MG/2.5 ML INH IH SCH ×4 (06:05→23:00)
[2019-08-31] MEDS: LEVOTHYROXINE 125 MCG TABLET PO SCH (06:23)
[2019-08-31] MEDS: FENTANYL 1000MCG+NS 100ML IV.SOLN IV SCH ×2 (06:23→23:53)
[2019-08-31] MEDS: METHYLPREDNISOLONE SOD SUCC 40MG/ML 1ML IVP SCH ×3 (06:36→19:47)
[2019-08-31] MEDS: LINEZOLID 600 MG/ISO-OSM 300 ML IV SCH ×2 (08:32→19:47)
[2019-08-31] MEDS: PANTOPRAZOLE 40 MG/VIAL IVP SCH (08:32)
[2019-08-31] MEDS: FLUCONAZOLE 200 MG/NS 100 ML 100 ML IV SCH (08:32)
[2019-08-31] MEDS: MEROPENEM 1 GM VIAL IVP SCH ×2 (08:32→19:47)
[2019-08-31] MEDS: NOREPINEPHRINE 4MG/NS 250ML 250 ML IV SCH (08:36)
[2019-08-31] MEDS: POTASSIUM CHLORIDE 10% ELIXIR 20 MEQ/15 ML UDCUP PEG SCH ×2 (08:39→19:47)
[2019-08-31] MEDS: ENOXAPARIN SODIUM 40 MG/0.4 ML SYRINGE SQ SCH ×2 (08:40→09:32)
[2019-08-31] MEDS: NYSTATIN 15 GM POWDER TP SCH ×2 (08:59→19:48)
[2019-08-31] MEDS: FUROSEMIDE 10 MG/ML 4ML VIAL IV SCH (09:00)
--- NOTE | 2019-08-31 09:27 | NUR ---
REGARDING DELACRUZ EXCHANGE- I VERIFIED WITH DR AG THAT HE WANTS DELACRUZ CATH EXCHANGED- I THEN CALLED STEAM GENERATING POWERPLANT MECHANIC KAR YEPEZ AND SPOKE TO HER ABOUT IT- I GAVE HER AN UPDATE ON PT CONDITION AND SHE INFORMED ME THAT DR RUBALCAVA WILL POSTPONE FOR NOW UNTIL PT IS MORE STABLE
--- NOTE | 2019-08-31 09:53 | NUR ---
DC PLAN SENT UPDATES TO LT[facility]. PATIENT REINTUBATED 08/29. LEFT AND RIGHT CHEST TUBES PLACED. Addendum: 08/31/19 at 0954 by REBA PHILLIP RN CM Amended: Links added.
[2019-08-31 10:18] LABS: ABG HCO3 33.4 mmol/L (21.0-28.0); ABG OXYGEN SATURATION 99.5 % (95.0-99.0); ABG PCO2 44 mmHg (32-45)
--- NOTE | 2019-08-31 12:29 | NUR ---
FAMILY/ FINANCIAL ISSUES Sw spoke to daughter in law Madeline [phone]. Dgtr in law states pt's son in nursing home and sister out of state are telling daughter in law to get pt's purse and copies of IDs from hospital so that they can handle pt's payments. Explained to daughter in law that we can not release any of pt's personal belongings to anyone without pt's consent. Pt is currently intubated and can not give consent. Explained that they will have to wait until pt is able to tell us that it is ok to release to anyone else. Pt has no MPOA in place, son is in nursing home, sister would be next of kin in case of ER. Rufus Last, RM aware of above.
--- NOTE | 2019-08-31 15:31 | NUR ---
RD FOLLOW UP NOTE Pt tolerating Tube Feeding Jevity 1.5 @35mls/hr at time of screen. Diarrhea improved, as per EMR. Pt re-intubated s/p respiratory failure, aspiration of secretions, as per EMR. Noted, BLE 2+/Generalzed 2+ edema. Recommend increase tube feeding rate as tolerated to Goal rate of 45mls/hour. RD to continue to monitor. Please notify as additional nutrition concerns arise. Thank you. Addendum: 08/31/19 at [address] Amended: Links added.
--- NOTE | 2019-08-31 19:06 | NUR ---
HAND OFF REPORT GIVEN TO DEVIN YEPEZ
[2019-09-01] VITALS (25 sets, daily range): BP systolic 96–131; BP diastolic 58–89
[2019-09-01 04:03] LABS: HEMATOCRIT 22.3 % (36-48); LYMPHOCYTES % (AUTO) 10.1 % (21.0-51.0); MEAN CORPUSCULAR HEMOGLOBIN 33.3 pg (27.0-33.0); MEAN CORPUSCULAR HGB CONC 31.8 g/dL (32.0-36.0); MEAN CORPUSCULAR VOLUME 104.7 fL (79-99); MONOCYTES % (AUTO) 3.6 % (3.0-13.0); NEUTROPHILS % (AUTO) 85.7 % (40.0-77.0); NUCLEATED RED BLOOD CELLS 0.3 % (0.0-0.19); PLATELET COUNT (AUTO) 187 K/uL (130-400); RED BLOOD CELL COUNT(AUTO) 2.13 MIL/uL (4.00-5.50); RED CELL DISTRIBUTION WIDTH 18.4 % (11.0-15.5)
[2019-09-01 04:15] LABS: ALBUMIN 1.5 g/dL (3.5-5.0); BILIRUBIN,TOTAL 0.3 mg/dL (0.2-1.0); MAGNESIUM 1.8 mg/dL (1.80-2.40); PHOSPHORUS 3.8 mg/dL (2.5-4.9); POTASSIUM 4.3 mmol/L (3.5-5.1); TOTAL PROTEIN, SERUM 5.8 g/dL (6.0-8.3)
[2019-09-01] MEDS: METHYLPREDNISOLONE SOD SUCC 40MG/ML 1ML IVP SCH ×3 (04:55→20:10)
[2019-09-01] MEDS: LEVOTHYROXINE 125 MCG TABLET PO SCH (04:55)
[2019-09-01] MEDS: MAGNESIUM 2GM PREMIX 50ML 50 ML IV PRN (04:56)
[2019-09-01] MEDS: INSULIN HUMULIN R 100 UNIT/ML 3ML SQ SCH ×4 (04:56→23:59)
[2019-09-01] MEDS: IPRATROPIUM 0.5 MG/2.5 ML INH IH SCH ×4 (06:21→22:54)
[2019-09-01] MEDS: MEROPENEM 1 GM VIAL IVP SCH ×2 (07:49→20:10)
[2019-09-01] MEDS: LINEZOLID 600 MG/ISO-OSM 300 ML IV SCH ×2 (07:49→20:10)
[2019-09-01 08:27] LABS: ABG BASE EXCESS 9.6 mmol/L (-2.0-3.0); ABG HCO3 32.6 mmol/L (21.0-28.0); ABG OXYGEN SATURATION 97.4 % (95.0-99.0); ABG PCO2 38 mmHg (32-45)
[2019-09-01] MEDS: POTASSIUM CHLORIDE 10% ELIXIR 20 MEQ/15 ML UDCUP PEG SCH ×2 (09:20→20:10)
[2019-09-01] MEDS: FLUCONAZOLE 200 MG/NS 100 ML 100 ML IV SCH (09:20)
[2019-09-01] MEDS: PANTOPRAZOLE 40 MG/VIAL IVP SCH (09:20)
[2019-09-01] MEDS: FUROSEMIDE 100 MG in SODIUM CHLORIDE 0.9% 100 ML IV SCH (09:21)
[2019-09-01] MEDS: ENOXAPARIN SODIUM 40 MG/0.4 ML SYRINGE SQ SCH (09:21)
[2019-09-01] MEDS: MIDAZOLAM 50MG-0.9% NS 50ML 50 ML BAG IV SCH (09:21)
[2019-09-01] MEDS: NOREPINEPHRINE 4MG/NS 250ML 250 ML IV SCH (09:24)
[2019-09-01] MEDS: NYSTATIN 15 GM POWDER TP SCH ×2 (09:45→20:11)
[2019-09-01] MEDS: FENTANYL 1000MCG+NS 100ML IV.SOLN IV SCH (09:45)
[2019-09-02] VITALS (25 sets, daily range): BP systolic 91–121; BP diastolic 55–79
[2019-09-02] MEDS: MIDAZOLAM 50MG-0.9% NS 50ML 50 ML BAG IV SCH ×3 (03:20→20:21)
[2019-09-02] MEDS: FENTANYL 1000MCG+NS 100ML IV.SOLN IV SCH ×3 (03:29→17:55)
[2019-09-02] MEDS: METHYLPREDNISOLONE SOD SUCC 40MG/ML 1ML IVP SCH ×3 (04:07→20:07)
[2019-09-02 04:52] LABS: HEMATOCRIT 21.2 % (36-48); LYMPHOCYTES % (AUTO) 8.8 % (21.0-51.0); MEAN CORPUSCULAR HGB CONC 30.2 g/dL (32.0-36.0); MONOCYTES % (AUTO) 4.4 % (3.0-13.0); NEUTROPHILS % (AUTO) 86.2 % (40.0-77.0); NUCLEATED RED BLOOD CELLS 0.2 % (0.0-0.19); PLATELET COUNT (AUTO) 194 K/uL (130-400); RED CELL DISTRIBUTION WIDTH 18.5 % (11.0-15.5); WHITE BLOOD COUNT (AUTO) 8.5 K/uL (4.8-10.8)
[2019-09-02 05:14] LABS: CREATININE 0.9 mg/dL (0.5-1.5); POTASSIUM 5.3 mmol/L (3.5-5.1)
[2019-09-02] MEDS: INSULIN HUMULIN R 100 UNIT/ML 3ML SQ SCH ×4 (06:00→23:52)
[2019-09-02] MEDS: LEVOTHYROXINE 125 MCG TABLET PO SCH (06:06)
[2019-09-02] MEDS: IPRATROPIUM 0.5 MG/2.5 ML INH IH SCH ×4 (06:20→23:26)
[2019-09-02] MEDS: MEROPENEM 1 GM VIAL IVP SCH ×2 (07:28→19:57)
[2019-09-02] MEDS: LINEZOLID 600 MG/ISO-OSM 300 ML IV SCH ×2 (07:28→19:57)
[2019-09-02 08:13] LABS: ABG BASE EXCESS 6.6 mmol/L (-2.0-3.0); ABG HCO3 34.1 mmol/L (21.0-28.0); ABG OXYGEN SATURATION 97.5 % (95.0-99.0); ABG PCO2 61 mmHg (32-45)
[2019-09-02] MEDS: PANTOPRAZOLE 40 MG/VIAL IVP SCH (08:53)
[2019-09-02] MEDS: FLUCONAZOLE 200 MG/NS 100 ML 100 ML IV SCH (08:53)
[2019-09-02] MEDS: ENOXAPARIN SODIUM 40 MG/0.4 ML SYRINGE SQ SCH (08:55)
[2019-09-02] MEDS: NYSTATIN 15 GM POWDER TP SCH ×2 (08:55→22:09)
[2019-09-02] MEDS: POTASSIUM CHLORIDE 10% ELIXIR 20 MEQ/15 ML UDCUP PEG SCH ×2 (08:55→20:24)
[2019-09-02] MEDS ORDERED: SODIUM CHLORIDE 0.9% 250 ML IV ONE (10:20)
--- NOTE | 2019-09-02 14:12 | NUR ---
DC PLAN [employer] CALLED SAID THEY HAVE REVIEWED CASE AND PATIENT DOES NOT APPEAR STABLE. RECOMMENDING CLOSING CASE SINCE IT HAS BEEN OPENED SINCE THE AND. RESTARTING CASE ONCE PATIENT HAS TRACHE AND STABLE FOR 24 HRS. SHE WILL KEEP PACKET SO ONLY UPDATES WILL HAVE TO BE GIVEN. ALSO NEEDS STOP DATE ON IV ABX, WOUND CARE NOTES, THERAPY NOTES. CM WILL LET [facility] KNOW OF CONVERSATION. Addendum: 09/02/19 at 1415 by REBA PHILLIP RN CM Amended: Links added.
[2019-09-02 16:46] LABS: HEMATOCRIT 26.1 % (36-48); MEAN CORPUSCULAR HEMOGLOBIN 31.1 pg (27.0-33.0); MEAN CORPUSCULAR HGB CONC 29.9 g/dL (32.0-36.0); NUCLEATED RED BLOOD CELLS 0.4 % (0.0-0.19); RED BLOOD CELL COUNT(AUTO) 2.51 MIL/uL (4.00-5.50); RED CELL DISTRIBUTION WIDTH 18.7 % (11.0-15.5); WHITE BLOOD COUNT (AUTO) 5.7 K/uL (4.8-10.8)
[2019-09-03] VITALS (23 sets, daily range): BP systolic 91–129; BP diastolic 48–80
[2019-09-03] MEDS: FENTANYL 1000MCG+NS 100ML IV.SOLN IV SCH ×3 (00:47→22:00)
[2019-09-03] MEDS: METHYLPREDNISOLONE SOD SUCC 40MG/ML 1ML IVP SCH ×3 (03:56→19:42)
[2019-09-03 05:08] LABS: HEMATOCRIT 26.9 % (36-48); MEAN CORPUSCULAR HEMOGLOBIN 31.5 pg (27.0-33.0); MEAN CORPUSCULAR HGB CONC 30.1 g/dL (32.0-36.0); MEAN CORPUSCULAR VOLUME 104.7 fL (79-99); NUCLEATED RED BLOOD CELLS 0.4 % (0.0-0.19); RED BLOOD CELL COUNT(AUTO) 2.57 MIL/uL (4.00-5.50); RED CELL DISTRIBUTION WIDTH 18.6 % (11.0-15.5); WHITE BLOOD COUNT (AUTO) 5.6 K/uL (4.8-10.8)
[2019-09-03 05:15] LABS: CREATININE 0.9 mg/dL (0.5-1.5)
[2019-09-03 05:22] LABS: INR 0.96 (0.85-1.15); PARTIAL THROMBOPLASTIN TIME 23.6 SEC (26.3-35.5); PROTHROMBIN TIME 10.4 SEC (9.6-11.6)
[2019-09-03] MEDS: INSULIN HUMULIN R 100 UNIT/ML 3ML SQ SCH ×4 (06:00→23:52)
[2019-09-03] MEDS: IPRATROPIUM 0.5 MG/2.5 ML INH IH SCH ×3 (06:23→18:17)
[2019-09-03] MEDS: LEVOTHYROXINE 125 MCG TABLET PO SCH (06:25)
[2019-09-03] MEDS ORDERED: ALBUTEROL SULFATE 0.083% 2.5 MG/3 ML INH IH SCH (07:00)
[2019-09-03] MEDS ORDERED: DEXTROSE 50%-WATER 50 ML DISP.SYRIN IV SCH (07:00)
[2019-09-03] MEDS ORDERED: INSULIN HUMULIN R 100 UNIT/ML 3ML SQ SCH (07:00)
[2019-09-03] MEDS ORDERED: CALCIUM GLUCONATE 1 GM/10 ML VIAL IV ONE (07:00)
[2019-09-03] MEDS: SODIUM BICARB 50MEQ 50ML VIAL IV SCH (07:12)
[2019-09-03] MEDS ORDERED: INSULIN HUMULIN R 100 UNIT/ML 3ML IV SCH (07:15)
[2019-09-03] MEDS ORDERED: CALCIUM GLUCONATE 1 GM in SODIUM CHLORIDE 0.9% 100 ML IV SCH (07:15)
[2019-09-03 07:27] LABS: ABG BASE EXCESS 9.1 mmol/L (-2.0-3.0); ABG HCO3 36.5 mmol/L (21.0-28.0); ABG PCO2 61 mmHg (32-45)
[2019-09-03] MEDS: SODIUM POLYSTYRENE SULFONATE 15 GM/60 ML ML RC SCH (07:29)
[2019-09-03] MEDS: MIDAZOLAM 50MG-0.9% NS 50ML 50 ML BAG IV SCH ×2 (07:48→19:37)
[2019-09-03] MEDS: MEROPENEM 1 GM VIAL IVP SCH ×2 (07:56→19:39)
[2019-09-03] MEDS: LINEZOLID 600 MG/ISO-OSM 300 ML IV SCH ×2 (07:57→19:39)
[2019-09-03] MEDS: PANTOPRAZOLE 40 MG/VIAL IVP SCH (08:31)
[2019-09-03] MEDS: ENOXAPARIN SODIUM 40 MG/0.4 ML SYRINGE SQ SCH (08:31)
[2019-09-03] MEDS: FLUCONAZOLE 200 MG/NS 100 ML 100 ML IV SCH (08:32)
[2019-09-03] MEDS: NYSTATIN 15 GM POWDER TP SCH ×2 (08:32→19:39)
[2019-09-03] MEDS ORDERED: LIDOCAINE 1%-EPI 1:100,000 20 ML VIAL IJ ONE (10:29)
[2019-09-03] MEDS ORDERED: FENTANYL CITRATE PF 50 MCG/1 ML 2ML VIAL ONE (11:49)
[2019-09-03] MEDS ORDERED: CEFAZOLIN SODIUM 1 GM VIAL ONE (13:55)
[2019-09-03] MEDS: FOLIC ACID 1 MG TABLET PO SCH (14:35)
[2019-09-03] MEDS: CYANOCOBALAMIN (VITAMIN B-12) 1,000 MCG TABLET PEG SCH (14:35)
--- NOTE | 2019-09-03 15:08 | NUR ---
RD FOLLOW UP NOTE Pt tolerating Tube feeding, Jevity 1.5 @35mls/hour. Pt pending Tracheostomy today as per EMR. Pt with BLE 2+/Gen 2+ edema as per EMR. Elevated serum potassium with Kayexalate in place. Recommend continue tube feedings as medically feasible. RD to continue to monitor. Please notify as nutritional concerns arise. Thank you. Addendum: 09/03/19 at [address] Amended: Links added.
[2019-09-04] VITALS (58 sets, daily range): BP systolic 96–128; BP diastolic 52–81
[2019-09-04] MEDS: MIDAZOLAM 50MG-0.9% NS 50ML 50 ML BAG IV SCH ×3 (03:08→20:33)
[2019-09-04 04:11] LABS: ABG BASE EXCESS 9.6 mmol/L (-2.0-3.0); ABG HCO3 38.3 mmol/L (21.0-28.0); ABG OXYGEN SATURATION 98.7 % (95.0-99.0); ABG PCO2 70 mmHg (32-45)
[2019-09-04] MEDS: METHYLPREDNISOLONE SOD SUCC 40MG/ML 1ML IVP SCH ×3 (04:25→20:31)
[2019-09-04] MEDS: FENTANYL 1000MCG+NS 100ML IV.SOLN IV SCH ×4 (04:25→23:26)
[2019-09-04 04:59] LABS: HEMATOCRIT 27.8 % (36-48); MEAN CORPUSCULAR HEMOGLOBIN 32.6 pg (27.0-33.0); MEAN CORPUSCULAR HGB CONC 30.6 g/dL (32.0-36.0); MEAN CORPUSCULAR VOLUME 106.5 fL (79-99); NUCLEATED RED BLOOD CELLS 0.4 % (0.0-0.19); RED BLOOD CELL COUNT(AUTO) 2.61 MIL/uL (4.00-5.50); WHITE BLOOD COUNT (AUTO) 6.9 K/uL (4.8-10.8)
[2019-09-04] MEDS: INSULIN HUMULIN R 100 UNIT/ML 3ML SQ SCH ×3 (05:01→18:00)
[2019-09-04] MEDS: SODIUM POLYSTYRENE SULFONATE 15 GM/60 ML ML RC SCH (05:02)
[2019-09-04] MEDS: SODIUM BICARB 50MEQ 50ML VIAL IV SCH (05:02)
[2019-09-04 05:33] LABS: CREATININE 0.8 mg/dL (0.5-1.5); MAGNESIUM 2.2 mg/dL (1.80-2.40); PHOSPHORUS 4.2 mg/dL (2.5-4.9); POTASSIUM 5.8 mmol/L (3.5-5.1)
[2019-09-04] MEDS: LEVOTHYROXINE 125 MCG TABLET PO SCH (06:20)
[2019-09-04] MEDS: IPRATROPIUM 0.5 MG/2.5 ML INH IH SCH ×4 (06:31→23:45)
[2019-09-04] MEDS: LINEZOLID 600 MG/ISO-OSM 300 ML IV SCH ×2 (09:20→20:31)
[2019-09-04] MEDS: PANTOPRAZOLE 40 MG/VIAL IVP SCH (09:20)
[2019-09-04] MEDS: FLUCONAZOLE 200 MG/NS 100 ML 100 ML IV SCH (09:20)
[2019-09-04] MEDS: MEROPENEM 1 GM VIAL IVP SCH ×2 (09:20→20:31)
[2019-09-04] MEDS: FOLIC ACID 1 MG TABLET PO SCH (09:20)
[2019-09-04] MEDS: CYANOCOBALAMIN (VITAMIN B-12) 1,000 MCG TABLET PEG SCH (09:21)
[2019-09-04] MEDS: ENOXAPARIN SODIUM 40 MG/0.4 ML SYRINGE SQ SCH (09:21)
[2019-09-04] MEDS: NYSTATIN 15 GM POWDER TP SCH ×2 (09:22→20:32)
[2019-09-04] MEDS ORDERED: SODIUM POLYSTYRENE SULFONATE 15 GM/60 ML ML PO SCH (10:00)
[2019-09-05] VITALS (59 sets, daily range): BP systolic 100–169; BP diastolic 61–104
[2019-09-05 03:58] LABS: ABG BASE EXCESS 10.5 mmol/L (-2.0-3.0); ABG HCO3 39.4 mmol/L (21.0-28.0); ABG OXYGEN SATURATION 98.7 % (95.0-99.0); ABG PCO2 72 mmHg (32-45)
[2019-09-05] MEDS: METHYLPREDNISOLONE SOD SUCC 40MG/ML 1ML IVP SCH ×3 (05:25→19:25)
[2019-09-05] MEDS: LEVOTHYROXINE 125 MCG TABLET PO SCH (05:25)
[2019-09-05] MEDS: NOREPINEPHRINE 4MG/NS 250ML 250 ML IV SCH (05:26)
[2019-09-05 05:42] LABS: HEMATOCRIT 25.8 % (36-48); MEAN CORPUSCULAR HEMOGLOBIN 32.2 pg (27.0-33.0); MEAN CORPUSCULAR HGB CONC 30.2 g/dL (32.0-36.0); MEAN CORPUSCULAR VOLUME 106.6 fL (79-99); NUCLEATED RED BLOOD CELLS 0.5 % (0.0-0.19); RED BLOOD CELL COUNT(AUTO) 2.42 MIL/uL (4.00-5.50); RED CELL DISTRIBUTION WIDTH 17.1 % (11.0-15.5); WHITE BLOOD COUNT (AUTO) 5.8 K/uL (4.8-10.8)
[2019-09-05 05:55] LABS: ALBUMIN 1.6 g/dL (3.5-5.0); BILIRUBIN,TOTAL 0.3 mg/dL (0.2-1.0); CREATININE 0.7 mg/dL (0.5-1.5); MAGNESIUM 2.4 mg/dL (1.80-2.40); PHOSPHORUS 3.8 mg/dL (2.5-4.9); POTASSIUM 5.8 mmol/L (3.5-5.1); TOTAL PROTEIN, SERUM 5.3 g/dL (6.0-8.3)
[2019-09-05] MEDS: INSULIN HUMULIN R 100 UNIT/ML 3ML SQ SCH ×4 (06:00→17:42)
[2019-09-05] MEDS: IPRATROPIUM 0.5 MG/2.5 ML INH IH SCH ×3 (06:30→18:23)
[2019-09-05] MEDS: SODIUM BICARB 50MEQ 50ML VIAL IV SCH (07:15)
[2019-09-05] MEDS: SODIUM POLYSTYRENE SULFONATE 15 GM/60 ML ML RC SCH (07:15)
[2019-09-05] MEDS ORDERED: SODIUM POLYSTYRENE SULFONATE 15 GM/60 ML ML PO SCH ×2 (07:45→15:45)
[2019-09-05] MEDS: MIDAZOLAM 50MG-0.9% NS 50ML 50 ML BAG IV SCH (08:07)
[2019-09-05] MEDS: LINEZOLID 600 MG/ISO-OSM 300 ML IV SCH ×2 (08:07→19:25)
[2019-09-05] MEDS: FENTANYL 1000MCG+NS 100ML IV.SOLN IV SCH (08:08)
[2019-09-05] MEDS: MEROPENEM 1 GM VIAL IVP SCH ×2 (08:39→19:25)
[2019-09-05] MEDS: CYANOCOBALAMIN (VITAMIN B-12) 1,000 MCG TABLET PEG SCH (08:40)
[2019-09-05] MEDS: FLUCONAZOLE 200 MG/NS 100 ML 100 ML IV SCH (08:40)
[2019-09-05] MEDS: FOLIC ACID 1 MG TABLET PO SCH (08:40)
[2019-09-05] MEDS: NYSTATIN 15 GM POWDER TP SCH ×2 (08:40→19:26)
[2019-09-05] MEDS: ENOXAPARIN SODIUM 40 MG/0.4 ML SYRINGE SQ SCH (08:41)
[2019-09-05] MEDS: PANTOPRAZOLE 40 MG/VIAL IVP SCH (08:42)
--- NOTE | 2019-09-05 09:04 | NUR ---
[facility] Updates faxed to [facility] this am.
[2019-09-05] MEDS ORDERED: FUROSEMIDE 10 MG/ML 4ML VIAL IV SCH (09:45)
[2019-09-05] MEDS: FUROSEMIDE 10 MG/ML 4ML VIAL IV SCH (22:33)
[2019-09-06] VITALS (23 sets, daily range): BP systolic 110–175; BP diastolic 44–107
[2019-09-06] MEDS: IPRATROPIUM 0.5 MG/2.5 ML INH IH SCH ×5 (00:13→23:26)
[2019-09-06 03:37] LABS: HEMATOCRIT 26.9 % (36-48); MEAN CORPUSCULAR HEMOGLOBIN 31.9 pg (27.0-33.0); MEAN CORPUSCULAR HGB CONC 30.9 g/dL (32.0-36.0); MEAN CORPUSCULAR VOLUME 103.5 fL (79-99); NUCLEATED RED BLOOD CELLS 0.5 % (0.0-0.19); RED BLOOD CELL COUNT(AUTO) 2.6 MIL/uL (4.00-5.50); RED CELL DISTRIBUTION WIDTH 16.7 % (11.0-15.5); WHITE BLOOD COUNT (AUTO) 7.8 K/uL (4.8-10.8)
[2019-09-06 03:44] LABS: CREATININE 0.9 mg/dL (0.5-1.5); POTASSIUM 5.1 mmol/L (3.5-5.1)
[2019-09-06] MEDS: METHYLPREDNISOLONE SOD SUCC 40MG/ML 1ML IVP SCH ×3 (04:57→21:58)
[2019-09-06] MEDS: LEVOTHYROXINE 125 MCG TABLET PO SCH (05:24)
[2019-09-06] MEDS: SODIUM POLYSTYRENE SULFONATE 15 GM/60 ML ML RC SCH ×2 (05:25→22:35)
[2019-09-06] MEDS: SODIUM BICARB 50MEQ 50ML VIAL IV SCH ×2 (05:25→22:35)
[2019-09-06] MEDS: INSULIN HUMULIN R 100 UNIT/ML 3ML SQ SCH ×4 (06:00→18:00)
[2019-09-06 07:45] LABS: ABG BASE EXCESS 17.3 mmol/L (-2.0-3.0); ABG HCO3 42.4 mmol/L (21.0-28.0); ABG OXYGEN SATURATION 96.5 % (95.0-99.0); ABG PCO2 49 mmHg (32-45)
[2019-09-06] MEDS: FLUCONAZOLE 200 MG/NS 100 ML 100 ML IV SCH (08:18)
[2019-09-06] MEDS: LINEZOLID 600 MG/ISO-OSM 300 ML IV SCH (08:18)
[2019-09-06] MEDS: FOLIC ACID 1 MG TABLET PO SCH (08:19)
[2019-09-06] MEDS: FUROSEMIDE 10 MG/ML 4ML VIAL IV SCH (08:19)
[2019-09-06] MEDS: MEROPENEM 1 GM VIAL IVP SCH (08:19)
[2019-09-06] MEDS: ENOXAPARIN SODIUM 40 MG/0.4 ML SYRINGE SQ SCH (08:19)
[2019-09-06] MEDS: NYSTATIN 15 GM POWDER TP SCH ×2 (08:19→21:55)
[2019-09-06] MEDS: CYANOCOBALAMIN (VITAMIN B-12) 1,000 MCG TABLET PEG SCH (08:19)
[2019-09-06] MEDS: FENTANYL 1000MCG+NS 100ML IV.SOLN IV SCH (08:35)
[2019-09-06] MEDS: PANTOPRAZOLE 40 MG/VIAL IVP SCH (09:03)
[2019-09-06] MEDS ORDERED: LABETALOL 20 MG/4 ML DISP.SYRIN IV PRN (11:15)
[2019-09-06] MEDS ORDERED: HYDROMORPHONE 1 MG/1 ML AMP IVP PRN (11:15)
[2019-09-06] MEDS ORDERED: HYDRALAZINE HCL 20 MG/ML VIAL IM PRN (11:15)
[2019-09-06] MEDS: LORAZEPAM 0.5 MG TABLET PO PRN (11:35)
[2019-09-06 14:14] LABS: INR 1.05 (0.85-1.15); PROTHROMBIN TIME 11.3 SEC (9.6-11.6)
[2019-09-06] MEDS: ATORVASTATIN CALCIUM 40 MG TABLET PO SCH (21:56)
[2019-09-06] MEDS: METOPROLOL TARTRATE 25 MG TAB PO SCH (21:56)
[2019-09-07] VITALS (23 sets, daily range): BP systolic 101–143; BP diastolic 39–84
[2019-09-07] MEDS: METHYLPREDNISOLONE SOD SUCC 40MG/ML 1ML IVP SCH ×3 (03:58→21:14)
[2019-09-07 04:21] LABS: HEMATOCRIT 25.2 % (36-48); MEAN CORPUSCULAR HEMOGLOBIN 31.6 pg (27.0-33.0); MEAN CORPUSCULAR HGB CONC 31.3 g/dL (32.0-36.0); MEAN CORPUSCULAR VOLUME 100.8 fL (79-99); NUCLEATED RED BLOOD CELLS 0.3 % (0.0-0.19); RED BLOOD CELL COUNT(AUTO) 2.5 MIL/uL (4.00-5.50); RED CELL DISTRIBUTION WIDTH 17.3 % (11.0-15.5); WHITE BLOOD COUNT (AUTO) 10.5 K/uL (4.8-10.8)
[2019-09-07 04:42] LABS: CREATININE 0.8 mg/dL (0.5-1.5)
[2019-09-07] MEDS: ENOXAPARIN SODIUM 40 MG/0.4 ML SYRINGE SQ SCH (05:33)
[2019-09-07] MEDS: INSULIN HUMULIN R 100 UNIT/ML 3ML SQ SCH ×4 (05:36→18:00)
[2019-09-07] MEDS: LEVOTHYROXINE 125 MCG TABLET PO SCH (05:37)
[2019-09-07] MEDS: IPRATROPIUM 0.5 MG/2.5 ML INH IH SCH ×4 (06:32→23:55)
[2019-09-07 07:12] LABS: ABG BASE EXCESS 12.4 mmol/L (-2.0-3.0); ABG HCO3 37.5 mmol/L (21.0-28.0); ABG OXYGEN SATURATION 97.5 % (95.0-99.0); ABG PCO2 49 mmHg (32-45)
[2019-09-07] MEDS: FLUCONAZOLE 200 MG/NS 100 ML 100 ML IV SCH (09:39)
[2019-09-07] MEDS: PANTOPRAZOLE 40 MG/VIAL IVP SCH (09:43)
[2019-09-07] MEDS: FOLIC ACID 1 MG TABLET PO SCH (09:43)
[2019-09-07] MEDS: FUROSEMIDE 10 MG/ML 4ML VIAL IV SCH (09:43)
[2019-09-07] MEDS: METOPROLOL TARTRATE 25 MG TAB PO SCH ×2 (09:44→21:15)
[2019-09-07] MEDS: CYANOCOBALAMIN (VITAMIN B-12) 1,000 MCG TABLET PEG SCH (09:44)
[2019-09-07] MEDS: LISINOPRIL 20 MG TABLET PO SCH (09:44)
[2019-09-07] MEDS ORDERED: LIDOCAINE HCL 1% MDV 50ML VIAL ONE (09:47)
[2019-09-07] MEDS: NYSTATIN 15 GM POWDER TP SCH ×2 (09:50→21:14)
--- NOTE | 2019-09-07 10:45 | NUR ---
RE: DELACRUZ REMOVAL DELACRUZ REMOVAL DONE AT BEDSIDE BY DR JEONG. STERILE PREP OF DELACRUZ CATHETER TO RT CHEST DONE BY RT KAR(R). CATHETER REMOVED WITHOUT COMPLICATIONS AND DRESSING APPLIED NO BLEEDING NOTED. REPORT GIVEN TO LUCHO YBARRA AND VISUALIZED THE DRESSING. POST CHEST X-RAY ORDERED.
--- NOTE | 2019-09-07 13:45 | NUR ---
TRACHEOSTOMY WEANING PLEASE REFER TO ICU VENTILATOR WEANING DOCUMENTATION PATIENT IS FOLLOWING BASIC COMMANDS (SQUEEZE HANDS). PLACED ON CPAP PER MD ORDER, WILL CONTINUE TO MONITOR
[2019-09-07] MEDS: SODIUM POLYSTYRENE SULFONATE 15 GM/60 ML ML RC SCH (19:47)
[2019-09-07] MEDS: SODIUM BICARB 50MEQ 50ML VIAL IV SCH (19:47)
[2019-09-07] MEDS: ATORVASTATIN CALCIUM 40 MG TABLET PO SCH (21:14)
[2019-09-08] VITALS (19 sets, daily range): BP systolic 100–129; BP diastolic 55–87
[2019-09-08 03:40] LABS: HEMATOCRIT 24.5 % (36-48); MEAN CORPUSCULAR HEMOGLOBIN 31.6 pg (27.0-33.0); MEAN CORPUSCULAR HGB CONC 31.4 g/dL (32.0-36.0); MEAN CORPUSCULAR VOLUME 100.4 fL (79-99); NUCLEATED RED BLOOD CELLS 0.5 % (0.0-0.19); RED BLOOD CELL COUNT(AUTO) 2.44 MIL/uL (4.00-5.50); RED CELL DISTRIBUTION WIDTH 17.2 % (11.0-15.5); WHITE BLOOD COUNT (AUTO) 8.4 K/uL (4.8-10.8)
[2019-09-08 03:54] LABS: INR 1.05 (0.85-1.15); PARTIAL THROMBOPLASTIN TIME 22.2 SEC (26.3-35.5); PROTHROMBIN TIME 11.3 SEC (9.6-11.6)
[2019-09-08 04:03] LABS: ALBUMIN 1.8 g/dL (3.5-5.0); BILIRUBIN,TOTAL 0.6 mg/dL (0.2-1.0); CREATININE 0.8 mg/dL (0.5-1.5); MAGNESIUM 1.5 mg/dL (1.80-2.40); PHOSPHORUS 3.2 mg/dL (2.5-4.9); POTASSIUM 4.3 mmol/L (3.5-5.1); TOTAL PROTEIN, SERUM 5.2 g/dL (6.0-8.3)
[2019-09-08] MEDS: INSULIN HUMULIN R 100 UNIT/ML 3ML SQ SCH ×5 (06:00→23:57)
[2019-09-08] MEDS: METHYLPREDNISOLONE SOD SUCC 40MG/ML 1ML IVP SCH ×3 (06:09→21:14)
[2019-09-08] MEDS: LEVOTHYROXINE 125 MCG TABLET PO SCH (06:09)
[2019-09-08] MEDS: IPRATROPIUM 0.5 MG/2.5 ML INH IH SCH ×4 (06:11→23:51)
--- NOTE | 2019-09-08 07:13 | NUR ---
bedside report given to SMOOTH rn,
[2019-09-08 09:03] LABS: ABG BASE EXCESS 12.5 mmol/L (-2.0-3.0); ABG HCO3 36.4 mmol/L (21.0-28.0); ABG OXYGEN SATURATION 98.3 % (95.0-99.0); ABG PCO2 43 mmHg (32-45)
--- NOTE | 2019-09-08 10:15 | NUR ---
CASE CONFERENCE COMPLETED TAG MARKER COORDINATED WITH RESPIRATORY THERAPY. RT REPORTS Pt'S CUFF WAS DEFLATED AN HOUR AGO WITH SPO2 ABOVE 95. RT RECOMMENDED PMSV TRIALS TO BEGIN TOMORROW. TAG MARKER WILL FOLLOW Pt AND EVALUATE FOR PMSV TRIALS TOMORROW. Addendum: 09/08/[address] FRYE Amended: Links added.
[2019-09-08] MEDS: PANTOPRAZOLE 40 MG/VIAL IVP SCH (11:03)
[2019-09-08] MEDS: FLUCONAZOLE 200 MG/NS 100 ML 100 ML IV SCH (11:03)
[2019-09-08] MEDS: FUROSEMIDE 10 MG/ML 4ML VIAL IV SCH (11:04)
[2019-09-08] MEDS: ENOXAPARIN SODIUM 40 MG/0.4 ML SYRINGE SQ SCH (11:05)
[2019-09-08] MEDS: FOLIC ACID 1 MG TABLET PO SCH (11:05)
[2019-09-08] MEDS: CYANOCOBALAMIN (VITAMIN B-12) 1,000 MCG TABLET PEG SCH (11:05)
[2019-09-08] MEDS: METOPROLOL TARTRATE 25 MG TAB PO SCH ×2 (11:06→21:14)
[2019-09-08] MEDS: LISINOPRIL 20 MG TABLET PO SCH (11:06)
[2019-09-08] MEDS: NYSTATIN 15 GM POWDER TP SCH ×2 (11:09→21:14)
[2019-09-08] MEDS: ATORVASTATIN CALCIUM 40 MG TABLET PO SCH (21:14)
[2019-09-08] MEDS: LORAZEPAM 0.5 MG TABLET PO PRN (21:18)
[2019-09-09] VITALS (22 sets, daily range): BP systolic 100–125; BP diastolic 52–76
[2019-09-09 04:28] LABS: HEMATOCRIT 22.6 % (36-48); MEAN CORPUSCULAR HEMOGLOBIN 31.6 pg (27.0-33.0); MEAN CORPUSCULAR HGB CONC 31.9 g/dL (32.0-36.0); MEAN CORPUSCULAR VOLUME 99.1 fL (79-99); NUCLEATED RED BLOOD CELLS 0.3 % (0.0-0.19); RED BLOOD CELL COUNT(AUTO) 2.28 MIL/uL (4.00-5.50); RED CELL DISTRIBUTION WIDTH 16.9 % (11.0-15.5); WHITE BLOOD COUNT (AUTO) 9.3 K/uL (4.8-10.8)
[2019-09-09] MEDS: METHYLPREDNISOLONE SOD SUCC 40MG/ML 1ML IVP SCH ×3 (04:48→21:34)
[2019-09-09 04:51] LABS: CREATININE 0.6 mg/dL (0.5-1.5); PHOSPHORUS 3.4 mg/dL (2.5-4.9); POTASSIUM 4.2 mmol/L (3.5-5.1)
[2019-09-09] MEDS: SODIUM BICARB 50MEQ 50ML VIAL IV SCH (05:11)
[2019-09-09] MEDS: SODIUM POLYSTYRENE SULFONATE 15 GM/60 ML ML RC SCH (05:12)
[2019-09-09] MEDS: INSULIN HUMULIN R 100 UNIT/ML 3ML SQ SCH ×3 (05:35→18:00)
[2019-09-09] MEDS: LEVOTHYROXINE 125 MCG TABLET PO SCH (06:20)
[2019-09-09] MEDS: IPRATROPIUM 0.5 MG/2.5 ML INH IH SCH ×4 (07:02→23:21)
[2019-09-09] MEDS: FLUCONAZOLE 200 MG/NS 100 ML 100 ML IV SCH (08:47)
[2019-09-09] MEDS: PANTOPRAZOLE 40 MG/VIAL IVP SCH (08:47)
[2019-09-09] MEDS: ENOXAPARIN SODIUM 40 MG/0.4 ML SYRINGE SQ SCH (08:49)
[2019-09-09] MEDS: FOLIC ACID 1 MG TABLET PO SCH (08:49)
[2019-09-09] MEDS: CYANOCOBALAMIN (VITAMIN B-12) 1,000 MCG TABLET PEG SCH (08:50)
[2019-09-09] MEDS: LISINOPRIL 20 MG TABLET PO SCH (08:51)
[2019-09-09] MEDS: NYSTATIN 15 GM POWDER TP SCH ×2 (08:51→21:34)
[2019-09-09] MEDS: METOPROLOL TARTRATE 25 MG TAB PO SCH ×2 (08:51→21:34)
--- NOTE | 2019-09-09 16:45 | NUR ---
DC PLAN RESUBMITTED COMPLETE PACKET TO [facility] NEW REFERRAL. PATIENT DENIED TWICE BY INSURANCE FOR NOT BEING STABLE. PATIENT IS PROGRESSING. Addendum: 09/09/19 at 1648 by REBA PHILLIP RN CM Amended: Links added.
[2019-09-09] MEDS: ATORVASTATIN CALCIUM 40 MG TABLET PO SCH (21:34)
[2019-09-10] VITALS (24 sets, daily range): BP systolic 100–131; BP diastolic 47–87
[2019-09-10] MEDS: METHYLPREDNISOLONE SOD SUCC 40MG/ML 1ML IVP SCH ×3 (04:50→21:23)
[2019-09-10] MEDS: SODIUM BICARB 50MEQ 50ML VIAL IV SCH (05:40)
[2019-09-10] MEDS: SODIUM POLYSTYRENE SULFONATE 15 GM/60 ML ML RC SCH (05:40)
[2019-09-10] MEDS: INSULIN HUMULIN R 100 UNIT/ML 3ML SQ SCH ×4 (06:00→17:29)
[2019-09-10] MEDS: LEVOTHYROXINE 125 MCG TABLET PO SCH (06:30)
[2019-09-10] MEDS: IPRATROPIUM 0.5 MG/2.5 ML INH IH SCH ×4 (06:45→23:45)
[2019-09-10] MEDS: PANTOPRAZOLE 40 MG/VIAL IVP SCH (08:42)
[2019-09-10] MEDS: METOPROLOL TARTRATE 25 MG TAB PO SCH ×2 (08:42→21:23)
[2019-09-10] MEDS: CYANOCOBALAMIN (VITAMIN B-12) 1,000 MCG TABLET PEG SCH (08:42)
[2019-09-10] MEDS: ENOXAPARIN SODIUM 40 MG/0.4 ML SYRINGE SQ SCH (08:42)
[2019-09-10] MEDS: FLUCONAZOLE 200 MG/NS 100 ML 100 ML IV SCH (08:42)
[2019-09-10] MEDS: FOLIC ACID 1 MG TABLET PO SCH (08:42)
[2019-09-10] MEDS: NYSTATIN 15 GM POWDER TP SCH ×2 (08:45→21:23)
[2019-09-10] MEDS: LISINOPRIL 20 MG TABLET PO SCH (08:45)
--- NOTE | 2019-09-10 08:45 | NUR ---
SPEAKING VALVE PROSTHETIC EVALUATION Pt TOLERATED [address] AND MAINTAINED SPO2 > 95%. Pt PRODUCED AUDIBLE VOICE WITH NO SIGNS OF RESPIRATORY DISTRESS. RECOMMENDATIONS: SPEECH THERAPY 3-5XWEEK: LTG#1: Pt WILL TOLERATE ONE-WAY SPEAKING VALVE (DEMONSTRATED BY AN OXYGEN SATURATION OF >95%) TO MAXIMIZE MEETING WANTS AND NEEDS. LTG#2: SKILLED EDUCATION Pt/FAMILY/STAFF STG#1: Pt WILL TOLERATE PMSV WITH SUPERVISION AND WITH APPROPRIATE SPO2 AND HEART RATE FOR 1 HOUR. STG#2: Pt WILL COORDINATE SPEECH PRODUCTION DURING PMSV TRIALS WITH APPROPRIATE SPO2. STG#3: Pt WILL PRODUCE SPEECH AT SENTENCE LEVEL WITH NO RESPIRATORY DISTRESS. STG#4: Pt WILL DEMONSTRATE ADDUCTION TECHNIQUES DURING PMSV TRIALS WITH 80% ACCURACY. STG#5: SKILLED EDUCATION Pt/FAMILY/STAFF. JOINT FINISHER COORDINATED CARE AND RECOMMENDATIONS WITH NURSE URIARTE. G9171 40-60% G9172 20-40% G9173 - 40-60% Addendum: 09/10/[address] GI FRYE Amended: Links added.
[2019-09-10 16:39] LABS: ABG BASE EXCESS 7.8 mmol/L (-2.0-3.0); ABG HCO3 31.8 mmol/L (21.0-28.0); ABG OXYGEN SATURATION 90.3 % (95.0-99.0); ABG PCO2 42 mmHg (32-45)
[2019-09-10] MEDS: ATORVASTATIN CALCIUM 40 MG TABLET PO SCH (21:23)
[2019-09-11] VITALS (22 sets, daily range): BP systolic 107–127; BP diastolic 66–80
[2019-09-11 04:01] LABS: BASOPHILS % (AUTO) 0.2 % (0.0-5.0); HEMATOCRIT 25.6 % (36-48); LYMPHOCYTES % (AUTO) 3.7 % (21.0-51.0); MEAN CORPUSCULAR HEMOGLOBIN 32.3 pg (27.0-33.0); MEAN CORPUSCULAR HGB CONC 31.3 g/dL (32.0-36.0); MEAN CORPUSCULAR VOLUME 103.2 fL (79-99); MONOCYTES % (AUTO) 6.1 % (3.0-13.0); NEUTROPHILS % (AUTO) 88.6 % (40.0-77.0); NUCLEATED RED BLOOD CELLS 0.3 % (0.0-0.19); PLATELET COUNT (AUTO) 154 K/uL (130-400); RED BLOOD CELL COUNT(AUTO) 2.48 MIL/uL (4.00-5.50); RED CELL DISTRIBUTION WIDTH 18.3 % (11.0-15.5)
[2019-09-11 04:04] LABS: CREATININE 0.7 mg/dL (0.5-1.5); POTASSIUM 4.4 mmol/L (3.5-5.1)
[2019-09-11] MEDS: INSULIN HUMULIN R 100 UNIT/ML 3ML SQ SCH ×5 (06:00→23:31)
[2019-09-11] MEDS: METHYLPREDNISOLONE SOD SUCC 40MG/ML 1ML IVP SCH ×3 (06:06→20:07)
[2019-09-11] MEDS: LEVOTHYROXINE 125 MCG TABLET PO SCH (06:07)
[2019-09-11] MEDS: IPRATROPIUM 0.5 MG/2.5 ML INH IH SCH ×3 (06:36→18:24)
[2019-09-11] MEDS: SODIUM BICARB 50MEQ 50ML VIAL IV SCH (06:41)
[2019-09-11] MEDS: SODIUM POLYSTYRENE SULFONATE 15 GM/60 ML ML RC SCH (06:41)
[2019-09-11] MEDS: ENOXAPARIN SODIUM 40 MG/0.4 ML SYRINGE SQ SCH (09:00)
[2019-09-11] MEDS: NYSTATIN 15 GM POWDER TP SCH ×2 (09:00→20:07)
[2019-09-11] MEDS: FLUCONAZOLE 200 MG/NS 100 ML 100 ML IV SCH (09:16)
[2019-09-11] MEDS: FOLIC ACID 1 MG TABLET PO SCH (09:16)
[2019-09-11] MEDS: METOPROLOL TARTRATE 25 MG TAB PO SCH ×2 (09:16→20:07)
[2019-09-11] MEDS: CYANOCOBALAMIN (VITAMIN B-12) 1,000 MCG TABLET PEG SCH (09:16)
[2019-09-11] MEDS: LISINOPRIL 20 MG TABLET PO SCH (09:18)
[2019-09-11] MEDS: PANTOPRAZOLE 40 MG/VIAL IVP SCH (11:44)
[2019-09-11] MEDS: ATORVASTATIN CALCIUM 40 MG TABLET PO SCH (20:07)
[2019-09-12] VITALS (25 sets, daily range): BP systolic 98–137; BP diastolic 55–99
[2019-09-12] MEDS: IPRATROPIUM 0.5 MG/2.5 ML INH IH SCH ×4 (00:11→18:35)
[2019-09-12 04:51] LABS: BASOPHILS % (AUTO) 0.1 % (0.0-5.0); HEMATOCRIT 25.9 % (36-48); LYMPHOCYTES % (AUTO) 2.8 % (21.0-51.0); MEAN CORPUSCULAR HEMOGLOBIN 31.1 pg (27.0-33.0); MEAN CORPUSCULAR HGB CONC 30.9 g/dL (32.0-36.0); MEAN CORPUSCULAR VOLUME 100.8 fL (79-99); MONOCYTES % (AUTO) 6.7 % (3.0-13.0); NUCLEATED RED BLOOD CELLS 0.2 % (0.0-0.19); PLATELET COUNT (AUTO) 318 K/uL (130-400); RED BLOOD CELL COUNT(AUTO) 2.57 MIL/uL (4.00-5.50); RED CELL DISTRIBUTION WIDTH 18.9 % (11.0-15.5); WHITE BLOOD COUNT (AUTO) 17.3 K/uL (4.8-10.8)
[2019-09-12] MEDS: METHYLPREDNISOLONE SOD SUCC 40MG/ML 1ML IVP SCH ×2 (04:52→17:52)
[2019-09-12 05:13] LABS: BILIRUBIN,TOTAL 0.7 mg/dL (0.2-1.0); CREATININE 0.7 mg/dL (0.5-1.5); MAGNESIUM 1.6 mg/dL (1.80-2.40); POTASSIUM 3.5 mmol/L (3.5-5.1); TOTAL PROTEIN, SERUM 5.5 g/dL (6.0-8.3)
[2019-09-12 05:18] LABS: B-TYPE NATRIURETIC PEPTIDE 430 pg/mL (0-100)
[2019-09-12] MEDS: MAGNESIUM 2GM PREMIX 50ML 50 ML IV PRN (05:33)
[2019-09-12] MEDS: SODIUM BICARB 50MEQ 50ML VIAL IV SCH (05:37)
[2019-09-12] MEDS: SODIUM POLYSTYRENE SULFONATE 15 GM/60 ML ML RC SCH (05:37)
[2019-09-12] MEDS: LEVOTHYROXINE 125 MCG TABLET PO SCH (05:39)
[2019-09-12] MEDS: INSULIN HUMULIN R 100 UNIT/ML 3ML SQ SCH ×4 (05:43→23:37)
[2019-09-12] MEDS: FLUCONAZOLE 200 MG/NS 100 ML 100 ML IV SCH (08:29)
[2019-09-12] MEDS: LISINOPRIL 20 MG TABLET PO SCH (08:29)
[2019-09-12] MEDS: FOLIC ACID 1 MG TABLET PO SCH (08:29)
[2019-09-12] MEDS: PANTOPRAZOLE 40 MG/VIAL IVP SCH (08:29)
[2019-09-12] MEDS: METOPROLOL TARTRATE 25 MG TAB PO SCH ×2 (08:29→20:12)
[2019-09-12] MEDS: CYANOCOBALAMIN (VITAMIN B-12) 1,000 MCG TABLET PEG SCH (08:29)
[2019-09-12] MEDS: ENOXAPARIN SODIUM 40 MG/0.4 ML SYRINGE SQ SCH (08:30)
[2019-09-12] MEDS: NYSTATIN 15 GM POWDER TP SCH ×2 (08:30→20:12)
[2019-09-12 09:15] LABS: ABG BASE EXCESS 7.3 mmol/L (-2.0-3.0); ABG HCO3 30.9 mmol/L (21.0-28.0); ABG OXYGEN SATURATION 95.4 % (95.0-99.0); ABG PCO2 40 mmHg (32-45)
[2019-09-12] MEDS: CEFAZOLIN SODIUM 1 GM VIAL IVP SCH ×2 (11:48→17:52)
[2019-09-12] MEDS: ATORVASTATIN CALCIUM 40 MG TABLET PO SCH (20:12)
[2019-09-13] VITALS (31 sets, daily range): BP systolic 96–153; BP diastolic 40–102
[2019-09-13] MEDS: IPRATROPIUM 0.5 MG/2.5 ML INH IH SCH ×4 (00:50→18:55)
[2019-09-13] MEDS: CEFAZOLIN SODIUM 1 GM VIAL IVP SCH ×3 (01:43→18:51)
[2019-09-13] MEDS: SODIUM POLYSTYRENE SULFONATE 15 GM/60 ML ML RC SCH (01:55)
[2019-09-13] MEDS: SODIUM BICARB 50MEQ 50ML VIAL IV SCH (01:55)
[2019-09-13] MEDS: METHYLPREDNISOLONE SOD SUCC 40MG/ML 1ML IVP SCH ×2 (05:17→16:24)
[2019-09-13] MEDS: INSULIN HUMULIN R 100 UNIT/ML 3ML SQ SCH ×3 (06:00→18:00)
[2019-09-13 06:08] LABS: BASOPHILS % (AUTO) 0.1 % (0.0-5.0); HEMATOCRIT 24.7 % (36-48); LYMPHOCYTES % (AUTO) 3.5 % (21.0-51.0); MEAN CORPUSCULAR HEMOGLOBIN 32.8 pg (27.0-33.0); MEAN CORPUSCULAR HGB CONC 31.6 g/dL (32.0-36.0); MEAN CORPUSCULAR VOLUME 103.8 fL (79-99); MONOCYTES % (AUTO) 7.4 % (3.0-13.0); NUCLEATED RED BLOOD CELLS 0.1 % (0.0-0.19); PLATELET COUNT (AUTO) 297 K/uL (130-400); RED BLOOD CELL COUNT(AUTO) 2.38 MIL/uL (4.00-5.50); RED CELL DISTRIBUTION WIDTH 19.6 % (11.0-15.5); WHITE BLOOD COUNT (AUTO) 15.7 K/uL (4.8-10.8)
[2019-09-13] MEDS: LEVOTHYROXINE 125 MCG TABLET PO SCH (06:14)
[2019-09-13 06:20] LABS: B-TYPE NATRIURETIC PEPTIDE 411 pg/mL (0-100)
[2019-09-13 06:31] LABS: ALBUMIN 1.9 g/dL (3.5-5.0); BILIRUBIN,TOTAL 0.5 mg/dL (0.2-1.0); CREATININE 0.7 mg/dL (0.5-1.5); MAGNESIUM 2.1 mg/dL (1.80-2.40); POTASSIUM 3.5 mmol/L (3.5-5.1)
[2019-09-13 07:51] LABS: ABG BASE EXCESS 5.6 mmol/L (-2.0-3.0); ABG HCO3 29.1 mmol/L (21.0-28.0); ABG OXYGEN SATURATION 96.6 % (95.0-99.0); ABG PCO2 39 mmHg (32-45)
--- NOTE | 2019-09-13 09:00 | NUR ---
SPEAKING VALVE PROSTHETIC TREATMENT COMPLETED S: Pt COOPERATIVE WITH THERAPEUTIC GOALS. Pt STABLE AND IN GOOD RESPIRATORY STATUS TO PROCEED WITH THERAPY. 0: Pt CURRENTLY TARGETING PMSV GOALS, RESULTS ARE FOLLOWS: 1. Pt PARTICIPATED IN PMSV TRIALS WITH SUPERVISION AND WITH APPROPRIATE SPO2 & HEART RATE FOR 1 HOUR: COMPLETED, SPO2 REMAINED ABOVE 98%. 2. Pt COORDINATED SPEECH PRODUCTION DURING PMSV TRIALS WITH APPROPRIATE SPO2: COMPLETED, SPO2 REMAINED ABOVE 98% DURING SPEECH PRODUCTION. 3. Pt PRODUCED SPEECH AT SENTENCE LEVEL WITH NO RESPIRATORY DISTRESS WITH 50% ACCURACY. Pt'S LENGTH OF SPEECH PRODUCTION VARIED BETWEEN PHRASE AND SENTENCE LEVEL. 4. Pt PARTICIPATED IN ADDUCTION TECHNIQUES DURING PMSV TRIALS WITH 40% ACCURACY. 5. SKILLED EDUCATION Pt/FAMILY/STAFF: COMPLETED A: Pt IN NO RESPIRATORY DISTRESS DURING THERAPEUTIC TRIALS. Pt CONFUSED AND DISORIENTED. P: RECOMMEND THE CONTINUATION OF PMSV TRIALS. GLASS BLOWER HELPER COORDINATED WITH NURSE SALCEDO. GLASS BLOWER HELPER WILL CONTINUE TO FOLLOW Pt DURING THE LENGTH OF STAY IN THE HOSPITAL TO CONTINUE ADDRESSING PMSV GOALS. Addendum: 09/13/[address] [facility] Amended: Links added.
[2019-09-13] MEDS: FLUCONAZOLE 200 MG/NS 100 ML 100 ML IV SCH (09:28)
[2019-09-13] MEDS: PANTOPRAZOLE 40 MG/VIAL IVP SCH (09:28)
[2019-09-13] MEDS: LISINOPRIL 20 MG TABLET PO SCH (09:29)
[2019-09-13] MEDS: METOPROLOL TARTRATE 25 MG TAB PO SCH ×2 (09:29→21:00)
[2019-09-13] MEDS: CYANOCOBALAMIN (VITAMIN B-12) 1,000 MCG TABLET PEG SCH (09:29)
[2019-09-13] MEDS: FUROSEMIDE 20 MG TABLET PO SCH (09:29)
[2019-09-13] MEDS: FOLIC ACID 1 MG TABLET PO SCH (09:29)
[2019-09-13] MEDS: ENOXAPARIN SODIUM 40 MG/0.4 ML SYRINGE SQ SCH (09:30)
[2019-09-13] MEDS: NYSTATIN 15 GM POWDER TP SCH ×2 (09:31→20:23)
--- NOTE | 2019-09-13 13:22 | NUR ---
RD FOLLOW UP Pt tolerating PEG feedings with no report of GI distress. 0 Residuals. Pt seen by [facility] 09/09/19. Gen 2+, RLE3+, LLE 2+ Pitting edema. Recommend assess for Constipation, Stool softener/laxative as medically feasible. Recommend continue PEG Feedings. RD to continue to monitor. Please notify as additional nutrition concerns arise. Thank you. Addendum: 09/13/19 at [address] Amended: Links added.
--- NOTE | 2019-09-13 14:54 | NUR ---
DC PLAN SPOKE TO MACY AT [facility] SAID THEY SUBMITTED PACKET STILL PENDING INSURANCE. SENT UPDATES FROM [facility]END. Addendum: 09/13/19 at 1455 by REBA PHILLIP RN CM Amended: Links added.
[2019-09-13] MEDS ORDERED: BISACODYL 10 MG SUPP.RECT RC ONE (15:00)
--- NOTE | 2019-09-13 16:15 | NUR ---
[facility] CONSULT FOLLOW UP WOUND ASSESSMENT; [facility] RECOMMENDATIONS SUBMITTED. Addendum: 09/15/19 at 1315 by AMY GANDHI LVN Amended: Links added.
[2019-09-13] MEDS: LACTULOSE 20 GM/30 ML UDCUP PO SCH (20:22)
[2019-09-13] MEDS: ATORVASTATIN CALCIUM 40 MG TABLET PO SCH (20:22)
[2019-09-14] VITALS (23 sets, daily range): BP systolic 90–137; BP diastolic 37–76
[2019-09-14] MEDS: IPRATROPIUM 0.5 MG/2.5 ML INH IH SCH ×5 (00:41→23:05)
[2019-09-14] MEDS: CEFAZOLIN SODIUM 1 GM VIAL IVP SCH ×3 (02:39→18:08)
[2019-09-14] MEDS: LACTULOSE 20 GM/30 ML UDCUP PO SCH ×2 (02:40→09:00)
[2019-09-14] MEDS: METHYLPREDNISOLONE SOD SUCC 40MG/ML 1ML IVP SCH ×2 (03:36→16:00)
[2019-09-14 05:23] LABS: HEMATOCRIT 23.9 % (36-48); MEAN CORPUSCULAR HEMOGLOBIN 31.8 pg (27.0-33.0); MEAN CORPUSCULAR VOLUME 102.6 fL (79-99); RED BLOOD CELL COUNT(AUTO) 2.33 MIL/uL (4.00-5.50); RED CELL DISTRIBUTION WIDTH 19.5 % (11.0-15.5); WHITE BLOOD COUNT (AUTO) 17.5 K/uL (4.8-10.8)
[2019-09-14 05:57] LABS: CREATININE 0.8 mg/dL (0.5-1.5); PHOSPHORUS 3.1 mg/dL (2.5-4.9); POTASSIUM 3.5 mmol/L (3.5-5.1)
[2019-09-14] MEDS: SODIUM BICARB 50MEQ 50ML VIAL IV SCH (06:24)
[2019-09-14] MEDS: SODIUM POLYSTYRENE SULFONATE 15 GM/60 ML ML RC SCH (06:25)
[2019-09-14] MEDS: LEVOTHYROXINE 125 MCG TABLET PO SCH (06:34)
[2019-09-14] MEDS: INSULIN HUMULIN R 100 UNIT/ML 3ML SQ SCH ×4 (06:38→17:25)
--- NOTE | 2019-09-14 08:50 | NUR ---
SPEAKING VALVE PROSTHETIC TREATMENT COMPLETED S: Pt COOPERATIVE WITH THERAPEUTIC GOALS. Pt STABLE AND IN GOOD RESPIRATORY STATUS TO PROCEED WITH THERAPY. 0: Pt CURRENTLY TARGETING PMSV GOALS, RESULTS ARE FOLLOWS: 1. Pt PARTICIPATED IN PMSV TRIALS WITH SUPERVISION AND WITH APPROPRIATE SPO2 & HEART RATE FOR 1 HOUR: COMPLETED, SPO2 REMAINED ABOVE 98%. 2. Pt COORDINATED SPEECH PRODUCTION DURING PMSV TRIALS WITH APPROPRIATE SPO2: COMPLETED, SPO2 REMAINED ABOVE 98% DURING SPEECH PRODUCTION. 3. Pt PRODUCED SPEECH AT SENTENCE LEVEL WITH NO RESPIRATORY DISTRESS WITH 70% ACCURACY. Pt'S LENGTH OF SPEECH PRODUCTION VARIED BETWEEN PHRASE AND SENTENCE LEVEL. 4. Pt PARTICIPATED IN ADDUCTION TECHNIQUES DURING PMSV TRIALS WITH 60% ACCURACY. 5. SKILLED EDUCATION Pt/FAMILY/STAFF: COMPLETED A: Pt IN NO RESPIRATORY DISTRESS DURING THERAPEUTIC TRIALS. WHEN PATIENT ATTEMPTED TO GET UP, HER SPO2 DROPPED TO 88%. ONCE Pt STOPPED MOVING HER SPO2 SATURATED BACK TO 99%. P: RECOMMEND THE CONTINUATION OF PMSV TRIALS. WORK ENVIRONMENT SAFETY INSPECTOR COORDINATED WITH NURSE PARKER. NURSE STATED SHE WILL KEEP PATIENT WITH PMSV ON FOR LONGER PERIODS OF TIME TOLERATED. WORK ENVIRONMENT SAFETY INSPECTOR EDUCATED NURSE HOW TO PLACE AND REMOVE PMSV. WORK ENVIRONMENT SAFETY INSPECTOR ALSO INFORMED NURSE OF PMSV CARE AND TO REMOVE IT WHEN Pt IS ASLEEP. WORK ENVIRONMENT SAFETY INSPECTOR WILL CONTINUE TO FOLLOW Pt DURING THE LENGTH OF STAY IN THE HOSPITAL TO CONTINUE ADDRESSING PMSV GOALS. Addendum: 09/14/[address] [facility] Amended: Links added.
[2019-09-14] MEDS: FLUCONAZOLE 200 MG/NS 100 ML 100 ML IV SCH (09:43)
[2019-09-14] MEDS: FUROSEMIDE 20 MG TABLET PO SCH (09:44)
[2019-09-14] MEDS: PANTOPRAZOLE 40 MG/VIAL IVP SCH (09:44)
[2019-09-14] MEDS: METOPROLOL TARTRATE 25 MG TAB PO SCH ×2 (09:44→21:56)
[2019-09-14] MEDS: CYANOCOBALAMIN (VITAMIN B-12) 1,000 MCG TABLET PEG SCH (09:44)
[2019-09-14] MEDS: FOLIC ACID 1 MG TABLET PO SCH (09:44)
[2019-09-14] MEDS: LISINOPRIL 20 MG TABLET PO SCH (09:45)
[2019-09-14] MEDS: ENOXAPARIN SODIUM 40 MG/0.4 ML SYRINGE SQ SCH (09:57)
[2019-09-14] MEDS: NYSTATIN 15 GM POWDER TP SCH ×2 (09:59→21:57)
--- NOTE | 2019-09-14 13:28 | NUR ---
DC PLAN SENT CLINICAL UPDATES TO [facility]. Addendum: 09/14/19 at 1329 by REBA PHILLIP RN CM Amended: Links added.
[2019-09-14] MEDS ORDERED: LIDOCAINE HCL-MPF 1% 2ML VIAL IV PRN (15:30)
[2019-09-14] MEDS ORDERED: POTASSIUM CHLORIDE 20 MEQ ERTAB PO PRN (15:30)
[2019-09-14] MEDS ORDERED: POTASSIUM CHLORIDE 10% ELIXIR 20 MEQ/15 ML UDCUP ONE (15:50)
[2019-09-14] MEDS: POTASSIUM CHLORIDE 10% ELIXIR 20 MEQ/15 ML UDCUP PO PRN (16:01)
[2019-09-14 16:35] LABS: INR 1.02 (0.85-1.15); PARTIAL THROMBOPLASTIN TIME 23.5 SEC (26.3-35.5)
[2019-09-14] MEDS: ATORVASTATIN CALCIUM 40 MG TABLET PO SCH (21:56)
[2019-09-15] VITALS (26 sets, daily range): BP systolic 93–122; BP diastolic 36–79
[2019-09-15] MEDS: CEFAZOLIN SODIUM 1 GM VIAL IVP SCH ×3 (00:48→17:56)
[2019-09-15] MEDS: LEVOTHYROXINE 125 MCG TABLET PO SCH (05:44)
[2019-09-15] MEDS: METHYLPREDNISOLONE SOD SUCC 40MG/ML 1ML IVP SCH ×2 (05:44→18:06)
[2019-09-15] MEDS: INSULIN HUMULIN R 100 UNIT/ML 3ML SQ SCH ×4 (06:00→18:00)
[2019-09-15] MEDS: SODIUM BICARB 50MEQ 50ML VIAL IV SCH (06:05)
[2019-09-15] MEDS: SODIUM POLYSTYRENE SULFONATE 15 GM/60 ML ML RC SCH (06:05)
[2019-09-15] MEDS: IPRATROPIUM 0.5 MG/2.5 ML INH IH SCH ×4 (06:41→23:29)
[2019-09-15 07:28] LABS: HEMATOCRIT 23.9 % (36-48); MEAN CORPUSCULAR HEMOGLOBIN 32.3 pg (27.0-33.0); MEAN CORPUSCULAR HGB CONC 31.4 g/dL (32.0-36.0); RED BLOOD CELL COUNT(AUTO) 2.32 MIL/uL (4.00-5.50); RED CELL DISTRIBUTION WIDTH 19.9 % (11.0-15.5); WHITE BLOOD COUNT (AUTO) 17.1 K/uL (4.8-10.8)
[2019-09-15 07:54] LABS: CREATININE 0.7 mg/dL (0.5-1.5); POTASSIUM 3.4 mmol/L (3.5-5.1)
--- NOTE | 2019-09-15 08:00 | NUR ---
PT ABLE TO TOLERATE WITH HEAD OF BED UP. PASSIMIR VALVE PLACED. TOLERATED FOR A FEW MINUTES, AND THEN WITH LOW SATURATION. WILL CONTINUE TO PLACE ON AND OFF
[2019-09-15] MEDS: FLUCONAZOLE 200 MG/NS 100 ML 100 ML IV SCH (08:58)
[2019-09-15] MEDS: PANTOPRAZOLE 40 MG/VIAL IVP SCH (08:58)
[2019-09-15] MEDS: CYANOCOBALAMIN (VITAMIN B-12) 1,000 MCG TABLET PEG SCH (08:59)
[2019-09-15] MEDS: FOLIC ACID 1 MG TABLET PO SCH (08:59)
[2019-09-15] MEDS: METOPROLOL TARTRATE 25 MG TAB PO SCH ×3 (09:00→21:30)
[2019-09-15] MEDS: LISINOPRIL 20 MG TABLET PO SCH (09:00)
[2019-09-15] MEDS: ENOXAPARIN SODIUM 40 MG/0.4 ML SYRINGE SQ SCH (09:01)
[2019-09-15] MEDS: HONEY 1 APPL/ML TUBE TP SCH (09:01)
[2019-09-15] MEDS: NYSTATIN 15 GM POWDER TP SCH ×2 (09:24→21:30)
--- NOTE | 2019-09-15 12:24 | NUR ---
DC PLAN SENT CLINICAL UPDATES SPOKE TO [facility] STILL PENDING. PER INSURANCE ITS UNDER REVIEW. Addendum: 09/15/19 at 1225 by REBA PHILLIP RN CM Amended: Links added.
--- NOTE | 2019-09-15 12:50 | NUR ---
SPEAKING VALVE PROSTHETIC TREATMENT COMPLETED S: Pt COOPERATIVE WITH THERAPEUTIC GOALS. Pt STABLE AND IN GOOD RESPIRATORY STATUS TO PROCEED WITH THERAPY. 0: Pt CURRENTLY TARGETING PMSV GOALS, RESULTS ARE FOLLOWS: 1. Pt PARTICIPATED IN PMSV TRIALS WITH SUPERVISION AND WITH APPROPRIATE SPO2 & HEART RATE FOR 1 HOUR: COMPLETED, SPO2 REMAINED ABOVE 98%. 2. Pt COORDINATED SPEECH PRODUCTION DURING PMSV TRIALS WITH APPROPRIATE SPO2: COMPLETED, SPO2 REMAINED ABOVE 98% DURING SPEECH PRODUCTION. 3. Pt PRODUCED SPEECH AT SENTENCE LEVEL WITH NO RESPIRATORY DISTRESS WITH 70% ACCURACY. Pt'S LENGTH OF SPEECH PRODUCTION VARIED BETWEEN PHRASE AND SENTENCE LEVEL. 4. Pt PARTICIPATED IN ADDUCTION TECHNIQUES DURING PMSV TRIALS WITH 50% ACCURACY. 5. SKILLED EDUCATION Pt/FAMILY/STAFF: COMPLETED A: Pt IN NO RESPIRATORY DISTRESS DURING THERAPEUTIC PMSV TRIALS. P: RECOMMEND THE CONTINUATION OF PMSV TRIALS. FURNITURE UPHOLSTERER COORDINATED WITH NURSE HELLER. NURSE STATED SHE WILL KEEP PATIENT WITH PMSV ON FOR LONGER PERIODS OF TIME TOLERATED. FURNITURE UPHOLSTERER EDUCATED NURSE HOW TO PLACE AND REMOVE PMSV. FURNITURE UPHOLSTERER ALSO INFORMED NURSE OF PMSV CARE AND TO REMOVE IT WHEN Pt IS ASLEEP. FURNITURE UPHOLSTERER WILL CONTINUE TO FOLLOW Pt DURING THE LENGTH OF STAY IN THE HOSPITAL TO CONTINUE ADDRESSING PMSV GOALS. Addendum: 09/15/[address] [facility] Amended: Links added.
--- NOTE | 2019-09-15 15:21 | NUR ---
PT WAS ABLE TO CARRY ON A WHOLE CONVERSATION WITHOUT SHORTNESS OF BREATH. CALLED SISTER ON THE PHONE.
--- NOTE | 2019-09-15 15:24 | NUR ---
TOLERATING PASSIMIR VALVE WITH NO LOW SATS
[2019-09-15] MEDS: ATORVASTATIN CALCIUM 40 MG TABLET PO SCH (21:30)
[2019-09-16] VITALS (20 sets, daily range): BP systolic 88–133; BP diastolic 44–97
[2019-09-16] MEDS: CEFAZOLIN SODIUM 1 GM VIAL IVP SCH ×3 (03:29→19:13)
[2019-09-16] MEDS: METHYLPREDNISOLONE SOD SUCC 40MG/ML 1ML IVP SCH (03:55)
[2019-09-16] MEDS: INSULIN HUMULIN R 100 UNIT/ML 3ML SQ SCH ×5 (06:00→23:55)
[2019-09-16] MEDS: IPRATROPIUM 0.5 MG/2.5 ML INH IH SCH ×4 (06:28→23:20)
[2019-09-16] MEDS: SODIUM BICARB 50MEQ 50ML VIAL IV SCH (07:15)
[2019-09-16] MEDS: SODIUM POLYSTYRENE SULFONATE 15 GM/60 ML ML RC SCH (07:15)
[2019-09-16] MEDS: LEVOTHYROXINE 125 MCG TABLET PO SCH (07:26)
[2019-09-16] MEDS: FLUCONAZOLE 200 MG/NS 100 ML 100 ML IV SCH (08:05)
[2019-09-16] MEDS: ENOXAPARIN SODIUM 40 MG/0.4 ML SYRINGE SQ SCH (08:05)
[2019-09-16] MEDS: HONEY 1 APPL/ML TUBE TP SCH (08:06)
[2019-09-16] MEDS: FOLIC ACID 1 MG TABLET PO SCH (08:06)
[2019-09-16] MEDS: METOPROLOL TARTRATE 25 MG TAB PO SCH ×2 (08:06→21:05)
[2019-09-16] MEDS: LISINOPRIL 20 MG TABLET PO SCH (08:06)
[2019-09-16] MEDS: CYANOCOBALAMIN (VITAMIN B-12) 1,000 MCG TABLET PEG SCH (08:06)
[2019-09-16] MEDS: PANTOPRAZOLE 40 MG/VIAL IVP SCH (08:06)
[2019-09-16] MEDS: NYSTATIN 15 GM POWDER TP SCH ×2 (08:07→21:05)
--- NOTE | 2019-09-16 09:28 | NUR ---
"[employer] Follow-up Called Viki Alicea RN, BSN, KENDALL, MHA | [place], [facility], p [phone] | f [phone], and left VM with patient's name, , member #, and informed of no auth from [employer] since referral sent on 09/08. Asked to call CM Dir back at [phone] or bedside CM at [phone]."
--- NOTE | 2019-09-16 10:15 | NUR ---
SPEAKING VALVE PROSTHETIC TREATMENT COMPLETED S: Pt COOPERATIVE WITH THERAPEUTIC GOALS. Pt STABLE AND IN GOOD RESPIRATORY STATUS TO PROCEED WITH THERAPY. 0: Pt CURRENTLY TARGETING PMSV GOALS, RESULTS ARE FOLLOWS: 1. Pt PARTICIPATED IN PMSV TRIALS WITH SUPERVISION AND WITH APPROPRIATE SPO2 & HEART RATE FOR 1 HOUR: COMPLETED, SPO2 REMAINED ABOVE 95%. 2. Pt COORDINATED SPEECH PRODUCTION DURING PMSV TRIALS WITH APPROPRIATE SPO2: COMPLETED, SPO2 REMAINED ABOVE 95% DURING SPEECH PRODUCTION. 3. Pt PRODUCED SPEECH AT SENTENCE LEVEL WITH NO RESPIRATORY DISTRESS WITH 80% ACCURACY. Pt'S LENGTH OF SPEECH PRODUCTION VARIED BETWEEN PHRASE AND SENTENCE LEVEL. 4. Pt PARTICIPATED IN ADDUCTION TECHNIQUES DURING PMSV TRIALS WITH 50% ACCURACY. 5. SKILLED EDUCATION Pt/FAMILY/STAFF: COMPLETED A: Pt'S PASSY-MADDI MISPLACED. SUPERVISING EDITOR TRAILER PROVIDED Pt A NEW PASSY-MADDI WITH INSTRUCTIONS TO BE USED ONLY WHEN BEING SUPERVISED. PER NURSE AND RESPIRATORY THERAPIST, Pt WILL FIDGET AND STARTS TO REMOVE THINGS. Pt IN NO RESPIRATORY DISTRESS DURING THERAPEUTIC PMSV TRIALS. P: RECOMMEND THE CONTINUATION OF PMSV TRIALS INTERMITTENTLY WHILE BEING SUPERVISED. SUPERVISING EDITOR TRAILER COORDINATED WITH NURSE KWONG. SUPERVISING EDITOR TRAILER WILL CONTINUE TO FOLLOW Pt DURING THE LENGTH OF STAY IN THE HOSPITAL TO CONTINUE ADDRESSING PMSV GOALS. Addendum: 09/16/[address] [facility] Amended: Links added.
--- NOTE | 2019-09-16 12:08 | NUR ---
Esmer ODELL at bedside.
--- NOTE | 2019-09-16 14:20 | NUR ---
Dr. Moore at bedside.
[2019-09-16] MEDS: ATORVASTATIN CALCIUM 40 MG TABLET PO SCH (21:05)
[2019-09-17] VITALS (28 sets, daily range): BP systolic 92–117; BP diastolic 52–87
[2019-09-17] MEDS: CEFAZOLIN SODIUM 1 GM VIAL IVP SCH ×3 (02:44→18:48)
[2019-09-17 04:00] LABS: MEAN CORPUSCULAR HEMOGLOBIN 32.8 pg (27.0-33.0); MEAN CORPUSCULAR VOLUME 102.5 fL (79-99); RED BLOOD CELL COUNT(AUTO) 2.44 MIL/uL (4.00-5.50); RED CELL DISTRIBUTION WIDTH 19.9 % (11.0-15.5); WHITE BLOOD COUNT (AUTO) 23.8 K/uL (4.8-10.8)
[2019-09-17 04:48] LABS: CREATININE 0.7 mg/dL (0.5-1.5); MAGNESIUM 1.7 mg/dL (1.80-2.40); PHOSPHORUS 2.5 mg/dL (2.5-4.9)
[2019-09-17] MEDS: POTASSIUM CHLORIDE 20MEQ/100ML 100 ML IV PRN ×2 (05:47→09:32)
[2019-09-17] MEDS: SODIUM BICARB 50MEQ 50ML VIAL IV SCH (05:48)
[2019-09-17] MEDS: LEVOTHYROXINE 125 MCG TABLET PO SCH (05:48)
[2019-09-17] MEDS: MAGNESIUM 2GM PREMIX 50ML 50 ML IV PRN (05:48)
[2019-09-17] MEDS: SODIUM POLYSTYRENE SULFONATE 15 GM/60 ML ML RC SCH (05:49)
[2019-09-17] MEDS: INSULIN HUMULIN R 100 UNIT/ML 3ML SQ SCH (06:00)
[2019-09-17] MEDS: IPRATROPIUM 0.5 MG/2.5 ML INH IH SCH ×4 (06:49→23:49)
--- NOTE | 2019-09-17 09:00 | NUR ---
SPEAKING VALVE PROSTHETIC TREATMENT COMPLETED S: Pt COOPERATIVE WITH THERAPEUTIC GOALS. Pt STABLE AND IN GOOD RESPIRATORY STATUS TO PROCEED WITH THERAPY. 0: Pt CURRENTLY TARGETING PMSV GOALS, RESULTS ARE FOLLOWS: 1. Pt PARTICIPATED IN PMSV TRIALS WITH SUPERVISION AND WITH APPROPRIATE SPO2 & HEART RATE FOR 1 HOUR: Pt TOLERATED 5 TRIALS OF 3 MINUTES WITH PMSV BEFORE SHOWING S/S OF RESPIRATORY DISTRESS. Pt USING ACCESSORY MUSCLE DURING INHALATION. Pt VOICED AND AGREED TO TAKE A BREAK AT THIS TIME. 2. Pt COORDINATED SPEECH PRODUCTION DURING PMSV TRIALS WITH APPROPRIATE SPO2: COMPLETED, Pt COORDINATED SPEECH PRODUCTION WITH NO DIFFICULTIES. 3. Pt PRODUCED SPEECH AT SENTENCE LEVEL WITH NO RESPIRATORY DISTRESS WITH 40% ACCURACY. Pt'S PRODUCED WORD TO PHRASE LEVEL UTTERANCES. 4. Pt PARTICIPATED IN ADDUCTION TECHNIQUES DURING PMSV TRIALS WITH 0% ACCURACY. 5. SKILLED EDUCATION Pt/FAMILY/STAFF: COMPLETED A: Pt IN RESPIRATORY DISTRESS DURING THERAPEUTIC PMSV TRIALS AT THIS TIME. IN SPITE OF RESPIRATORY DISTRESS, Pt SPO2 REMAINED ABOVE 95% AT ALL TIMES. Pt WAS CONGESTED AND WITH PHLEGMS WHEN COUGHING. NURSE MENENDEZ SUCTIONED Pt, BUT Pt CONTINUED WITH DIFFICULTY TOLERATING PMSV TRIALS. P: RECOMMEND THE CONTINUATION OF PMSV TRIALS INTERMITTENTLY WHILE BEING SUPERVISED TOLERATED. PACKAGING SALES REPRESENTATIVE COORDINATED WITH NURSE MENENDEZ. PACKAGING SALES REPRESENTATIVE WILL CONTINUE TO FOLLOW Pt DURING THE LENGTH OF STAY IN THE HOSPITAL TO CONTINUE ADDRESSING PMSV GOALS. Addendum: 09/17/[address] [facility] Amended: Links added.
[2019-09-17] MEDS: METHYLPREDNISOLONE SOD SUCC 40MG/ML 1ML IVP SCH (09:28)
[2019-09-17] MEDS: ENOXAPARIN SODIUM 40 MG/0.4 ML SYRINGE SQ SCH (09:29)
[2019-09-17] MEDS: LISINOPRIL 20 MG TABLET PO SCH (09:30)
[2019-09-17] MEDS: METOPROLOL TARTRATE 25 MG TAB PO SCH ×2 (09:30→20:07)
[2019-09-17] MEDS: HONEY 1 APPL/ML TUBE TP SCH (09:31)
[2019-09-17] MEDS: CYANOCOBALAMIN (VITAMIN B-12) 1,000 MCG TABLET PEG SCH (09:31)
[2019-09-17] MEDS: NYSTATIN 15 GM POWDER TP SCH ×2 (09:31→20:08)
[2019-09-17] MEDS: PANTOPRAZOLE 40 MG/VIAL IVP SCH (09:31)
[2019-09-17] MEDS: FOLIC ACID 1 MG TABLET PO SCH (09:31)
[2019-09-17] MEDS: POTASSIUM CHLORIDE 10% ELIXIR 20 MEQ/15 ML UDCUP PO PRN ×2 (09:32→11:53)
--- NOTE | 2019-09-17 11:51 | NUR ---
RD FOLLOW UP Pt continues to tolerate tube feedings. Pt is receiving Speech Therapy. LBM 09/14/19. Noted RLE 3+edema, LLE 2+ edema per EMR. Recommend continue tube feedings Recommend monitor BM status Recommend 1500mL Fluid Restrict RD to continue to monitor. Please notify as additional nutrition concerns arise. Thank you. Addendum: 09/17/19 at [address] Amended: Links added.
--- NOTE | 2019-09-17 12:30 | NUR ---
DC PLAN PATIENT PENDING INSURANCE APPROVAL. SPOKE TO MACY NO WORD TODAY OF YET. GOT NEW COVID AND MOT FORMS SIGNED BY DR. AG PLACED FRONT OF CHART. EMS FILLED JUST NEEDS DATE OF TRANSPORT. Addendum: 09/17/19 at 1232 by REBA PHILLIP RN CM Amended: Links added.
[2019-09-17 15:44] LABS: APPEARANCE,URINE Clear (CLEAR); BILIRUBIN,URINE Negative (NEGATIVE); COLOR,URINE Yellow (YELLOW); GLUCOSE, URINE (UA) Negative (NEGATIVE); KETONES,URINE Trace mg/dL (NEGATIVE); LEUKOCYTE ESTERASE ,URINE Large (NEGATIVE); NITRATE,URINE Negative (NEGATIVE); OCCULT BLOOD,URINE Negative (NEGATIVE); PH,URINE 6.5 (5.0-8.0); PROTEIN,URINE Negative (NEGATIVE); UROBILINOGEN,URINE 0.2 mg/dL (0.2-1.0)
[2019-09-17 15:53] LABS: MAGNESIUM 2.2 mg/dL (1.80-2.40); POTASSIUM 4.7 mmol/L (3.5-5.1)
[2019-09-17 16:15] LABS: BACTERIA,URINE Many /HPF (None Seen); RBC,URINE 0-1 /HPF (0-1); SQUAMOUS EPITHELIAL CELL,UR Few /HPF (0-2)
[2019-09-17] MEDS: ATORVASTATIN CALCIUM 40 MG TABLET PO SCH (20:07)
[2019-09-18] VITALS (43 sets, daily range): BP systolic 91–137; BP diastolic 50–91
[2019-09-18] MEDS: CEFAZOLIN SODIUM 1 GM VIAL IVP SCH ×3 (01:38→18:44)
[2019-09-18 05:33] LABS: BASOPHILS % (AUTO) 0.1 % (0.0-5.0); EOSINOPHILS % (AUTO) 0.4 % (0.0-8.0); LYMPHOCYTES % (AUTO) 5.1 % (21.0-51.0); MEAN CORPUSCULAR HEMOGLOBIN 32.9 pg (27.0-33.0); MEAN CORPUSCULAR HGB CONC 31.6 g/dL (32.0-36.0); MEAN CORPUSCULAR VOLUME 104.2 fL (79-99); MONOCYTES % (AUTO) 3.4 % (3.0-13.0); NEUTROPHILS % (AUTO) 90.4 % (40.0-77.0); PLATELET COUNT (AUTO) 224 K/uL (130-400); RED CELL DISTRIBUTION WIDTH 20.2 % (11.0-15.5); WHITE BLOOD COUNT (AUTO) 15.7 K/uL (4.8-10.8)
[2019-09-18] MEDS: LEVOTHYROXINE 125 MCG TABLET PO SCH (05:45)
[2019-09-18 05:48] LABS: CREATININE 0.6 mg/dL (0.5-1.5)
[2019-09-18] MEDS: IPRATROPIUM 0.5 MG/2.5 ML INH IH SCH ×3 (06:19→18:23)
[2019-09-18] MEDS: SODIUM BICARB 50MEQ 50ML VIAL IV SCH (07:15)
[2019-09-18] MEDS: SODIUM POLYSTYRENE SULFONATE 15 GM/60 ML ML RC SCH (07:15)
[2019-09-18] MEDS: CYANOCOBALAMIN (VITAMIN B-12) 1,000 MCG TABLET PEG SCH (09:37)
[2019-09-18] MEDS: METHYLPREDNISOLONE SOD SUCC 40MG/ML 1ML IVP SCH (09:37)
[2019-09-18] MEDS: FOLIC ACID 1 MG TABLET PO SCH (09:37)
[2019-09-18] MEDS: ENOXAPARIN SODIUM 40 MG/0.4 ML SYRINGE SQ SCH (09:41)
[2019-09-18] MEDS: NYSTATIN 15 GM POWDER TP SCH ×2 (09:43→20:59)
[2019-09-18] MEDS: HONEY 1 APPL/ML TUBE TP SCH (09:43)
[2019-09-18] MEDS: METOPROLOL TARTRATE 25 MG TAB PO SCH ×2 (10:18→20:58)
[2019-09-18] MEDS: LISINOPRIL 20 MG TABLET PO SCH (10:18)
[2019-09-18] MEDS: ACETYLCYSTEINE 10% 100MG/ML 4ML VIAL PO SCH ×2 (11:26→18:23)
[2019-09-18] MEDS: ATORVASTATIN CALCIUM 40 MG TABLET PO SCH (20:59)
[2019-09-19] VITALS (37 sets, daily range): BP systolic 103–144; BP diastolic 45–90
[2019-09-19] MEDS: IPRATROPIUM 0.5 MG/2.5 ML INH IH SCH ×5 (00:16→23:50)
[2019-09-19] MEDS: ACETYLCYSTEINE 10% 100MG/ML 4ML VIAL PO SCH ×5 (00:16→23:50)
[2019-09-19] MEDS: CEFAZOLIN SODIUM 1 GM VIAL IVP SCH ×3 (03:08→18:46)
[2019-09-19] MEDS: SODIUM BICARB 50MEQ 50ML VIAL IV SCH (06:08)
[2019-09-19] MEDS: SODIUM POLYSTYRENE SULFONATE 15 GM/60 ML ML RC SCH (06:08)
[2019-09-19] MEDS: LEVOTHYROXINE 125 MCG TABLET PO SCH (06:11)
[2019-09-19] MEDS: CYANOCOBALAMIN (VITAMIN B-12) 1,000 MCG TABLET PEG SCH (08:36)
[2019-09-19] MEDS: FOLIC ACID 1 MG TABLET PO SCH (08:36)
[2019-09-19] MEDS: LISINOPRIL 20 MG TABLET PO SCH (08:36)
[2019-09-19] MEDS: METOPROLOL TARTRATE 25 MG TAB PO SCH ×2 (08:37→21:02)
[2019-09-19] MEDS: METHYLPREDNISOLONE SOD SUCC 40MG/ML 1ML IVP SCH (08:37)
[2019-09-19] MEDS: HONEY 1 APPL/ML TUBE TP SCH (08:37)
[2019-09-19] MEDS: NYSTATIN 15 GM POWDER TP SCH ×2 (08:38→21:05)
[2019-09-19 09:42] LABS: CREATININE 0.6 mg/dL (0.5-1.5); POTASSIUM 3.5 mmol/L (3.5-5.1)
[2019-09-19] MEDS: POTASSIUM CHLORIDE 10% ELIXIR 20 MEQ/15 ML UDCUP PO PRN (18:48)
[2019-09-19] MEDS: ATORVASTATIN CALCIUM 40 MG TABLET PO SCH (21:02)
[2019-09-20] VITALS (32 sets, daily range): BP systolic 104–136; BP diastolic 63–81
[2019-09-20] MEDS: CEFAZOLIN SODIUM 1 GM VIAL IVP SCH ×3 (03:12→18:41)
[2019-09-20 06:04] LABS: MEAN CORPUSCULAR HEMOGLOBIN 32.6 pg (27.0-33.0); MEAN CORPUSCULAR HGB CONC 31.3 g/dL (32.0-36.0); MEAN CORPUSCULAR VOLUME 104.1 fL (79-99); RED BLOOD CELL COUNT(AUTO) 2.21 MIL/uL (4.00-5.50); RED CELL DISTRIBUTION WIDTH 19.9 % (11.0-15.5); WHITE BLOOD COUNT (AUTO) 16.2 K/uL (4.8-10.8)
[2019-09-20 06:21] LABS: MAGNESIUM 1.8 mg/dL (1.80-2.40); PHOSPHORUS 2.5 mg/dL (2.5-4.9)
[2019-09-20] MEDS: SODIUM POLYSTYRENE SULFONATE 15 GM/60 ML ML RC SCH (06:22)
[2019-09-20] MEDS: SODIUM BICARB 50MEQ 50ML VIAL IV SCH (06:22)
[2019-09-20] MEDS: LEVOTHYROXINE 125 MCG TABLET PO SCH (06:22)
[2019-09-20] MEDS: IPRATROPIUM 0.5 MG/2.5 ML INH IH SCH ×4 (06:26→22:59)
[2019-09-20] MEDS: ACETYLCYSTEINE 10% 100MG/ML 4ML VIAL PO SCH ×4 (06:26→22:59)
[2019-09-20 07:52] LABS: CREATININE 0.7 mg/dL (0.5-1.5); POTASSIUM 3.5 mmol/L (3.5-5.1)
--- NOTE | 2019-09-20 09:10 | NUR ---
SPEAKING VALVE PROSTHETIC TREATMENT COMPLETED S: Pt COOPERATIVE WITH THERAPEUTIC GOALS. Pt WITH STABLE SATURATION ABOVE 95%. RESPIRATORY THERAPIST ASSISTED WITH SUCTIONING Pt'S TRACH AND ORAL SECRETIONS PRIOR TO PMSV PLACEMENT. 0: Pt CURRENTLY TARGETING PMSV GOALS, RESULTS ARE FOLLOWS: 1. Pt PARTICIPATED IN PMSV TRIALS WITH SUPERVISION AND WITH APPROPRIATE SPO2 & HEART RATE FOR 1 HOUR: Pt TOLERATED 3 PHRASES WITH PMSV BEFORE GESTURING WITH HAND TO REMOVE PMSV IN ALL 5 TRIALS ATTEMPTED. Pt'S SPO2 RANGED FROM 95 TO 98%. 2. Pt COORDINATED SPEECH PRODUCTION DURING PMSV TRIALS WITH APPROPRIATE SPO2: COMPLETED, SPO2 REMAINED ABOVE 95% DURING SPEECH PRODUCTION. Pt ABLE TO COORDINATE SPEECH PRODUCTION DURING PMSV. 3. Pt PRODUCED SPEECH AT SENTENCE LEVEL WITH NO RESPIRATORY DISTRESS WITH 0% ACCURACY. Pt'S LENGTH OF SPEECH PRODUCTION VARIED FROM WORD TO PHRASE LEVEL WITH RESPIRATORY DISTRESS. 4. Pt PARTICIPATED IN ADDUCTION TECHNIQUES DURING PMSV TRIALS WITH 0% ACCURACY. 5. SKILLED EDUCATION Pt/FAMILY/STAFF: COMPLETED A: Pt INHALING WITH NO DIFFICULTY AND NOTED TO HAVE DIFFICULTY EXHALING VIA MOUTH AND NOSE AFTER A FEW SECONDS. Pt WAS ENCOURAGED TO COUNT TO 5 DURING EXHALATION. Pt ABLE TO COUNT TO 4 BEFORE GESTURING WITH HAND TO REMOVE PMSV. RESPIRATORY THERAPIST, KATERINA, PRESENT DURING LAST TRIAL TO ASSIST WITH POSSIBLE TROUBLESHOOTING CAUSES. Pt CONTINUED TO TOLERATE PMSV ONLY FOR A FEW SECONDS. P: RECOMMEND THE CONTINUATION OF PMSV TRIALS INTERMITTENTLY WHILE BEING SUPERVISED. BASKET BOTTOM MACHINE OPERATOR COORDINATED WITH NURSE KENNY. BASKET BOTTOM MACHINE OPERATOR WILL CONTINUE TO FOLLOW Pt DURING THE LENGTH OF STAY IN THE HOSPITAL TO CONTINUE ADDRESSING PMSV GOALS. Addendum: 09/20/[address] [facility] Amended: Links added.
[2019-09-20] MEDS: METHYLPREDNISOLONE SOD SUCC 40MG/ML 1ML IVP SCH (10:10)
[2019-09-20] MEDS: CYANOCOBALAMIN (VITAMIN B-12) 1,000 MCG TABLET PEG SCH (10:10)
[2019-09-20] MEDS: FOLIC ACID 1 MG TABLET PO SCH (10:11)
[2019-09-20] MEDS: LISINOPRIL 20 MG TABLET PO SCH (10:11)
[2019-09-20] MEDS: METOPROLOL TARTRATE 25 MG TAB PO SCH ×2 (10:11→21:06)
[2019-09-20] MEDS: HONEY 1 APPL/ML TUBE TP SCH (10:12)
[2019-09-20] MEDS: NYSTATIN 15 GM POWDER TP SCH ×2 (10:12→21:06)
--- NOTE | 2019-09-20 10:42 | NUR ---
[facility] PLAN LEFT MESSAGE FOR AHSAN BIOMEDICAL INSTRUMENT TECHNICIAN FOR [facility] REGARDING DELAY IN AUTH OR DENIAL. Addendum: 09/20/19 at 1043 by REBA PHILLIP RN CM Amended: Links added.
[2019-09-20] MEDS: MAGNESIUM 2GM PREMIX 50ML 50 ML IV PRN (12:02)
[2019-09-20] MEDS: POTASSIUM CHLORIDE 10% ELIXIR 20 MEQ/15 ML UDCUP PO PRN ×2 (12:02→19:14)
[2019-09-20] MEDS: LEVOFLOXACIN 500 MG/D5W 100 ML 100 ML IV SCH (16:29)
--- NOTE | 2019-09-20 19:45 | NUR ---
ASSESSMENT PT RESTING QUIETLY IN BED. NEPRO 1.5 AT 45ML/H, TOLERATING WITHOUT DIFFICULTY. BED IS ON ROTATION MODE. 21% TRACH COLLAR IN PLACE. ASSESSMENT COMPLETED, SEE FLOW SHEET.
--- NOTE | 2019-09-20 21:03 | NUR ---
erythromycin ec not given, pt NPO with NGT, med is DO NOT CRUSH Addendum: 09/20/19 at 2131 by OANH MUHAMMAD RN RN wrong pt for note
[2019-09-20] MEDS: ATORVASTATIN CALCIUM 40 MG TABLET PO SCH (21:06)
[2019-09-21] VITALS (22 sets, daily range): BP systolic 103–134; BP diastolic 61–82
[2019-09-21] MEDS: CEFAZOLIN SODIUM 1 GM VIAL IVP SCH ×3 (02:19→18:20)
[2019-09-21 04:05] LABS: HEMATOCRIT 22.2 % (36-48); MEAN CORPUSCULAR HEMOGLOBIN 32.9 pg (27.0-33.0); MEAN CORPUSCULAR HGB CONC 31.5 g/dL (32.0-36.0); MEAN CORPUSCULAR VOLUME 104.2 fL (79-99); RED BLOOD CELL COUNT(AUTO) 2.13 MIL/uL (4.00-5.50); RED CELL DISTRIBUTION WIDTH 19.5 % (11.0-15.5); WHITE BLOOD COUNT (AUTO) 13.4 K/uL (4.8-10.8)
[2019-09-21 04:09] LABS: CREATININE 0.6 mg/dL (0.5-1.5); POTASSIUM 3.9 mmol/L (3.5-5.1)
[2019-09-21] MEDS: SODIUM BICARB 50MEQ 50ML VIAL IV SCH (05:26)
[2019-09-21] MEDS: SODIUM POLYSTYRENE SULFONATE 15 GM/60 ML ML RC SCH (05:26)
[2019-09-21] MEDS: LEVOTHYROXINE 125 MCG TABLET PO SCH (05:55)
--- NOTE | 2019-09-21 06:00 | NUR ---
BLOOD SUGAR BLOOD SUGAR 112
[2019-09-21] MEDS: ACETYLCYSTEINE 10% 100MG/ML 4ML VIAL PO SCH ×4 (06:26→23:19)
[2019-09-21] MEDS: IPRATROPIUM 0.5 MG/2.5 ML INH IH SCH ×3 (06:26→18:19)
[2019-09-21] MEDS: CYANOCOBALAMIN (VITAMIN B-12) 1,000 MCG TABLET PEG SCH (08:21)
[2019-09-21] MEDS: LISINOPRIL 20 MG TABLET PO SCH (08:21)
[2019-09-21] MEDS: METHYLPREDNISOLONE SOD SUCC 40MG/ML 1ML IVP SCH (08:21)
[2019-09-21] MEDS: HONEY 1 APPL/ML TUBE TP SCH (08:22)
[2019-09-21] MEDS: NYSTATIN 15 GM POWDER TP SCH ×2 (08:22→20:05)
[2019-09-21] MEDS: METOPROLOL TARTRATE 25 MG TAB PO SCH ×2 (08:22→20:05)
[2019-09-21] MEDS: FOLIC ACID 1 MG TABLET PO SCH (08:22)
--- NOTE | 2019-09-21 09:56 | NUR ---
SPEAKING VALVE PROSTHETIC TREATMENT COMPLETED S: Pt COOPERATIVE WITH THERAPEUTIC GOALS. Pt WITH STABLE SATURATION ABOVE 95%. 0: Pt CURRENTLY TARGETING PMSV GOALS, RESULTS ARE FOLLOWS: 1. Pt PARTICIPATED IN PMSV TRIALS WITH SUPERVISION AND WITH APPROPRIATE SPO2 & HEART RATE FOR 1 HOUR: Pt TOLERATED 3-[address] PMSV IN [address] X4 WITH APPROPRIATE SPO2. 2. Pt COORDINATED SPEECH PRODUCTION DURING PMSV TRIALS WITH APPROPRIATE SPO2: COMPLETED, SPO2 REMAINED ABOVE 95% DURING SPEECH PRODUCTION. Pt ABLE TO COORDINATE SPEECH PRODUCTION DURING PMSV. 3. Pt PRODUCED SPEECH AT SENTENCE LEVEL WITH NO RESPIRATORY DISTRESS WITH 0% ACCURACY. Pt'S LENGTH OF SPEECH PRODUCTION FROM WORD TO PHRASE LEVEL. Pt VOICED ONE WORD PER BREATH WHILE COUNTING TO 5. 4. Pt PARTICIPATED IN ADDUCTION TECHNIQUES DURING PMSV TRIALS WITH 0% ACCURACY. 5. SKILLED EDUCATION Pt/FAMILY/STAFF: COMPLETED A: Pt TOLERATING PMSV FOR UP TO 4 MINUTES WITH NO RESPIRATORY DISTRESS NOTED. Pt GESTURED WITH HAND WHEN SHE WANTED PMSV REMOVED. P: RECOMMEND THE CONTINUATION OF PMSV TRIALS INTERMITTENTLY WHILE BEING SUPERVISED. SENIOR VALIDATION ENGINEER COORDINATED WITH NURSE MENENDEZ. SENIOR VALIDATION ENGINEER WILL CONTINUE TO FOLLOW Pt DURING THE LENGTH OF STAY IN THE HOSPITAL TO CONTINUE ADDRESSING PMSV GOALS. Addendum: 09/21/[address] [facility] Amended: Links added.
--- NOTE | 2019-09-21 11:30 | NUR ---
PHYSICAL THERAPY PATIENT ABLE TO TOLERATE SITTING AT THE EDGE OF THE BED WITH PT ON STANDBY. PATIENT ABLE TO HOLD HERSELF UP IN SITTING POSITION FOR FEW MINUTES.
[2019-09-21] MEDS: LEVOFLOXACIN 500 MG/D5W 100 ML 100 ML IV SCH (15:00)
--- NOTE | 2019-09-21 17:23 | NUR ---
DC PLAN SPOKE TO [facility] IAN HOLDER FROM INSURANCE. SENT UPDATES TO FACILITY. Addendum: 09/21/19 at 1723 by REBA PHILLIP RN CM Amended: Links added.
--- NOTE | 2019-09-21 19:15 | NUR ---
ASSESSMENT PT RESTING QUIETLY IN BED. NEPRO 1.5 AT 45ML/H, TOLERATING WITHOUT DIFFICULTY. BED IS ON ROTATION MODE. ANGELES 5FR PICC PATENT AND INTACT. 28% TRACH COLLAR IN PLACE. ASSESSMENT COMPLETED, SEE FLOW SHEET.
[2019-09-21] MEDS: ATORVASTATIN CALCIUM 40 MG TABLET PO SCH (20:05)
[2019-09-21] MEDS ORDERED: IPRATROPIUM 0.5 MG/2.5 ML INH IH ONE (23:13)
[2019-09-22] VITALS (34 sets, daily range): BP systolic 106–136; BP diastolic 55–92
[2019-09-22] MEDS: CEFAZOLIN SODIUM 1 GM VIAL IVP SCH (01:42)
[2019-09-22] MEDS: SODIUM BICARB 50MEQ 50ML VIAL IV SCH (01:43)
[2019-09-22] MEDS: SODIUM POLYSTYRENE SULFONATE 15 GM/60 ML ML RC SCH (01:43)
[2019-09-22] MEDS: LEVOTHYROXINE 125 MCG TABLET PO SCH (05:39)
[2019-09-22] MEDS ORDERED: IPRATROPIUM 0.5 MG/2.5 ML INH IH ONE ×3 (06:40→18:35)
[2019-09-22] MEDS: ACETYLCYSTEINE 10% 100MG/ML 4ML VIAL PO SCH ×3 (06:51→18:00)
[2019-09-22] MEDS: NYSTATIN 15 GM POWDER TP SCH ×2 (08:14→21:48)
[2019-09-22] MEDS: CYANOCOBALAMIN (VITAMIN B-12) 1,000 MCG TABLET PEG SCH (08:14)
[2019-09-22] MEDS: LISINOPRIL 20 MG TABLET PO SCH (08:14)
[2019-09-22] MEDS: HONEY 1 APPL/ML TUBE TP SCH (08:14)
[2019-09-22] MEDS: FOLIC ACID 1 MG TABLET PO SCH (08:14)
[2019-09-22] MEDS: METOPROLOL TARTRATE 25 MG TAB PO SCH ×2 (08:15→21:48)
[2019-09-22] MEDS: METHYLPREDNISOLONE SOD SUCC 40MG/ML 1ML IVP SCH (08:15)
--- NOTE | 2019-09-22 09:30 | NUR ---
SPEAKING VALVE PROSTHETIC TREATMENT COMPLETED S: Pt COOPERATIVE WITH THERAPEUTIC GOALS. Pt WITH 94% SPO2. 0: Pt CURRENTLY TARGETING PMSV GOALS, RESULTS ARE FOLLOWS: 1. Pt PARTICIPATED IN PMSV TRIALS WITH SUPERVISION AND WITH APPROPRIATE SPO2 & HEART RATE FOR 1 HOUR: Pt TOLERATED 4-5 MIN[address]ES WITH PMSV IN PLACE X5 WITH NO DESATURATION. 2. Pt COORDINATED SPEECH PRODUCTION DURING PMSV TRIALS WITH APPROPRIATE SPO2: COMPLETED, SPO2 REMAINED ABOVE 93% DURING SPEECH PRODUCTION. Pt ABLE TO COORDINATE SPEECH PRODUCTION DURING PMSV. 3. Pt PRODUCED SPEECH AT SENTENCE LEVEL WITH NO RESPIRATORY DISTRESS WITH 60% ACCURACY. Pt'S LENGTH OF SPEECH PRODUCTION FROM PHRASE TO CONVERSATIONAL LEVEL. 4. Pt PARTICIPATED IN ADDUCTION TECHNIQUES DURING PMSV TRIALS WITH 30% ACCURACY. 5. SKILLED EDUCATION Pt/FAMILY/STAFF: COMPLETED A: Pt GESTURED WITH HAND WHEN SHE WANTED PMSV REMOVED. IMPROVEMENTS WITH PMSV TOLERANCE NOTED TODAY. P: RECOMMEND THE CONTINUATION OF PMSV TRIALS INTERMITTENTLY WHILE BEING SUPERVISED. ACCOUNTING INSTRUCTOR COORDINATED WITH NURSE MENENDEZ. ACCOUNTING INSTRUCTOR WILL CONTINUE TO FOLLOW Pt DURING THE LENGTH OF STAY IN THE HOSPITAL TO CONTINUE ADDRESSING PMSV GOALS. Addendum: 09/22/[address] [facility] Amended: Links added.
[2019-09-22] MEDS: IPRATROPIUM 0.5 MG/2.5 ML INH IH SCH (10:57)
[2019-09-22 11:37] LABS: HEMATOCRIT 22.1 % (36-48); MEAN CORPUSCULAR HEMOGLOBIN 32.7 pg (27.0-33.0); MEAN CORPUSCULAR HGB CONC 31.2 g/dL (32.0-36.0); MEAN CORPUSCULAR VOLUME 104.7 fL (79-99); NUCLEATED RED BLOOD CELLS 0.2 % (0.0-0.19); RED BLOOD CELL COUNT(AUTO) 2.11 MIL/uL (4.00-5.50); RED CELL DISTRIBUTION WIDTH 19.5 % (11.0-15.5); WHITE BLOOD COUNT (AUTO) 12.4 K/uL (4.8-10.8)
[2019-09-22 11:53] LABS: CREATININE 0.7 mg/dL (0.5-1.5); POTASSIUM 3.4 mmol/L (3.5-5.1)
[2019-09-22 11:54] LABS: ALBUMIN 1.8 g/dL (3.5-5.0); BILIRUBIN,TOTAL 0.4 mg/dL (0.2-1.0); MAGNESIUM 1.6 mg/dL (1.80-2.40); PHOSPHORUS 3.3 mg/dL (2.5-4.9); TOTAL PROTEIN, SERUM 5.1 g/dL (6.0-8.3)
[2019-09-22] MEDS: LEVOFLOXACIN 500 MG/D5W 100 ML 100 ML IV SCH (12:30)
[2019-09-22] MEDS ORDERED: FUROSEMIDE 10 MG/ML 2ML VIAL IV SCH (14:15)
[2019-09-22] MEDS ORDERED: SODIUM CHLORIDE 0.9% 500ML 500 ML IV ONE (15:54)
--- NOTE | 2019-09-22 17:34 | NUR ---
DC PLAN [facility] CALLED SAID PATIENT ACCEPTED. RECEIVED INSURANCE AUTH. CALLED DR Szymanski TO SEE IF HE WOULD BE ADMITTING. SAID IT WILL BE UNDER BENCHMARK BUT NO DC TODAY. PATIENT RECEIVING BLOOD. LET DIRECTOR KNOW. Addendum: 09/22/19 at 1736 by REBA PHILLIP RN CM Amended: Links added.
[2019-09-22] MEDS: ATORVASTATIN CALCIUM 40 MG TABLET PO SCH (21:48)
[2019-09-22] MEDS ORDERED: FUROSEMIDE 10 MG/ML 2ML VIAL ONE (21:51)
[2019-09-23] VITALS (25 sets, daily range): BP systolic 107–144; BP diastolic 57–86
[2019-09-23 04:39] LABS: ABG BASE EXCESS 3.2 mmol/L (-2.0-3.0); ABG HCO3 25.4 mmol/L (21.0-28.0); ABG OXYGEN SATURATION 93.2 % (95.0-99.0); ABG PCO2 32 mmHg (32-45)
[2019-09-23] MEDS: ACETYLCYSTEINE 10% 100MG/ML 4ML VIAL PO SCH ×2 (06:00→11:11)
[2019-09-23 06:22] LABS: HEMATOCRIT 25.1 % (36-48); MEAN CORPUSCULAR HGB CONC 32.7 g/dL (32.0-36.0); NUCLEATED RED BLOOD CELLS 0.4 % (0.0-0.19); RED BLOOD CELL COUNT(AUTO) 2.56 MIL/uL (4.00-5.50); WHITE BLOOD COUNT (AUTO) 10.6 K/uL (4.8-10.8)
[2019-09-23] MEDS: LEVOTHYROXINE 125 MCG TABLET PO SCH (06:32)
[2019-09-23 06:58] LABS: MAGNESIUM 1.7 mg/dL (1.80-2.40)
[2019-09-23] MEDS: METHYLPREDNISOLONE SOD SUCC 40MG/ML 1ML IVP SCH (08:17)
[2019-09-23] MEDS: LISINOPRIL 20 MG TABLET PO SCH (08:17)
[2019-09-23] MEDS: CYANOCOBALAMIN (VITAMIN B-12) 1,000 MCG TABLET PEG SCH (08:17)
[2019-09-23] MEDS: HONEY 1 APPL/ML TUBE TP SCH (08:18)
[2019-09-23] MEDS: METOPROLOL TARTRATE 25 MG TAB PO SCH (08:18)
[2019-09-23] MEDS: FOLIC ACID 1 MG TABLET PO SCH (08:18)
[2019-09-23] MEDS: NYSTATIN 15 GM POWDER TP SCH (08:19)
--- NOTE | 2019-09-23 08:50 | NUR ---
SPEAKING VALVE PROSTHETIC TREATMENT COMPLETED S: Pt COOPERATIVE WITH THERAPEUTIC GOALS. Pt WITH 94% SPO2. 0: Pt CURRENTLY TARGETING PMSV GOALS, RESULTS ARE FOLLOWS: 1. Pt PARTICIPATED IN PMSV TRIALS WITH SUPERVISION AND WITH APPROPRIATE SPO2 & HEART RATE FOR 1 HOUR: Pt TOLERATED 25 MIN[address]ES WITH PMSV IN PLACE WITH NO DESATURATION. 2. Pt COORDINATED SPEECH PRODUCTION DURING PMSV TRIALS WITH APPROPRIATE SPO2: COMPLETED, SPO2 REMAINED ABOVE 93% DURING SPEECH PRODUCTION. Pt ABLE TO COORDINATE SPEECH PRODUCTION DURING PMSV. 3. Pt PRODUCED SPEECH AT SENTENCE LEVEL WITH NO RESPIRATORY DISTRESS WITH 100% ACCURACY. Pt'S LENGTH OF SPEECH PRODUCTION AT SENTENCE LEVEL. 4. Pt PARTICIPATED IN ADDUCTION TECHNIQUES DURING PMSV TRIALS WITH 50% ACCURACY. 5. SKILLED EDUCATION Pt/FAMILY/STAFF: COMPLETED A: SIGNIFICANT IMPROVEMENTS NOTED WITH PMSV TOLERANCE TODAY. P: RECOMMEND THE CONTINUATION OF PMSV TRIALS INTERMITTENTLY WHILE BEING SUPERVISED. GREY GOODS MARKER COORDINATED WITH NURSE ELAINE. GREY GOODS MARKER WILL CONTINUE TO FOLLOW Pt DURING THE LENGTH OF STAY IN THE HOSPITAL TO CONTINUE ADDRESSING PMSV GOALS. Addendum: 09/23/[address] [facility] Amended: Links added.
--- NOTE | 2019-09-23 09:30 | NUR ---
SPOKE TO STAFF FROM [facility] AND ADVISED THEM OF PRESENT CONDITION AND PLAN OF CARE.
[2019-09-23] MEDS ORDERED: IPRATROPIUM 0.5 MG/2.5 ML INH IH SCH (12:00)
[2019-09-23] MEDS: LEVOFLOXACIN 500 MG/D5W 100 ML 100 ML IV SCH (15:03)
--- NOTE | 2019-09-23 15:25 | NUR ---
GAVE REPORT TO SCARLET FROM [facility] AND EMS WAS CALLED TO TAKE PATIENT TO [facility].
--- NOTE | 2019-09-23 17:08 | NUR ---
EMS HERE AND PT WAS TRANSPORTED TO [facility]. MORAIMA LINDA VALVE SEND WITH PATIENT.
== END 2019-09-23 17:08 | DRG 4 ==
LOC: EDH 08:58 → EDHIP 13:00 → 2CH 15:27 → DAHIP 08-22 06:42 → 2CH 08-25 18:30 → 2BH 08-29 16:39
PROVIDERS: ADMIT Internal Medicine Infectious Disease; ATTEND Internal Medicine Infectious Disease
PROC: 5A12012 Performance of Cardiac Output, Single, Manual (ICD-10-PCS; 2019-08-19)
PROC: 5A1955Z Respiratory Ventilation, Greater than 96 Consecutive Hours (ICD-10-PCS; 2019-08-21)
PROC: 0BH17EZ Insertion of Endotracheal Airway into Trachea, Via Natural or Artificial Opening (ICD-10-PCS; 2019-08-21)
PROC: 0BH17EZ Insertion of Endotracheal Airway into Trachea, Via Natural or Artificial Opening (ICD-10-PCS; 2019-08-21)
PROC: 5A09357 Assistance with Respiratory Ventilation, Less than 24 Consecutive Hours, Continuous Positive Airway Pressure (ICD-10-PCS; 2019-08-26)
PROC: 5A09357 Assistance with Respiratory Ventilation, Less than 24 Consecutive Hours, Continuous Positive Airway Pressure (ICD-10-PCS; 2019-08-27)
PROC: 5A09357 Assistance with Respiratory Ventilation, Less than 24 Consecutive Hours, Continuous Positive Airway Pressure (ICD-10-PCS; 2019-08-28)
PROC: 5A09357 Assistance with Respiratory Ventilation, Less than 24 Consecutive Hours, Continuous Positive Airway Pressure (ICD-10-PCS; 2019-08-29)
PROC: 5A1955Z Respiratory Ventilation, Greater than 96 Consecutive Hours (ICD-10-PCS; 2019-08-30)
PROC: 5A09357 Assistance with Respiratory Ventilation, Less than 24 Consecutive Hours, Continuous Positive Airway Pressure (ICD-10-PCS; 2019-08-30)
PROC: 0B978ZZ Drainage of Left Main Bronchus, Via Natural or Artificial Opening Endoscopic (ICD-10-PCS; 2019-08-30)
PROC: 0B9J8ZX Drainage of Left Lower Lung Lobe, Via Natural or Artificial Opening Endoscopic, Diagnostic (ICD-10-PCS; 2019-08-30)
PROC: 0W9B30Z Drainage of Left Pleural Cavity with Drainage Device, Percutaneous Approach (ICD-10-PCS; 2019-08-30)
PROC: 0W9930Z Drainage of Right Pleural Cavity with Drainage Device, Percutaneous Approach (ICD-10-PCS; 2019-08-30)
PROC: 02HV33Z Insertion of Infusion Device into Superior Vena Cava, Percutaneous Approach (ICD-10-PCS; 2019-08-31)
PROC: 0B110F4 Bypass Trachea to Cutaneous with Tracheostomy Device, Open Approach (ICD-10-PCS; 2019-09-03)
PROC: 5A1955Z Respiratory Ventilation, Greater than 96 Consecutive Hours (ICD-10-PCS; principal; 2019-09-03 11:27)
PROC: 5A09357 Assistance with Respiratory Ventilation, Less than 24 Consecutive Hours, Continuous Positive Airway Pressure (ICD-10-PCS; 2019-09-06)
PROC: 5A09357 Assistance with Respiratory Ventilation, Less than 24 Consecutive Hours, Continuous Positive Airway Pressure (ICD-10-PCS; 2019-09-07)
PROC: 5A09357 Assistance with Respiratory Ventilation, Less than 24 Consecutive Hours, Continuous Positive Airway Pressure (ICD-10-PCS; 2019-09-08)
PROC: 5A09357 Assistance with Respiratory Ventilation, Less than 24 Consecutive Hours, Continuous Positive Airway Pressure (ICD-10-PCS; 2019-09-09)
PROC: 0JPV3XZ Removal of Tunneled Vascular Access Device from Upper Extremity Subcutaneous Tissue and Fascia, Percutaneous Approach (ICD-10-PCS; 2019-09-13)
PROC: 30233N1 Transfusion of Nonautologous Red Blood Cells into Peripheral Vein, Percutaneous Approach (ICD-10-PCS; 2019-09-14)
DX: A41.9 Sepsis, unspecified organism (principal); J18.9 Pneumonia, unspecified organism; R65.21 Severe sepsis with septic shock; E43 Unspecified severe protein-calorie malnutrition; I50.33 Acute on chronic diastolic (congestive) heart failure; J96.01 Acute respiratory failure with hypoxia; I33.0 Acute and subacute infective endocarditis; I63.40 Cerebral infarction due to embolism of unspecified cerebral artery; G93.40 Encephalopathy, unspecified; I13.0 Hypertensive heart and chronic kidney disease with heart failure and stage 1 through stage 4 chronic kidney disease, or unspecified chronic kidney disease; N39.0 Urinary tract infection, site not specified; E87.1 Hypo-osmolality and hyponatremia; E87.0 Hyperosmolality and hypernatremia; E87.4 Mixed disorder of acid-base balance; K92.2 Gastrointestinal hemorrhage, unspecified; M46.26 Osteomyelitis of vertebra, lumbar region; R47.01 Aphasia; Z99.11 Dependence on respirator [ventilator] status; N18.4 Chronic kidney disease, stage 4 (severe); N17.9 Acute kidney failure, unspecified; I05.9 Rheumatic mitral valve disease, unspecified; M46.46 Discitis, unspecified, lumbar region; R13.12 Dysphagia, oropharyngeal phase; L98.429 Non-pressure chronic ulcer of back with unspecified severity; E11.22 Type 2 diabetes mellitus with diabetic chronic kidney disease; B96.5 Pseudomonas (aeruginosa) (mallei) (pseudomallei) as the cause of diseases classified elsewhere; D64.9 Anemia, unspecified; E11.69 Type 2 diabetes mellitus with other specified complication; E66.01 Morbid (severe) obesity due to excess calories; E87.5 Hyperkalemia; S30.1XXA Contusion of abdominal wall, initial encounter; T50.2X5A Adverse effect of carbonic-anhydrase inhibitors, benzothiadiazides and other diuretics, initial encounter; Y95 Nosocomial condition; L89.322 Pressure ulcer of left buttock, stage 2; Z20.828 Contact with and (suspected) exposure to other viral communicable diseases; Y92.89 Other specified places as the place of occurrence of the external cause; Y93.89 Activity, other specified; Y99.8 Other external cause status; Z74.01 Bed confinement status; Z93.1 Gastrostomy status; Z68.32 Body mass index [BMI] 32.0-32.9, adult; Z88.0 Allergy status to penicillin; Z88.2 Allergy status to sulfonamides; Z88.8 Allergy status to other drugs, medicaments and biological substances; Z79.899 Other long term (current) drug therapy; Z86.14 Personal history of Methicillin resistant Staphylococcus aureus infection; Z86.73 Personal history of transient ischemic attack (TIA), and cerebral infarction without residual deficits; Z86.79 Personal history of other diseases of the circulatory system; Z87.01 Personal history of pneumonia (recurrent); Z95.3 Presence of xenogenic heart valve; L89.152 Pressure ulcer of sacral region, stage 2
CPT/HCPCS: 31500; 36415; 36430; 36556; 36589; 36600; 43246; 43255; 70450; 71045; 71250; 71275; 74018; 74176; 76882; 80048; 80053; 80069; 81001; 82140; 82270; 82550; 82728; 82803; 82948; 83605; 83615; 83735; 83874; 83880; 84100; 84132; 84145; 84439; 84443; 84480; 84484; 85014; 85018; 85025; 85027; 85378; 85610; 85730; 85732; 86140; 86677; 86850; 86900; 86901; 86922; 87040; 87071; 87077; 87088; 87186; 87205; 87493; 87633; 87635; 87804; 92507; 92597; 92950; 93005; 93306; 93356; 93970; 94002; 94003; 94640; 94660; 94664; 94667; 94668; 97039; 99291; A4344; A4606; C1751; C1894; C9113; G0378; J0282; J0330; J0610; J0690; J1100; J1450; J1644; J1650; J1815; J1940; J1956; J2020; J2185; J2250; J2704; J2920; J3010; J3430; J3475; J3480; J3490; J7030; J7040; J7050; J7060; J7070; J7608; P9016; Q9967